=== PATIENT | male | born 1935 | race Hispanic/Latino ===

== ENCOUNTER 2017-08-14 06:24 | Day surgery (SDC) | payer MEDICARE ==
[2017-08-13 14:21] VITALS: BMI 32.5
[2017-08-14 07:06] LABS: BASO # 0.1 K/uL (0.0-0.2); BASO % 1.1 % (0.0-2.0); EOS # 0.2 K/uL (0.0-0.7); HEMOGLOBIN 14.2 g/dL (12.0-18.0); LYMPH # 0.7 K/uL (1.0-4.3); LYMPH % 9.1 % (20.0-40.0); MEAN CELL VOLUME 93.5 fL (80.0-94.0); MEAN CORPUSCULAR HEMOGLOBIN 32.3 pg (27.0-31.0); MEAN CORPUSCULAR HGB CONC 34.5 g/dL (33.0-37.0); MEAN PLATELET VOLUME 7.2 fL (7.2-11.7); MONO # 0.7 K/uL (0.0-0.8); MONO % 8.4 % (0.0-10.0); NEUT # 6.1 K/uL (1.8-7.0); NEUT % 78.4 % (50.0-75.0); PLATELET COUNT 252 K/uL (130-400); RBC 4.41 Mil/uL (4.40-5.90); RED CELL DISTRIBUTION WIDTH 13.5 % (11.5-14.5); WHITE BLOOD COUNT 7.8 K/uL (4.8-10.8)
[2017-08-14 07:27] LABS: BLOOD UREA NITROGEN 32 mg/dL (9-20); GFR AFRICAN-AMERICAN > 60; GFR NON-AFRICAN AMERICAN > 60
[2017-08-14 07:31] LABS: INR 1.1; PROTHROMBIN TIME 12.7 SECONDS (9.7-12.2)
[2017-08-14] MEDS ORDERED: Iodixanol 320 MG/ML 200 ML BOTTLE IV ONE ×2 (07:50→09:06)
[2017-08-14] MEDS ORDERED: Midazolam 2 MG/2 ML VIAL ONE (07:50)
[2017-08-14 08:18] LABS: EOSINOPHIL 2 % (0-4); LYMPHOCYTE 5 % (20-40); MONOCYTE 8 % (0-10); NEUTROPHIL 85 % (50-75); TOTAL CELLS COUNTED 100
[2017-08-14 08:19] LABS: PLATELET ESTIMATE NORMAL (NORMAL)
[2017-08-14 08:20] LABS: ANISOCYTOSIS SLIGHT; POLYCHROMIC SLIGHT
[2017-08-14 08:21] LABS: TOXIC GRANULATION PRESENT
[2017-08-14 09:36] LABS: VENOUS BLOOD GAS BASE EXCESS -2.8 mmol/L (0.0-2.0); VENOUS BLOOD GAS PCO2 44 mmHg (40-60); VENOUS BLOOD GAS PO2 32 mm/Hg (30-55); VENOUS BLOOD PH 7.33 (7.32-7.43)
[2017-08-14 09:40] LABS: ARTERIAL BLOOD GAS HCO3 21.7 mmol/L (21-28); ARTERIAL BLOOD GAS HEMOGLOBIN 12.6 g/dL (11.7-17.4); ARTERIAL BLOOD GAS O2 SAT 94.5 % (95-98); ARTERIAL BLOOD GAS PCO2 40 mm/Hg (35-45); ARTERIAL BLOOD GAS PH 7.34 (7.35-7.45); ARTERIAL BLOOD GAS PO2 67 mm/Hg (80-100); ARTERIAL BLOOD GAS TCO2 22.8 mmol/L (22-28)
[2017-08-14] MEDS ORDERED: Sodium Chloride 0.9% 500 ML IV SCH (10:15)
[2017-08-14] MEDS ORDERED: guaiFENesin 100 mg/5 ml Syrup UD PO STA (13:36)
[2017-08-14 15:38] LABS: SQUAMOUS EPITHIAL 2 /hpf (0-5); URINE AMORPHOUS SEDIMENT FEW /ul (<OCC); URINE BACTERIA FEW (<OCC); URINE BILIRUBIN NEGATIVE (NEGATIVE); URINE BLOOD 1+ (NEGATIVE); URINE CALCIUM OXALATE CRYSTALS FEW /hpf (<OCC); URINE CLARITY Turbid (Clear); URINE COLOR Amber (YELLOW); URINE GLUCOSE (UA) NORMAL (Normal); URINE LEUKOCYTE ESTERASE 3+ Leu/uL (Negative); URINE PROTEIN 3+ mg/dL (NEGATIVE); URINE UROBILINOGEN NORMAL mg/dL (0.2-1.0)
--- NOTE | 2017-08-19 08:48 | CARDCATH ---
PROCEDURE DATE: 08/14/2017 PROCEDURES: 1. Left and right heart catheterization. 2. Coronary angiogram. 3. Thoracic aortogram. 4. Radiological supervision and radiological interpretation of the cardiac catheterization. CLINICAL INDICATIONS: 1. Dyspnea. 2. Severe symptomatic aortic stenosis. 3. Coronary artery disease. 4. Hypertension. 5. Hyperlipidemia. PERFORMING PHYSICIAN: Edis Armando MD PROCEDURE IN DETAIL: After informed consent, the patient was prepped and draped in the usual sterile fashion. Lidocaine 2% was given in the right groin for local anesthesia. Using micropuncture technique, 6-Armenian sheath was introduced into right common femoral artery and a 7-Armenian sheath was introduced into right common femoral vein. Using the [place]-Caroline catheter, right heart catheterization was performed. A JL5 6-Armenian diagnostic catheter engaged into left main coronary artery. Contrast injected and left coronary angiogram was performed. Then, JR4 6-Armenian diagnostic catheter engaged into right coronary artery. Contrast injected and right coronary angiogram was performed. Then using AL1 diagnostic catheter with a stiff shaft straight Glidewire, left ventricle was entered. Using the AL1 diagnostic catheter and straight stiff shaft Glidewire, aortic valve was crossed into the left ventricle. Later the wire was exchanged and a pigtail catheter was introduced. LV end-diastolic pressure was measured. Contrast injected and the LV angiogram was performed. Pressure gradient across the aortic valve was measured. The patient tolerated the procedure well. FINDINGS OF THE LEFT HEART CATHETERIZATION: 1. Left main coronary artery is patent. 2. Prior stent in the LAD is patent, however, ostial LAD has 85% calcific stenosis. Mid and distal LAD is patent. 3. Ramus coronary artery is patent. 4. Left circumflex has a mid 50% nonobstructive stenosis. 5. Right coronary artery is codominant system. Possible right coronary artery has 70% to 80% calcific concentric stenosis. 6. LV ejection fraction is approximately 50%. Mild global hypokinesis. EDP was 35. Mean gradient across the aortic valve is 35 mmHg. FINDINGS OF THE RIGHT HEART CATHETERIZATION: 1. Pressure, PA is 45/15, mean of 27, RV is 46/9, mean of 15, RA 7. Calculation: PA 71.9%, SA 94.5%, cardiac output 5.8 L per minute, cardiac index 3.03 minutes per sq m. 2. LV end-diastolic pressure is 35. 3. LV systolic pressure is 205. 4. Aortic systolic pressure is 170, gradient of 35. Calculated aortic valve area by Hakki equation is 0.9 sq cm. IMPRESSION: 1. Calcific left anterior descending and right coronary artery disease, as described above. 2. Severe aortic stenosis. 3. [id number] pulmonary hypertension. Edis Armando MD
== END 2017-08-14 14:05 | disposition home or self-care (01) ==
LOC: C.CATHLAB 06:24
PROVIDERS: ATTEND Internal Medicine Cardiovascular Disease
DX: I25.10 Atherosclerotic heart disease of native coronary artery without angina pectoris (principal); I35.0 Nonrheumatic aortic (valve) stenosis; I10 Essential (primary) hypertension; E78.5 Hyperlipidemia, unspecified; Z95.5 Presence of coronary angioplasty implant and graft; I27.20 Pulmonary hypertension, unspecified
CPT/HCPCS: 36415; 36600; 80048; 81001; 82803; 85025; 85610; 85730; 87086; 87181; 93453; 93567; C1714; C1760; C1766; C1769; C1887; C1893; J1644; J2250; J3010; J7040; Q9966

== ENCOUNTER 2017-11-23 12:09 | Inpatient (IN) | payer MEDICARE ==
[2017-11-23 12:09] VITALS: BMI 32.5
[2017-11-23 13:04] LABS: BASO # 0.1 K/uL (0.0-0.2); BASO % 0.8 % (0.0-2.0); EOS # 0.2 K/uL (0.0-0.7); EOS % 2.3 % (0.0-4.0); LYMPH # 0.8 K/uL (1.0-4.3); LYMPH % 10.5 % (20.0-40.0); MEAN CELL VOLUME 92.1 fL (80.0-94.0); MEAN CORPUSCULAR HEMOGLOBIN 30.4 pg (27.0-31.0); MEAN PLATELET VOLUME 7.5 fL (7.2-11.7); MONO # 0.6 K/uL (0.0-0.8); MONO % 8.9 % (0.0-10.0); NEUT # 5.6 K/uL (1.8-7.0); NEUT % 77.5 % (50.0-75.0); NRBC % 0.1 % (0.0-2.0); RBC 3.48 Mil/uL (4.40-5.90); RED CELL DISTRIBUTION WIDTH 18.2 % (11.5-14.5); WHITE BLOOD COUNT 7.2 K/uL (4.8-10.8)
[2017-11-23 13:16] LABS: HEMOGLOBIN 10.6 g/dL (12.0-18.0)
[2017-11-23 13:18] LABS: ALB/GLOB RATIO 1.2 (1.0-2.1); ALBUMIN 3.5 g/dL (3.5-5.0); CALCIUM 8.3 mg/dl (8.6-10.4)
[2017-11-23 14:31] LABS: SQUAMOUS EPITHIAL < 1 /hpf (0-5); URINE BACTERIA OCC (<OCC); URINE BILIRUBIN NEGATIVE (NEGATIVE); URINE BLOOD 2+ (NEGATIVE); URINE CLARITY Hazy (Clear); URINE COLOR Amber (YELLOW); URINE GLUCOSE (UA) NORMAL (Normal); URINE LEUKOCYTE ESTERASE 3+ Leu/uL (Negative); URINE PROTEIN 2+ mg/dL (NEGATIVE); URINE TRIPLE PHOSPHATE CRYSTAL MOD /hpf (<OCC); URINE UROBILINOGEN NORMAL mg/dL (0.2-1.0)
--- NOTE | 2017-11-23 14:40 | RAD ---
PROCEDURE: CHEST RADIOGRAPH, 1 VIEW HISTORY: LE edema COMPARISON: 05/11/2014 FINDINGS: LUNGS: Pulmonary vascular congestion. PLEURA: No pneumothorax or pleural fluid seen. CARDIOVASCULAR: Cardiomegaly. OSSEOUS STRUCTURES: No significant abnormalities. VISUALIZED UPPER ABDOMEN: Normal. OTHER FINDINGS: None. IMPRESSION: Cardiomegaly/CHF. Similar degree of pulmonary vascular congestion identified on the prior study.
--- NOTE | 2017-11-23 14:49 | C.PDOC ---
History Of Present Illness 82 y/o male presents to ED for complaints of rash and swelling on bilateral legs that began 2 days ago. Patient also reports symptoms are associated with subjective fever. Patient states he called Dr. Ramirez's office and was advised to come to ER. Chief Complaint (Nursing): Lower Extremity Problem/Injury History Per: Patient History/Exam Limitations: no limitations Onset/Duration Of Symptoms: Days (2) Current Symptoms Are (Timing): Still Present Recent travel outside of the [place]: No Past Medical History Reviewed: Historical Data, Nursing Documentation, Vital Signs Vital Signs: Last Vital Signs Temp 98.2 F 11/23/17 17:20 Pulse 82 11/23/17 17:20 Resp 20 11/23/17 17:20 BP 143/74 11/23/17 17:20 Pulse Ox 96 11/23/17 17:20 - Medical History PMH: Arthritis, CAD, CHF, Dementia, Diabetes, Gall Bladder Disease, HTN, Hypercholesterolemia Surgical History: Cholecystectomy, Coronary Stent - [facility] Procedures DEBRIDEMENT OF NAIL, NAIL BED OR NAIL FOLD (04/19/13) INDIVID PSYCHOTHERAP NEC (04/19/13) LEFT HEART CARDIAC CATH (05/11/14) LT HEART ANGIOCARDIOGRAM (05/11/14) OTHER GROUP THERAPY (04/19/13) REMOVE EYELID LESION NOS (04/08/99) SKIN REPAIR & PLASTY NEC (04/08/99) Family History: States: Unknown Family Hx - Social History Hx Tobacco Use: No Hx Alcohol Use: No Hx Substance Use: No - Immunization History Hx Tetanus Toxoid Vaccination: No Hx Influenza Vaccination: No Hx Pneumococcal Vaccination: No Review Of Systems Constitutional: Positive for: Fever (subjective ). Negative for: Chills Cardiovascular: Negative for: Chest Pain Respiratory: Negative for: Shortness of Breath Gastrointestinal: Negative for: Nausea, Vomiting, Abdominal Pain, Diarrhea Skin: Positive for: Rash (On bilateral legs and swelling) Neurological: Negative for: Weakness, Numbness Physical Exam - Physical Exam Appears: Non-toxic, No Acute Distress Skin: Rash (Erythematous spots on bilateral legs, some linear and some clustered. ) Head: Atraumatic, Normacephalic Eye(s): bilateral: Normal Inspection, PERRL, EOMI Nose: Normal, No Discharge Oral Mucosa: Moist Tongue: Normal Appearing, No Swelling Lips: Normal Appearing, No Swelling Throat: Normal, No Erythema, No Exudate, No Drooling, No Mass Neck: Supple Chest: Symmetrical, No Tenderness Cardiovascular: Rhythm Regular, Murmur (Harsh 3 out of 6 systolic murmur ) Respiratory: Normal Breath Sounds, No Decreased Breath Sounds, No Rales, No Rhonchi, No Wheezing Gastrointestinal/Abdominal: Soft, No Tenderness Extremity: No Calf Tenderness, Swelling (Bilateral; Top of right foot more erythematous and swollen) Neurological/Psych: Oriented x3 (Awake and alert), Normal Speech (Speaking full sentences), Other (No focal deficits ) Gait: Steady ED Course And Treatment - Laboratory Results Result Diagrams: 11/23/17 12:58 11/23/17 12:58 O2 Sat by Pulse Oximetry: 95 (RA) Pulse Ox Interpretation: Normal - Other Rad CXR X-Ray: Viewed By Me, Read By Radiologist Interpretation: PROCEDURE: CHEST RADIOGRAPH, 1 VIEW. HISTORY: LE edema. COMPARISON: 05/11/2014. FINDINGS: LUNGS: Pulmonary vascular congestion. PLEURA: No pneumothorax or pleural fluid seen. CARDIOVASCULAR: Cardiomegaly. OSSEOUS STRUCTURES: No significant abnormalities. VISUALIZED UPPER ABDOMEN: Normal. OTHER FINDINGS: None. IMPRESSION: Cardiomegaly/CHF. Similar degree of pulmonary vascular congestion identified on the prior study. Progress Note: Ordered blood work, EKG, CXR, blood culture, and urinalysis. Labs show signs of UTI. Spoke to and he accepted to take him for admission. Patient will be given one dose of Rocephin IV. Disposition - Disposition Disposition: HOSPITALIZED Disposition Time: 15:00 Condition: FAIR - Clinical Impression Clinical Impression: UTI (urinary tract infection), Rash and nonspecific skin eruption - PA / [employer] SUPERVISOR / Resident Statement MD/DO has reviewed & agrees with the documentation as recorded. - Scribe Statement The provider has reviewed the documentation as recorded by the Luis Felipeibe Cam Ng All medical record entries made by the Devi were at my direction and personally dictated by me. I have reviewed the chart and agree that the record accurately reflects my personal performance of the history, physical exam, medical decision making, and the department course for this patient. I have also personally directed, reviewed, and agree with the discharge instructions and disposition. Decision To Admit - Pt Status Changed To: Hospital Disposition Of: Observation - . Bed Request Type: Regular Admitting Physician: Keely Ramirez Patient Diagnosis: UTI (urinary tract infection), Rash and nonspecific skin eruption
[2017-11-23] MEDS ORDERED: cefTRIAXone IV 1 gm in Dextros 50 ML IVPB ONE (15:07)
[2017-11-23 16:15] VITALS: RESP 20
[2017-11-23] MEDS: metroNIDAZOLE IV 250mg/50 ml 250 MG/50 ML BAG IVPB SCH (22:22)
[2017-11-23] MEDS: (Novolin R) Insulin Human Regular 100 units/ml vial SC SCH (22:22)
[2017-11-24] MEDS: metroNIDAZOLE IV 250mg/50 ml 250 MG/50 ML BAG IVPB SCH ×3 (05:31→21:51)
[2017-11-24] MEDS: (Novolin R) Insulin Human Regular 100 units/ml vial SC SCH ×4 (07:39→21:52)
--- NOTE | 2017-11-24 22:06 | CP.PCM.HP ---
History of Present Illness - History of Present Illness History of Present Illness: Chief complaint: Bilateral leg rash HPI: 82-year-old male with a history of hypertension CAD hypercholesterolemia CAD, status post a stent in 2014, also had a cholecystectomy in the past. Patient also has a history of aortic stenosis. He claims that he had a heart attack 2. He came to the emergency room with increasing symptoms of bilateral leg swelling. He is also complaining of redness, rash, itching. He is having the symptom for almost a week. In the emergency room patient was also feeling extremely weak. He was also noted to have urinary tract infection, and also feeling somewhat weak, tired. He did have a low-grade fever. Cough noted. With mucus production. He denies any chest pain. Palpitation on and off noted. Past medical history: Hypertension CAD hyperlipidemia aortic stenosis history of SC in the past, CAD and stent. Surgical history: Cholecystectomy and cardiac stenting Family history: Father at the age of 79 Mother also of natural cause. Patient has no siblings, no kids. He is living in a senior citizen house Social history: He denied any alcohol or smoking, drinks coffee daily. Currently able to walk with the wheelchair. Current medications noted from the chart. Patient current medications includes metoprolol tartrate, simvastatin, Plavix, lisinopril, Flomax, isosorbide mononitrate Review of system: No headache noted, patient is able to stand up. Complaining of no chest pain or palpitation, bilateral leg swelling itching and rash noted On examination: Vital signs are stable. Chest good air entry bilaterally. Regular heart sound. Systolic murmur bilaterally noted, radiating to the carotids Nontender abdomen. 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 No functional neurological deficit. Pedal edema bilaterally noted. Patient also having redness, itching, and a rash noted bilaterally in the lower extremities. Labs reviewed CBC normal. Chemistry noted, elevated proBNP noted. Urine analysis showing evidence of UTI. Chest x-ray showing vascular prominence, left lower lung effusion noted EKG normal sinus rhythm. First-degree AV block noted. Right bundle branch block also noted. Assessment and recommendation: 82-year-old male with a history of hypertension, hyperlipidemia, CAD, status post a stent, now admitted with the high proBNP, and vascular congestion in the chest x-ray most likely heart failure, decompensated. Associate with the bilateral pedal edema Patient also has associated urinary tract infection, the organism is currently pending. We will start the patient on Lasix, diuretics, oxygen, cardiology evaluation, echocardiogram. Urinary tract infection, will start the patient on antibiotic. Closely monitor for culture. DVT GI prophylaxis. We will repeat x-ray in the morning. We will follow the patient Present on Admission - Present on Admission Any Indicators Present on Admission: No History of DVT/PE: No History of Uncontrolled Diabetes: No Urinary Catheter: No Decubitus Ulcer Present: No Past Patient History - Past Medical History & Family History Past Medical History?: Yes - Past Social History Smoking Status: Never Smoked - CARDIAC Hx Congestive Heart Failure: Yes Hx Hypercholesterolemia: Yes Hx Hypertension: Yes - PULMONARY Hx Respiratory Disorders: No - NEUROLOGICAL Hx Dementia: Yes - HEENT Hx HEENT Problems: Yes (wears glasses) - RENAL Hx Chronic Kidney Disease: No Hx Kidney Stones: No - HEMATOLOGICAL/ONCOLOGICAL Hx Blood Disorders: No - INTEGUMENTARY Hx Dermatological Problems: No - MUSCULOSKELETAL/RHEUMATOLOGICAL Hx Arthritis: Yes - GASTROINTESTINAL Hx Gall Bladder Disease: Yes - GENITOURINARY/GYNECOLOGICAL Hx Genitourinary Disorders: Yes Hx Prostate Problems: Yes - PSYCHIATRIC Hx Substance Use: No - SURGICAL HISTORY Hx Cholecystectomy: Yes Hx Coronary Stent: Yes - ANESTHESIA Hx Anesthesia: Yes Hx Anesthesia Reactions: No Hx Malignant Hyperthermia: No Meds Allergies/Adverse Reactions: Allergies Allergy/AdvReac Type Severity Reaction Status Date / Time No Known Allergies Allergy Verified 05/11/14 18:16 Results - Vital Signs Recent Vital Signs: Last Vital Signs Temp 98.0 F 11/24/17 15:57 Pulse 58 L 11/24/17 15:57 Resp 20 11/24/17 15:57 BP 128/78 11/24/17 17:31 Pulse Ox 96 11/24/17 21:21 - Labs Result Diagrams: 11/23/17 12:58 11/23/17 12:58 Labs: Laboratory Results - last 24 hr 11/24/17 11/24/17 11/24/17 07:38 11:07 16:25 POC Glucose (mg/dL) 120 H 214 H 112 H 11/24/17 21:16 POC Glucose (mg/dL) 144 H
--- NOTE | 2017-11-24 22:08 | CP.PCM.PN ---
Subjective - Date & Time of Evaluation Date of Evaluation: 11/24/17 Time of Evaluation: 22:07 - Subjective Subjective: Patient is now going to the bathroom more frequently. Leg swelling still noted. No chest pain. Denies any nausea. No vomiting noted. Bilateral pedal edema noted. On examination: Vital signs stable. Chest good air entry. Regular heart sound. Systolic murmur noted. Edema noted. Pedal edema, redness present. Culture pending Assessment and recommendation: 82-year-old male with a history of hypertension, hyperlipidemia, CAD, status post a stent. Echocardiogram currently pending. Cardiology evaluation pending. Labs ordered tomorrow. Glucose monitoring. On antibiotic. Intravenous Lasix. We will follow the patient. Objective - Vital Signs/Intake and Output Vital Signs (last 24 hours): Temp Pulse Resp BP Pulse Ox 98.0 F 58 L 20 128/78 96 11/24/17 15:57 11/24/17 15:57 11/24/17 15:57 11/24/17 17:31 11/24/17 21:21 - Medications Medications: Current Medications Aspirin (Ecotrin) 81 mg PO DAILY [facility] Last Admin: 11/24/17 09:52 Dose: 81 mg Furosemide (Lasix) 20 mg IVP DAILY [facility] Last Admin: 11/24/17 09:52 Dose: 20 mg Heparin Sodium (Porcine) (Heparin) 5,000 units SC Q12 [facility] Last Admin: 11/24/17 21:51 Dose: 5,000 units Metronidazole (Flagyl) 250 mg in 50 mls @ 100 mls/hr IVPB Q8 [facility] PRN Reason: Protocol Stop: 11/28/17 22:01 Last Admin: 11/24/17 21:51 Dose: 100 mls/hr Ceftriaxone Sodium 1 gm/ (Sodium Chloride) 100 mls @ 100 mls/hr IVPB Q12H [facility] PRN Reason: Protocol Last Admin: 11/24/17 21:50 Dose: 100 mls/hr Insulin Human Regular (Novolin R) 0 unit SC ACHS [facility] PRN Reason: Protocol Last Admin: 11/24/17 21:52 Dose: Not Given Metoprolol Tartrate (Lopressor) 25 mg PO BID [facility] Last Admin: 11/24/17 17:31 Dose: 25 mg Rosuvastatin Calcium (Crestor) 10 mg PO HS [facility] Last Admin: 11/24/17 21:50 Dose: 10 mg - Labs Labs: 11/23/17 12:58 11/23/17 12:58
[2017-11-25] MEDS: metroNIDAZOLE IV 250mg/50 ml 250 MG/50 ML BAG IVPB SCH ×3 (06:00→21:19)
[2017-11-25 07:33] LABS: BASO # 0.1 K/uL (0.0-0.2); BASO % 0.8 % (0.0-2.0); EOS # 0.3 K/uL (0.0-0.7); LYMPH # 1.1 K/uL (1.0-4.3); LYMPH % 12.4 % (20.0-40.0); MEAN CELL VOLUME 92.5 fL (80.0-94.0); MEAN CORPUSCULAR HEMOGLOBIN 29.9 pg (27.0-31.0); MEAN CORPUSCULAR HGB CONC 32.3 g/dL (33.0-37.0); MEAN PLATELET VOLUME 7.9 fL (7.2-11.7); MONO # 0.8 K/uL (0.0-0.8); MONO % 9.3 % (0.0-10.0); NEUT # 6.7 K/uL (1.8-7.0); NEUT % 74.5 % (50.0-75.0); RBC 4.22 Mil/uL (4.40-5.90); RED CELL DISTRIBUTION WIDTH 17.8 % (11.5-14.5)
[2017-11-25 07:44] LABS: HEMOGLOBIN 12.6 g/dL (12.0-18.0)
[2017-11-25 07:55] LABS: CK-MB 2.35 ng/mL (0.0-3.38); TROPONIN I 0.045 ng/mL (0.00-0.120)
[2017-11-25 08:02] LABS: ALB/GLOB RATIO 1.1 (1.0-2.1); ALBUMIN 3.9 g/dL (3.5-5.0); CALCIUM 8.9 mg/dl (8.6-10.4)
[2017-11-25] MEDS: (Novolin R) Insulin Human Regular 100 units/ml vial SC SCH ×4 (08:11→21:20)
[2017-11-25] MEDS ORDERED: Pneumococcal 23-Valent Vaccine IM ONE (10:00)
--- NOTE | 2017-11-25 13:53 | CP.PCM.CON ---
History of Present Illness - History of Present Illness History of Present Illness: Podiatry consult note for Dr. De Leon 82 yo male patient with PMHx of hypertension, CAD, hypercholesterolemia, CAD, s/ p stent in 2014, aortic stenosis, heart attack, and cholecystectomy was seen at bedside this morning after request for podiatry consultation with Dr. De Leon. Patient presents with rash, localized erythema to bilateral lower extremities. Patient states the skin itches and admits to scratching bilateral legs. Patient denies of any trauma to bilateral lower extremities. Patient denies of taking any medication for the lower extremity condition. Patient denies of any N/V/F/C or SOB Review of Systems - Constitutional Constitutional: As Per HPI Past Patient History - Past Medical History & Family History Past Medical History?: Yes - Past Social History Smoking Status: Never Smoked - CARDIAC Hx Congestive Heart Failure: Yes Hx Hypercholesterolemia: Yes Hx Hypertension: Yes - PULMONARY Hx Respiratory Disorders: No - NEUROLOGICAL Hx Dementia: Yes - HEENT Hx HEENT Problems: Yes (wears glasses) - RENAL Hx Chronic Kidney Disease: No Hx Kidney Stones: No - HEMATOLOGICAL/ONCOLOGICAL Hx Blood Disorders: No - INTEGUMENTARY Hx Dermatological Problems: No - MUSCULOSKELETAL/RHEUMATOLOGICAL Hx Arthritis: Yes - GASTROINTESTINAL Hx Gall Bladder Disease: Yes - GENITOURINARY/GYNECOLOGICAL Hx Genitourinary Disorders: Yes Hx Prostate Problems: Yes - PSYCHIATRIC Hx Substance Use: No - SURGICAL HISTORY Hx Cholecystectomy: Yes Hx Coronary Stent: Yes - ANESTHESIA Hx Anesthesia: Yes Hx Anesthesia Reactions: No Hx Malignant Hyperthermia: No Meds Allergies/Adverse Reactions: Allergies Allergy/AdvReac Type Severity Reaction Status Date / Time No Known Allergies Allergy Verified 05/11/14 18:16 - Medications Medications: Current Medications Aspirin (Ecotrin) 81 mg PO DAILY [facility] Last Admin: 11/25/17 09:43 Dose: 81 mg Furosemide (Lasix) 20 mg IVP DAILY [facility] Last Admin: 11/25/17 09:47 Dose: 20 mg Heparin Sodium (Porcine) (Heparin) 5,000 units SC Q12 [facility] Last Admin: 11/25/17 09:43 Dose: 5,000 units Metronidazole (Flagyl) 250 mg in 50 mls @ 100 mls/hr IVPB Q8 [facility] PRN Reason: Protocol Stop: 11/28/17 22:01 Last Admin: 11/25/17 06:00 Dose: 100 mls/hr Ceftriaxone Sodium 1 gm/ (Sodium Chloride) 100 mls @ 100 mls/hr IVPB Q12H [facility] PRN Reason: Protocol Last Admin: 11/25/17 09:43 Dose: 100 mls/hr Insulin Human Regular (Novolin R) 0 unit SC ACHS [facility] PRN Reason: Protocol Last Admin: 11/25/17 12:24 Dose: Not Given Metoprolol Tartrate (Lopressor) 25 mg PO BID [facility] Last Admin: 11/25/17 09:48 Dose: 25 mg Rosuvastatin Calcium (Crestor) 10 mg PO HS [facility] Last Admin: 11/24/17 21:50 Dose: 10 mg Physical Exam - Constitutional Appears: Well, Non-toxic, No Acute Distress - Head Exam Head Exam: ATRAUMATIC - Extremities Exam Additional comments: Bilateral lower extremity exam DERM; No open wound is noted. Erythema noted to lateral aspect of right lower extremity, multiple focal rash noted to bilateral lower extremities, superficial abrasion noted to bilateral lower extremity skin consistent with scratch solares. No purulent drainage noted, mild mal-odor noted. VASC: Non-palpable DP and PT noted bilateally, pitting edema noted +2 bilaterally, DEAN OF [employer]ADU[employer]UDIES less than 3 seconds to digits noted NEURO: Gross sensation intact ORTHO: No pain induced on palpation to lower extremity joints, decreased passive , active ROM to joints distal to ankle b/l - Neurological Exam Neurological exam: Alert, Oriented x3 - Psychiatric Exam Psychiatric exam: Normal Affect, Normal Mood - Skin Skin Exam: Abrasion, Erythema, Rash Results - Vital Signs Recent Vital Signs: Last Vital Signs Temp 98.5 F 11/25/17 08:02 Pulse 79 11/25/17 08:02 Resp 20 11/25/17 08:02 BP 129/69 11/25/17 09:48 Pulse Ox 98 11/25/17 08:02 - Labs Result Diagrams: 11/25/17 07:17 11/25/17 07:17 Labs: Laboratory Results - last 24 hr 11/24/17 11/24/17 11/24/17 11:07 16:25 21:16 WBC RBC Hgb Hct MCV MCH MCHC RDW Plt Count MPV Neut % (Auto) Lymph % (Auto) [place] % (Auto) Eos % (Auto) Baso % (Auto) Neut # (Auto) Lymph # (Auto) [place] # (Auto) Eos # (Auto) Baso # (Auto) Sodium Potassium Chloride Carbon Dioxide Anion Gap BUN Creatinine Est GFR ( Amer) Est GFR (Non-Af Amer) POC Glucose (mg/dL) 214 H 112 H 144 H Random Glucose Calcium Magnesium Total Bilirubin AST ALT Alkaline Phosphatase Total Creatine Kinase CK-MB (Mass) Troponin I NT-Pro-B Natriuret Pep Total Protein Albumin Globulin Albumin/Globulin Ratio 11/25/17 11/25/17 11/25/17 02:23 06:56 07:17 WBC 9.0 RBC 4.22 L Hgb 12.6 D Hct 39.0 MCV 92.5 MCH 29.9 MCHC 32.3 L RDW 17.8 H Plt Count 237 MPV 7.9 Neut % (Auto) 74.5 Lymph % (Auto) 12.4 L [place] % (Auto) 9.3 Eos % (Auto) 3.0 Baso % (Auto) 0.8 Neut # (Auto) 6.7 Lymph # (Auto) 1.1 [place] # (Auto) 0.8 Eos # (Auto) 0.3 Baso # (Auto) 0.1 Sodium Potassium Chloride Carbon Dioxide Anion Gap BUN Creatinine Est GFR ( Amer) Est GFR (Non-Af Amer) POC Glucose (mg/dL) 167 H 129 H Random Glucose Calcium Magnesium Total Bilirubin AST ALT Alkaline Phosphatase Total Creatine Kinase CK-MB (Mass) Troponin I NT-Pro-B Natriuret Pep Total Protein Albumin Globulin Albumin/Globulin Ratio 11/25/17 11/25/17 07:17 10:49 WBC RBC Hgb Hct MCV MCH MCHC RDW Plt Count MPV Neut % (Auto) Lymph % (Auto) [place] % (Auto) Eos % (Auto) Baso % (Auto) Neut # (Auto) Lymph # (Auto) [place] # (Auto) Eos # (Auto) Baso # (Auto) Sodium 146 Potassium 5.2 Chloride 108 H Carbon Dioxide 22 Anion Gap 21 H BUN 50 H Creatinine 1.6 H Est GFR ( Amer) 50 Est GFR (Non-Af Amer) 41 POC Glucose (mg/dL) 175 H Random Glucose 113 H Calcium 8.9 Magnesium 2.2 Total Bilirubin 0.6 AST 26 ALT 35 Alkaline Phosphatase 82 Total Creatine Kinase 85 CK-MB (Mass) 2.35 Troponin I 0.0450 NT-Pro-B Natriuret Pep 67101 H Total Protein 7.4 Albumin 3.9 Globulin 3.5 Albumin/Globulin Ratio 1.1 Assessment & Plan - Assessment and Plan (Free Text) Assessment: 82 yo male patient presents with rash and superficial abrasions to bilateral lower extremities; fungal infection vs. bacterial Plan: Patent was seen at bedside this PM with attending Dr. De Leon All questions and concerns addressed labs and vitals reviewed Topical steriod cream ordered; to be applied daily bilaterally Bilateral lower extremities applied with TREVA bandage continue IV abx Podiatry will continue to follow in-house
--- NOTE | 2017-11-25 15:46 | CP.PCM.CON ---
History of Present Illness - History of Present Illness History of Present Illness: Patient seen along with resident DR Callahan who will dictate the full consult. Patient has erythematous patches of both lower extremities. Patient has pitting edema bilaterally with no palpable pedal pulses/ Ordered lotrisone cream and huong wraps . Will follow patient while he is hospitalized. Thank you for allowing us to participate in the care of your patient. Past Patient History - Past Medical History & Family History Past Medical History?: Yes - Past Social History Smoking Status: Never Smoked - CARDIAC Hx Congestive Heart Failure: Yes Hx Hypercholesterolemia: Yes Hx Hypertension: Yes - PULMONARY Hx Respiratory Disorders: No - NEUROLOGICAL Hx Dementia: Yes - HEENT Hx HEENT Problems: Yes (wears glasses) - RENAL Hx Chronic Kidney Disease: No Hx Kidney Stones: No - HEMATOLOGICAL/ONCOLOGICAL Hx Blood Disorders: No - INTEGUMENTARY Hx Dermatological Problems: No - MUSCULOSKELETAL/RHEUMATOLOGICAL Hx Arthritis: Yes - GASTROINTESTINAL Hx Gall Bladder Disease: Yes - GENITOURINARY/GYNECOLOGICAL Hx Genitourinary Disorders: Yes Hx Prostate Problems: Yes - PSYCHIATRIC Hx Substance Use: No - SURGICAL HISTORY Hx Cholecystectomy: Yes Hx Coronary Stent: Yes - ANESTHESIA Hx Anesthesia: Yes Hx Anesthesia Reactions: No Hx Malignant Hyperthermia: No Meds Allergies/Adverse Reactions: Allergies Allergy/AdvReac Type Severity Reaction Status Date / Time No Known Allergies Allergy Verified 05/11/14 18:16 - Medications Medications: Current Medications Aspirin (Ecotrin) 81 mg PO DAILY [facility] Last Admin: 11/25/17 09:43 Dose: 81 mg Betamethasone/Clotrimazole (Lotrisone) 0 gm TOP DAILY [facility] Furosemide (Lasix) 20 mg IVP DAILY [facility] Last Admin: 11/25/17 09:47 Dose: 20 mg Heparin Sodium (Porcine) (Heparin) 5,000 units SC Q12 [facility] Last Admin: 11/25/17 09:43 Dose: 5,000 units Metronidazole (Flagyl) 250 mg in 50 mls @ 100 mls/hr IVPB Q8 [facility] PRN Reason: Protocol Stop: 11/28/17 22:01 Last Admin: 11/25/17 13:58 Dose: 100 mls/hr Ceftriaxone Sodium 1 gm/ (Sodium Chloride) 100 mls @ 100 mls/hr IVPB Q12H [facility] PRN Reason: Protocol Last Admin: 11/25/17 09:43 Dose: 100 mls/hr Insulin Human Regular (Novolin R) 0 unit SC ACHS [facility] PRN Reason: Protocol Last Admin: 11/25/17 12:24 Dose: Not Given Metoprolol Tartrate (Lopressor) 25 mg PO BID [facility] Last Admin: 11/25/17 09:48 Dose: 25 mg Rosuvastatin Calcium (Crestor) 10 mg PO HS [facility] Last Admin: 11/24/17 21:50 Dose: 10 mg Results - Vital Signs Recent Vital Signs: Last Vital Signs Temp 98.5 F 11/25/17 08:02 Pulse 79 11/25/17 08:02 Resp 20 11/25/17 08:02 BP 129/69 11/25/17 09:48 Pulse Ox 98 11/25/17 08:02 - Labs Result Diagrams: 11/25/17 07:17 11/25/17 07:17 Labs: Laboratory Results - last 24 hr 11/24/17 11/24/17 11/24/17 11:07 16:25 21:16 WBC RBC Hgb Hct MCV MCH MCHC RDW Plt Count MPV Neut % (Auto) Lymph % (Auto) Collin % (Auto) Eos % (Auto) Baso % (Auto) Neut # (Auto) Lymph # (Auto) Collin # (Auto) Eos # (Auto) Baso # (Auto) Sodium Potassium Chloride Carbon Dioxide Anion Gap BUN Creatinine Est GFR ( Amer) Est GFR (Non-Af Amer) POC Glucose (mg/dL) 214 H 112 H 144 H Random Glucose Calcium Magnesium Total Bilirubin AST ALT Alkaline Phosphatase Total Creatine Kinase CK-MB (Mass) Troponin I NT-Pro-B Natriuret Pep Total Protein Albumin Globulin Albumin/Globulin Ratio 11/25/17 11/25/17 11/25/17 02:23 06:56 07:17 WBC 9.0 RBC 4.22 L Hgb 12.6 D Hct 39.0 MCV 92.5 MCH 29.9 MCHC 32.3 L RDW 17.8 H Plt Count 237 MPV 7.9 Neut % (Auto) 74.5 Lymph % (Auto) 12.4 L Collin % (Auto) 9.3 Eos % (Auto) 3.0 Baso % (Auto) 0.8 Neut # (Auto) 6.7 Lymph # (Auto) 1.1 Collin # (Auto) 0.8 Eos # (Auto) 0.3 Baso # (Auto) 0.1 Sodium Potassium Chloride Carbon Dioxide Anion Gap BUN Creatinine Est GFR ( Amer) Est GFR (Non-Af Amer) POC Glucose (mg/dL) 167 H 129 H Random Glucose Calcium Magnesium Total Bilirubin AST ALT Alkaline Phosphatase Total Creatine Kinase CK-MB (Mass) Troponin I NT-Pro-B Natriuret Pep Total Protein Albumin Globulin Albumin/Globulin Ratio 11/25/17 11/25/17 07:17 10:49 WBC RBC Hgb Hct MCV MCH MCHC RDW Plt Count MPV Neut % (Auto) Lymph % (Auto) Collin % (Auto) Eos % (Auto) Baso % (Auto) Neut # (Auto) Lymph # (Auto) Collin # (Auto) Eos # (Auto) Baso # (Auto) Sodium 146 Potassium 5.2 Chloride 108 H Carbon Dioxide 22 Anion Gap 21 H BUN 50 H Creatinine 1.6 H Est GFR ( Amer) 50 Est GFR (Non-Af Amer) 41 POC Glucose (mg/dL) 175 H Random Glucose 113 H Calcium 8.9 Magnesium 2.2 Total Bilirubin 0.6 AST 26 ALT 35 Alkaline Phosphatase 82 Total Creatine Kinase 85 CK-MB (Mass) 2.35 Troponin I 0.0450 NT-Pro-B Natriuret Pep 88536 H Total Protein 7.4 Albumin 3.9 Globulin 3.5 Albumin/Globulin Ratio 1.1
--- NOTE | 2017-11-25 22:38 | CP.PCM.CON ---
History of Present Illness - History of Present Illness History of Present Illness: Patient seen and evaluated Hx of and CAD No cardiac symptoms at present admitted for infection 82 y/o male presents to ED for complaints of rash and swelling on bilateral legs that began 2 days ago. Patient also reports symptoms are associated with subjective fever. Patient states he called Dr. Ramirez's office and was advised to come to ER. - Medical History PMH: Arthritis, CAD, CHF, Dementia, Diabetes, Gall Bladder Disease, HTN, Hypercholesterolemia Surgical History: Cholecystectomy, Coronary Stent - [facility] Procedures DEBRIDEMENT OF NAIL, NAIL BED OR NAIL FOLD (04/19/13) INDIVID PSYCHOTHERAP NEC (04/19/13) LEFT HEART CARDIAC CATH (05/11/14) LT HEART ANGIOCARDIOGRAM (05/11/14) OTHER GROUP THERAPY (04/19/13) REMOVE EYELID LESION NOS (04/08/99) SKIN REPAIR & PLASTY NEC (04/08/99) Family History: States: Unknown Family Hx - Social History Hx Tobacco Use: No Hx Alcohol Use: No Hx Substance Use: No - Immunization History Hx Tetanus Toxoid Vaccination: No Hx Influenza Vaccination: No Hx Pneumococcal Vaccination: No Review Of Systems Constitutional: Positive for: Fever (subjective ). Negative for: Chills Cardiovascular: Negative for: Chest Pain Respiratory: Negative for: Shortness of Breath Gastrointestinal: Negative for: Nausea, Vomiting, Abdominal Pain, Diarrhea Skin: Positive for: Rash (On bilateral legs and swelling) Neurological: Negative for: Weakness, Numbness Physical Exam - Physical Exam Appears: Non-toxic, No Acute Distress Skin: Rash (Erythematous spots on bilateral legs, some linear and some clustered. ) Head: Atraumatic, Normacephalic Eye(s): bilateral: Normal Inspection, PERRL, EOMI Nose: Normal, No Discharge Oral Mucosa: Moist Tongue: Normal Appearing, No Swelling Lips: Normal Appearing, No Swelling Throat: Normal, No Erythema, No Exudate, No Drooling, No Mass Neck: Supple Chest: Symmetrical, No Tenderness Cardiovascular: Rhythm Regular, Murmur (Harsh 3 out of 6 systolic murmur ) Respiratory: Normal Breath Sounds, No Decreased Breath Sounds, No Rales, No Rhonchi, No Wheezing Gastrointestinal/Abdominal: Soft, No Tenderness Extremity: No Calf Tenderness, Swelling (Bilateral; Top of right foot more erythematous and swollen) Neurological/Psych: Oriented x3 (Awake and alert), Normal Speech (Speaking full sentences), Other (No focal deficits ) Gait: Steady Past Patient History - Past Medical History & Family History Past Medical History?: Yes - Past Social History Smoking Status: Never Smoked - CARDIAC Hx Congestive Heart Failure: Yes Hx Hypercholesterolemia: Yes Hx Hypertension: Yes - PULMONARY Hx Respiratory Disorders: No - NEUROLOGICAL Hx Dementia: Yes - HEENT Hx HEENT Problems: Yes (wears glasses) - RENAL Hx Chronic Kidney Disease: No Hx Kidney Stones: No - HEMATOLOGICAL/ONCOLOGICAL Hx Blood Disorders: No - INTEGUMENTARY Hx Dermatological Problems: No - MUSCULOSKELETAL/RHEUMATOLOGICAL Hx Arthritis: Yes - GASTROINTESTINAL Hx Gall Bladder Disease: Yes - GENITOURINARY/GYNECOLOGICAL Hx Genitourinary Disorders: Yes Hx Prostate Problems: Yes - PSYCHIATRIC Hx Substance Use: No - SURGICAL HISTORY Hx Cholecystectomy: Yes Hx Coronary Stent: Yes - ANESTHESIA Hx Anesthesia: Yes Hx Anesthesia Reactions: No Hx Malignant Hyperthermia: No Meds Allergies/Adverse Reactions: Allergies Allergy/AdvReac Type Severity Reaction Status Date / Time No Known Allergies Allergy Verified 05/11/14 18:16 - Medications Medications: Current Medications Aspirin (Ecotrin) 81 mg PO DAILY [facility] Last Admin: 11/25/17 09:43 Dose: 81 mg Betamethasone/Clotrimazole (Lotrisone) 0 gm TOP DAILY [facility] Furosemide (Lasix) 20 mg IVP DAILY [facility] Last Admin: 11/25/17 09:47 Dose: 20 mg Heparin Sodium (Porcine) (Heparin) 5,000 units SC Q12 [facility] Last Admin: 11/25/17 21:19 Dose: 5,000 units Metronidazole (Flagyl) 250 mg in 50 mls @ 100 mls/hr IVPB Q8 [facility] PRN Reason: Protocol Stop: 11/28/17 22:01 Last Admin: 11/25/17 21:19 Dose: 100 mls/hr Ceftriaxone Sodium 1 gm/ (Sodium Chloride) 100 mls @ 100 mls/hr IVPB Q12H [facility] PRN Reason: Protocol Last Admin: 11/25/17 21:21 Dose: 100 mls/hr Insulin Human Regular (Novolin R) 0 unit SC ACHS [facility] PRN Reason: Protocol Last Admin: 11/25/17 21:20 Dose: Not Given Metoprolol Tartrate (Lopressor) 25 mg PO BID [facility] Last Admin: 11/25/17 17:41 Dose: 25 mg Rosuvastatin Calcium (Crestor) 10 mg PO HS [facility] Last Admin: 11/25/17 21:18 Dose: 10 mg Results - Vital Signs Recent Vital Signs: Last Vital Signs Temp 97.9 F 11/25/17 16:00 Pulse 57 L 11/25/17 16:00 Resp 20 11/25/17 16:00 BP 118/75 11/25/17 17:41 Pulse Ox 97 11/25/17 16:00 - Labs Result Diagrams: 11/27/17 08:02 11/27/17 08:02 Labs: Laboratory Results - last 24 hr 11/25/17 11/25/17 11/25/17 02:23 06:56 07:17 WBC 9.0 RBC 4.22 L Hgb 12.6 D Hct 39.0 MCV 92.5 MCH 29.9 MCHC 32.3 L RDW 17.8 H Plt Count 237 MPV 7.9 Neut % (Auto) 74.5 Lymph % (Auto) 12.4 L Hunt % (Auto) 9.3 Eos % (Auto) 3.0 Baso % (Auto) 0.8 Neut # (Auto) 6.7 Lymph # (Auto) 1.1 Hunt # (Auto) 0.8 Eos # (Auto) 0.3 Baso # (Auto) 0.1 Sodium Potassium Chloride Carbon Dioxide Anion Gap BUN Creatinine Est GFR ( Amer) Est GFR (Non-Af Amer) POC Glucose (mg/dL) 167 H 129 H Random Glucose Calcium Magnesium Total Bilirubin AST ALT Alkaline Phosphatase Total Creatine Kinase CK-MB (Mass) Troponin I NT-Pro-B Natriuret Pep Total Protein Albumin Globulin Albumin/Globulin Ratio 11/25/17 11/25/17 11/25/17 07:17 10:49 16:07 WBC RBC Hgb Hct MCV MCH MCHC RDW Plt Count MPV Neut % (Auto) Lymph % (Auto) Hunt % (Auto) Eos % (Auto) Baso % (Auto) Neut # (Auto) Lymph # (Auto) Hunt # (Auto) Eos # (Auto) Baso # (Auto) Sodium 146 Potassium 5.2 Chloride 108 H Carbon Dioxide 22 Anion Gap 21 H BUN 50 H Creatinine 1.6 H Est GFR ( Amer) 50 Est GFR (Non-Af Amer) 41 POC Glucose (mg/dL) 175 H 129 H Random Glucose 113 H Calcium 8.9 Magnesium 2.2 Total Bilirubin 0.6 AST 26 ALT 35 Alkaline Phosphatase 82 Total Creatine Kinase 85 CK-MB (Mass) 2.35 Troponin I 0.0450 NT-Pro-B Natriuret Pep 03183 H Total Protein 7.4 Albumin 3.9 Globulin 3.5 Albumin/Globulin Ratio 1.1 11/25/17 21:14 WBC RBC Hgb Hct MCV MCH MCHC RDW Plt Count MPV Neut % (Auto) Lymph % (Auto) Hunt % (Auto) Eos % (Auto) Baso % (Auto) Neut # (Auto) Lymph # (Auto) Hunt # (Auto) Eos # (Auto) Baso # (Auto) Sodium Potassium Chloride Carbon Dioxide Anion Gap BUN Creatinine Est GFR ( Amer) Est GFR (Non-Af Amer) POC Glucose (mg/dL) 159 H Random Glucose Calcium Magnesium Total Bilirubin AST ALT Alkaline Phosphatase Total Creatine Kinase CK-MB (Mass) Troponin I NT-Pro-B Natriuret Pep Total Protein Albumin Globulin Albumin/Globulin Ratio Assessment & Plan - Assessment and Plan (Free Text) Assessment: 82-year-old male with a history of , hypertension, hyperlipidemia, CAD, status post a stent, now admitted with the high proBNP, and vascular congestion in the chest x-ray most likely heart failure, decompensated. Associate with the bilateral pedal edema Patient also has associated urinary tract infection, the organism is currently pending. We will start the patient on Lasix, diuretics, oxygen, cardiology evaluation, echocardiogram. Urinary tract infection, will start the patient on antibiotic. Closely monitor for culture. DVT GI prophylaxis. We will repeat x-ray in the morning. We will follow the patient
--- NOTE | 2017-11-25 22:41 | CP.PCM.PN ---
Subjective - Date & Time of Evaluation Date of Evaluation: 11/25/17 Time of Evaluation: 22:40 - Subjective Subjective: Patient is walking around. Comfortable. But leg swelling still noted. Redness present. 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 Chest bilateral good air entry wheezing noted irregular heart sound nontender abdomen no Bilateral pedal edema noted Excoriation in the legs noted. Urinary culture showing evidence of gram-negative bacteria Assessment and recommendation: 82-year-old male with the history of hypertension hypercholesterolemia CAD AVR. Admitted to the hospital with a possible decompensated systolic heart failure. Cellulitis. Possible urinary tract infection. We'll continue the current treatment. Objective - Vital Signs/Intake and Output Vital Signs (last 24 hours): Temp Pulse Resp BP Pulse Ox 97.9 F 57 L 20 118/75 97 11/25/17 16:00 11/25/17 16:00 11/25/17 16:00 11/25/17 17:41 11/25/17 16:00 Intake and Output: 11/25/17 11/26/17 18:59 06:59 Intake Total 600 Balance 600 - Medications Medications: Current Medications Aspirin (Ecotrin) 81 mg PO DAILY [facility] Last Admin: 11/25/17 09:43 Dose: 81 mg Betamethasone/Clotrimazole (Lotrisone) 0 gm TOP DAILY [facility] Furosemide (Lasix) 20 mg IVP DAILY [facility] Last Admin: 11/25/17 09:47 Dose: 20 mg Heparin Sodium (Porcine) (Heparin) 5,000 units SC Q12 [facility] Last Admin: 11/25/17 21:19 Dose: 5,000 units Metronidazole (Flagyl) 250 mg in 50 mls @ 100 mls/hr IVPB Q8 [facility] PRN Reason: Protocol Stop: 11/28/17 22:01 Last Admin: 11/25/17 21:19 Dose: 100 mls/hr Ceftriaxone Sodium 1 gm/ (Sodium Chloride) 100 mls @ 100 mls/hr IVPB Q12H [facility] PRN Reason: Protocol Last Admin: 11/25/17 21:21 Dose: 100 mls/hr Insulin Human Regular (Novolin R) 0 unit SC ACHS [facility] PRN Reason: Protocol Last Admin: 11/25/17 21:20 Dose: Not Given Metoprolol Tartrate (Lopressor) 25 mg PO BID [facility] Last Admin: 11/25/17 17:41 Dose: 25 mg Rosuvastatin Calcium (Crestor) 10 mg PO HS [facility] Last Admin: 11/25/17 21:18 Dose: 10 mg - Labs Labs: 11/25/17 07:17 11/25/17 07:17
[2017-11-26] MEDS: metroNIDAZOLE IV 250mg/50 ml 250 MG/50 ML BAG IVPB SCH ×3 (05:48→21:08)
--- NOTE | 2017-11-26 05:52 | CARD ---
APPROVED REPORT EKG Measurement Heart [id number] <Conclusion> Sinus rhythm with 1st degree AV block Left axis deviation Right bundle branch block T wave abnormality, consider lateral ischemia Abnormal ECG
[2017-11-26] MEDS: (Novolin R) Insulin Human Regular 100 units/ml vial SC SCH ×2 (07:40→11:52)
[2017-11-26] MEDS ORDERED: Pneumococcal 23-Valent Vaccine IM ONE (10:00)
[2017-11-26] MEDS: Clotrimazole/Betamethasone Cream(15 gm) TOP SCH (10:15)
--- NOTE | 2017-11-26 12:00 | CP.PCM.PN ---
Subjective - Date & Time of Evaluation Date of Evaluation: 11/26/17 Time of Evaluation: 11:57 - Subjective Subjective: Podiatry progress note for Dr. De Leon 82 y/o male seen at bedside for bilateral lower extremity rash with cellulitis. Patient AAOX3 and is in no acute distress. Patient dressing was clean, dry and intact. Patient sitting comfortably, and denies scratching his legs. Patient denies any pedal complaints at this time. Patient denies F/V/N/SOB/CP/pain to posterior calf Objective - Vital Signs/Intake and Output Vital Signs (last 24 hours): Temp Pulse Resp BP Pulse Ox 97.8 F 70 20 135/89 96 11/26/17 07:46 11/26/17 07:46 11/26/17 07:46 11/26/17 10:09 11/26/17 07:46 Intake and Output: 11/26/17 11/26/17 06:59 18:59 Intake Total 300 Balance 300 - Medications Medications: Current Medications Aspirin (Ecotrin) 81 mg PO DAILY [facility] Last Admin: 11/26/17 10:11 Dose: 81 mg Betamethasone/Clotrimazole (Lotrisone) 0 gm TOP DAILY [facility] Last Admin: 11/26/17 10:15 Dose: Not Given Furosemide (Lasix) 20 mg IVP DAILY [facility] Last Admin: 11/26/17 10:09 Dose: 20 mg Heparin Sodium (Porcine) (Heparin) 5,000 units SC Q12 [facility] Last Admin: 11/26/17 10:08 Dose: 5,000 units Metronidazole (Flagyl) 250 mg in 50 mls @ 100 mls/hr IVPB Q8 [facility] PRN Reason: Protocol Stop: 11/28/17 22:01 Last Admin: 11/26/17 05:48 Dose: 100 mls/hr Meropenem 500 mg/ Sodium (Chloride) 100 mls @ 100 mls/hr IVPB Q8 [facility] PRN Reason: Protocol Insulin Human Regular (Novolin R) 0 unit SC ACHS [facility] PRN Reason: Protocol Last Admin: 11/26/17 11:52 Dose: 3 units Metoprolol Tartrate (Lopressor) 25 mg PO BID [facility] Last Admin: 11/26/17 10:09 Dose: 25 mg Rosuvastatin Calcium (Crestor) 10 mg PO HS [facility] Last Admin: 11/25/17 21:18 Dose: 10 mg - Labs Labs: 11/25/17 07:17 11/25/17 07:17 - Constitutional Appears: Well, Non-toxic, No Acute Distress - Head Exam Head Exam: ATRAUMATIC, NORMOCEPHALIC - Extremities Exam Additional comments: Bilateral Lower Extremity Examination VASC: pedal pulses non-palpable bilaterally, TG warm to warm, +2 pitting edema noted bilaterally, CFT less than 3 second X 10 NEURO: grossly intact DERM: multiple focal rashes noted bilaterally to anterior aspect of right leg and anterior and medial aspects of the left leg, +2 pitting edema noted to lower legs bilaterally, superficial abrasions noted bilaterally consistent with scratch solares, no drainage, no malodor MSK: no pain on palpation to lower extremity joints, decreased passive ROM to joints distal to ankle b/l - Neurological Exam Neurological Exam: Alert, Awake, Oriented x3 - Psychiatric Exam Psychiatric exam: Normal Affect, Normal Mood Assessment and Plan - Assessment and Plan (Free Text) Assessment: 82 y/o male seen at bedside for bilateral lower extremity rashes and cellulitis Plan: Patient seen and evaluated at bedside Patient plan discussed with attending, Dr. De Leon Charts, Labs and Vitals reviewed Bilateral lower extremity- Lotrisone applied and legs wrapped with TREVA Bandage Continue Iv Abx Podiatry will continue to follow patient in-house
[2017-11-26] MEDS: Meropenem 500 MG in Sodium Chloride 0.9% 100 ML IVPB SCH (14:24)
--- NOTE | 2017-11-26 15:41 | CP.PCM.CON ---
History of Present Illness - History of Present Illness History of Present Illness: dictated Past Patient History - Past Medical History & Family History Past Medical History?: Yes - Past Social History Smoking Status: Unknown If Ever Smoked - CARDIAC Hx Congestive Heart Failure: Yes Hx Hypercholesterolemia: Yes Hx Hypertension: Yes - PULMONARY Hx Respiratory Disorders: No - NEUROLOGICAL Hx Dementia: Yes - HEENT Hx HEENT Problems: Yes (wears glasses) - RENAL Hx Chronic Kidney Disease: No Hx Kidney Stones: No - HEMATOLOGICAL/ONCOLOGICAL Hx Blood Disorders: No - INTEGUMENTARY Hx Dermatological Problems: No - MUSCULOSKELETAL/RHEUMATOLOGICAL Hx Arthritis: Yes Hx Falls: No - GASTROINTESTINAL Hx Gall Bladder Disease: Yes - GENITOURINARY/GYNECOLOGICAL Hx Genitourinary Disorders: Yes Hx Prostate Problems: Yes - PSYCHIATRIC Hx Substance Use: No - SURGICAL HISTORY Hx Cholecystectomy: Yes Hx Coronary Stent: Yes - ANESTHESIA Hx Anesthesia: Yes Hx Anesthesia Reactions: No Hx Malignant Hyperthermia: No Meds Allergies/Adverse Reactions: Allergies Allergy/AdvReac Type Severity Reaction Status Date / Time No Known Allergies Allergy Verified 05/11/14 18:16 - Medications Medications: Current Medications Aspirin (Ecotrin) 81 mg PO DAILY [facility] Last Admin: 11/26/17 10:11 Dose: 81 mg Betamethasone/Clotrimazole (Lotrisone) 0 gm TOP DAILY [facility] Last Admin: 11/26/17 10:15 Dose: Not Given Furosemide (Lasix) 20 mg IVP DAILY [facility] Last Admin: 11/26/17 10:09 Dose: 20 mg Heparin Sodium (Porcine) (Heparin) 5,000 units SC Q12 [facility] Last Admin: 11/26/17 10:08 Dose: 5,000 units Metronidazole (Flagyl) 250 mg in 50 mls @ 100 mls/hr IVPB Q8 [facility] PRN Reason: Protocol Stop: 11/28/17 22:01 Last Admin: 11/26/17 13:45 Dose: 100 mls/hr Meropenem 500 mg/ Sodium (Chloride) 100 mls @ 100 mls/hr IVPB Q8 [facility] PRN Reason: Protocol Last Admin: 11/26/17 14:24 Dose: 100 mls/hr Insulin Human Regular (Novolin R) 0 unit SC ACHS [facility] PRN Reason: Protocol Last Admin: 11/26/17 11:52 Dose: 3 units Metoprolol Tartrate (Lopressor) 25 mg PO BID [facility] Last Admin: 11/26/17 10:09 Dose: 25 mg Rosuvastatin Calcium (Crestor) 10 mg PO HS [facility] Last Admin: 11/25/17 21:18 Dose: 10 mg Results - Vital Signs Recent Vital Signs: Last Vital Signs Temp 97.8 F 11/26/17 07:46 Pulse 70 11/26/17 07:46 Resp 20 11/26/17 07:46 BP 135/89 11/26/17 10:09 Pulse Ox 96 11/26/17 07:46 - Labs Result Diagrams: 11/25/17 07:17 11/25/17 07:17 Labs: Laboratory Results - last 24 hr 11/25/17 11/25/17 11/26/17 16:07 21:14 07:27 POC Glucose (mg/dL) 129 H 159 H 116 H 11/26/17 11:11 POC Glucose (mg/dL) 227 H
--- NOTE | 2017-11-26 18:38 | US ---
PROCEDURE: Ultrasound of the Kidneys HISTORY: resistant uti with morganella r/o stones COMPARISON: None available. TECHNIQUE: Sonogram of the kidneys. FINDINGS: RIGHT KIDNEY: Measures: 10.6 x 4.7 x 5.2 cm. Upper pole cyst measuring 2.9 x 2.4 x 3.1 cm. Lower pole cyst measuring 2.9 x 2.2 x 2.8 cm. Normal in size, contour and echogenicity. No stone, solid mass lesion or hydronephrosis visualized. LEFT KIDNEY: Measures: 10.7 x 5.6 x 6.1 cm. Normal in size, contour and echogenicity. No stone, solid mass lesion or hydronephrosis visualized. OTHER FINDINGS: Prevoid urinary bladder volume measures 323 cc. Postvoid urinary bladder volume measures 178 cc. Ureteral jets were not visualized. IMPRESSION: Unremarkable renal sonogram. Right renal cysts. No nephrolithiasis. Post void residual volume of 178 cc.
--- NOTE | 2017-11-26 19:27 | CP.PCM.PN ---
Subjective - Date & Time of Evaluation Date of Evaluation: 11/26/17 Time of Evaluation: 19:27 - Subjective Subjective: Patient still having increasing leg swelling, feeling slightly weak. Urine output is less. He denies any chest pain. No shortness of breath On examination: Vital signs stable. Chest bilateral good air entry, regular heart sound. Nontender abdomen. Extremities bilateral pedal edema up to mid thigh notedAssessment and recommendation: 82-year-old male with multiple medical history hypertension aortic stenosis admitted to the hospital with decompensated systolic heart failure. Cellulitis. Urinary tract infection. On antibiotic. Appreciate infectious disease evaluation, podiatry evaluation, cardiology follow -up. Objective - Vital Signs/Intake and Output Vital Signs (last 24 hours): Temp Pulse Resp BP Pulse Ox 98.6 F 58 L 20 128/78 98 11/26/17 17:19 11/26/17 17:19 11/26/17 17:19 11/26/17 17:55 11/26/17 17:19 - Medications Medications: Current Medications Aspirin (Ecotrin) 81 mg PO DAILY [facility] Last Admin: 11/26/17 10:11 Dose: 81 mg Betamethasone/Clotrimazole (Lotrisone) 0 gm TOP DAILY [facility] Last Admin: 11/26/17 10:15 Dose: Not Given Furosemide (Lasix) 20 mg IVP DAILY [facility] Last Admin: 11/26/17 10:09 Dose: 20 mg Heparin Sodium (Porcine) (Heparin) 5,000 units SC Q12 [facility] Last Admin: 11/26/17 10:08 Dose: 5,000 units Metronidazole (Flagyl) 250 mg in 50 mls @ 100 mls/hr IVPB Q8 [facility] PRN Reason: Protocol Stop: 11/28/17 22:01 Last Admin: 11/26/17 13:45 Dose: 100 mls/hr Meropenem 500 mg/ Sodium (Chloride) 100 mls @ 100 mls/hr IVPB Q8 [facility] PRN Reason: Protocol Last Admin: 11/26/17 14:24 Dose: 100 mls/hr Insulin Human Regular (Novolin R) 0 unit SC ACHS [facility] PRN Reason: Protocol Last Admin: 11/26/17 11:52 Dose: 3 units Metoprolol Tartrate (Lopressor) 25 mg PO BID [facility] Last Admin: 11/26/17 17:55 Dose: 25 mg Rosuvastatin Calcium (Crestor) 10 mg PO HS [facility] Last Admin: 11/25/17 21:18 Dose: 10 mg - Labs Labs: 11/25/17 07:17 11/25/17 07:17
--- NOTE | 2017-11-26 23:25 | CP.PCM.PN ---
Subjective - Date & Time of Evaluation Date of Evaluation: 11/26/17 Time of Evaluation: 16:05 - Subjective Subjective: Patient seen and evaluated No cardiac events noted Review Of Systems Constitutional: Positive for: Fever (subjective ). Negative for: Chills Cardiovascular: Negative for: Chest Pain Respiratory: Negative for: Shortness of Breath Gastrointestinal: Negative for: Nausea, Vomiting, Abdominal Pain, Diarrhea Skin: Positive for: Rash (On bilateral legs and swelling) Neurological: Negative for: Weakness, Numbness Physical Exam - Physical Exam Appears: Non-toxic, No Acute Distress Skin: Rash (Erythematous spots on bilateral legs, some linear and some clustered. ) Head: Atraumatic, Normacephalic Eye(s): bilateral: Normal Inspection, PERRL, EOMI Nose: Normal, No Discharge Oral Mucosa: Moist Tongue: Normal Appearing, No Swelling Lips: Normal Appearing, No Swelling Throat: Normal, No Erythema, No Exudate, No Drooling, No Mass Neck: Supple Chest: Symmetrical, No Tenderness Cardiovascular: Rhythm Regular, Murmur (Harsh 3 out of 6 systolic murmur ) Respiratory: Normal Breath Sounds, No Decreased Breath Sounds, No Rales, No Rhonchi, No Wheezing Gastrointestinal/Abdominal: Soft, No Tenderness Extremity: No Calf Tenderness, Swelling (Bilateral; Top of right foot more erythematous and swollen) Neurological/Psych: Oriented x3 (Awake and alert), Normal Speech (Speaking full sentences), Other (No focal deficits ) Gait: Steady Objective - Vital Signs/Intake and Output Vital Signs (last 24 hours): Temp Pulse Resp BP Pulse Ox 98.6 F 58 L 20 128/78 98 11/26/17 17:19 11/26/17 17:19 11/26/17 17:19 11/26/17 17:55 11/26/17 17:19 - Medications Medications: Current Medications Aspirin (Ecotrin) 81 mg PO DAILY [facility] Last Admin: 11/26/17 10:11 Dose: 81 mg Betamethasone/Clotrimazole (Lotrisone) 0 gm TOP DAILY [facility] Last Admin: 11/26/17 10:15 Dose: Not Given Diphenhydramine HCl (Benadryl) 25 mg PO HS PRN PRN Reason: Restlessness Last Admin: 11/26/17 21:42 Dose: 25 mg Furosemide (Lasix) 20 mg IVP DAILY [facility] Last Admin: 11/26/17 10:09 Dose: 20 mg Heparin Sodium (Porcine) (Heparin) 5,000 units SC Q12 [facility] Last Admin: 11/26/17 21:08 Dose: 5,000 units Metronidazole (Flagyl) 250 mg in 50 mls @ 100 mls/hr IVPB Q8 [facility] PRN Reason: Protocol Stop: 11/28/17 22:01 Last Admin: 11/26/17 21:08 Dose: 100 mls/hr Meropenem 500 mg/ Sodium (Chloride) 100 mls @ 100 mls/hr IVPB Q8 [facility] PRN Reason: Protocol Last Admin: 11/26/17 14:24 Dose: 100 mls/hr Insulin Human Regular (Novolin R) 0 unit SC ACHS [facility] PRN Reason: Protocol Last Admin: 11/26/17 11:52 Dose: 3 units Metoprolol Tartrate (Lopressor) 25 mg PO BID [facility] Last Admin: 11/26/17 17:55 Dose: 25 mg Rosuvastatin Calcium (Crestor) 10 mg PO HS [facility] Last Admin: 11/26/17 21:08 Dose: 10 mg - Labs Labs: 11/25/17 07:17 11/25/17 07:17 Assessment and Plan - Assessment and Plan (Free Text) Assessment: 82-year-old male with a history of , hypertension, hyperlipidemia, CAD, status post a stent, now admitted with the high proBNP, and vascular congestion in the chest x-ray most likely heart failure, decompensated. Associate with the bilateral pedal edema Patient also has associated urinary tract infection, the organism is currently pending. We will start the patient on Lasix, diuretics, oxygen, cardiology evaluation, echocardiogram. Urinary tract infection, will start the patient on antibiotic. Closely monitor for culture. DVT GI prophylaxis. We will repeat x-ray in the morning. We will follow the patient
[2017-11-27] MEDS: metroNIDAZOLE IV 250mg/50 ml 250 MG/50 ML BAG IVPB SCH (05:07)
[2017-11-27] MEDS: Meropenem 500 MG in Sodium Chloride 0.9% 100 ML IVPB SCH ×3 (05:08→21:28)
--- NOTE | 2017-11-27 07:24 | CON ---
DATE: 11/27/2017 INFECTIOUS DISEASE CONSULT REQUESTING PHYSICIAN: Keely Ramirez MD Consult was requested for abnormal urine, other than this urine infection. HISTORY OF PRESENT ILLNESS: This patient is an 82-year-old male. He has a history of coronary artery disease, high cholesterol, hypercholesterolemia, hypertension, coronary artery disease. He had a stent placed in 2014. He also has a history of aortic stenosis. 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 He has also itching, redness, and edema and he has been feeling weak and tired. He also had fever when he came in, also was having cough with mucus production and palpitations off and on. He was admitted on 11/24/2017. I am asked to evaluate because the urine culture came back positive. He is also being seen by Dr. De Leon for his legs. PAST MEDICAL HISTORY: Significant as above for aortic stenosis, hypertension, hyperlipidemia, coronary artery disease, history of SD in the past. SURGICAL HISTORY: Significant for cholecystectomy and cardiac stent. FAMILY HISTORY: Noncontributory. He lives in the [facility]. He has no siblings. SOCIAL HISTORY: He denies any drinking, any alcohol, smoking, or any coffee. MEDICATIONS: His medications at home initially were metoprolol, simvastatin, Plavix, lisinopril, Flomax, isosorbide mononitrate. ALLERGIES: HE IS NOT ALLERGIC TO ANY MEDICINE. PAST MEDICAL HISTORY: Significant for congestive heart failure, high cholesterol, hypertension. REVIEW OF SYSTEMS: He was not willingly giving me any history and he is seen to be annoyed. I do not know what was bothering him, but he seems reluctant to give any history, so most of the history is taken from the chart. I asked him if he has any fever, he denied it. He denies any headaches. Denies any ear, nose, or throat infection at this time. Denies any chest pain, no shortness of breath. Denies any abdominal pain. He did complain of leg edema and having a rash there. He denied scratching at them. His nails were short, and he denied any history of diabetes. He denied any respiratory problems. He does suffer neurologically with dementia. HEENT, he wears glasses. No kidney issues. No kidney stones. No blood problems reported. Skin, he has been scratching, looks like, on lower extremities and had rash with scratch solares. He also suffers from arthritis, complains of knee pain. GI, he had a gallbladder surgery and he has prostate issues, he says, and urinary issues. He denied any substance abuse. He has had surgeries in the past and has had received anesthesia. MEDICATIONS: He was getting Rocephin before and today we changed it to meropenem 500 every 8 hours. He is on aspirin, Lotrisone cream, Lasix, heparin, meropenem, Lopressor. He is also on Flagyl, and he is on Crestor at the present time. PHYSICAL EXAMINATION: GENERAL: He is alert, awake, able to give answers but seem to be kind of upset with something. VITAL SIGNS: He has been afebrile mostly with T-max is 98.6 today, heart rate of 58, blood pressure 121/78, respirations are 20. HEENT: Head is atraumatic, normocephalic. Pupils are reacting to light. Tongue is moist. NECK: Supple. JVP is flat at this time. LUNGS: There were decreased breath sounds bilaterally. HEART: S1, S2 are regular. ABDOMEN: Flabby, nontender. No guarding, no rigidity present. EXTREMITIES: 2+ edema with scratch solares and focal rashes and abrasions. He had an Berry bandage tied on now as the route jumper has seen earlier than me. He does have scratch solares and they were going to follow, and he has some localized cellulitis because of that. LABORATORY DATA: Labs are noted, and he was moving both the extremities. Hematologically, his white count is 9, hemoglobin 12.6, hematocrit 39, platelet count is 237; this is from yesterday. Urine showed 3+ leukocytes, wbc 140, and I saw the creatinine, not able to pull it up, it was high. 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 It is sensitive to ertapenem and meropenem. ASSESSMENT AND PLAN: I have left him on meropenem 500 every 8. Also, bladder ultrasound was already done when I am seeing this, and it shows unremarkable renal sonogram, right renal cyst. No nephrolithiasis. Postvoid residue is 178, so there is not much of, looks like he is retaining some but he is okay. He has a lower pole cyst on the right side. Left side has no stones, no hydronephrosis. The kidneys are fine and there is no nephrolithiasis, so he just has urinary tract infection at this time. He may have prostate issues at this time and he is with bilateral leg edema, most likely related to his congestive heart failure issues, and I think Dr. Armando has been called in on consult, so we will see what he has to say. This patient may have congestive heart failure. He has aortic stenosis and coronary artery disease, and he has a urinary tract infection with Morganella, has cellulitis with scratch solares and with bilateral leg edema. Eros Geiger MD
[2017-11-27] MEDS: (Novolin R) Insulin Human Regular 100 units/ml vial SC SCH ×5 (08:00→21:31)
[2017-11-27 08:09] LABS: BASO # 0.1 K/uL (0.0-0.2); BASO % 0.7 % (0.0-2.0); EOS # 0.2 K/uL (0.0-0.7); HEMOGLOBIN 10.9 g/dL (12.0-18.0); LYMPH # 1.1 K/uL (1.0-4.3); LYMPH % 11.7 % (20.0-40.0); MEAN CELL VOLUME 91.8 fL (80.0-94.0); MEAN CORPUSCULAR HEMOGLOBIN 30.4 pg (27.0-31.0); MEAN CORPUSCULAR HGB CONC 33.1 g/dL (33.0-37.0); MEAN PLATELET VOLUME 7.5 fL (7.2-11.7); MONO % 10.1 % (0.0-10.0); NEUT # 7.2 K/uL (1.8-7.0); NEUT % 75.5 % (50.0-75.0); RBC 3.58 Mil/uL (4.40-5.90); RED CELL DISTRIBUTION WIDTH 17.8 % (11.5-14.5); WHITE BLOOD COUNT 9.6 K/uL (4.8-10.8)
[2017-11-27 08:29] LABS: ALB/GLOB RATIO 1.1 (1.0-2.1); ALBUMIN 3.5 g/dL (3.5-5.0); ALT/SGPT 31 U/L (21-72); AST/SGOT 24 U/L (17-59); BLOOD UREA NITROGEN 43 mg/dL (9-20); CALCIUM 8.6 mg/dl (8.6-10.4); GFR AFRICAN-AMERICAN > 60; GFR NON-AFRICAN AMERICAN > 60
[2017-11-27 08:36] LABS: BLOOD UREA NITROGEN 43 mg/dL (9-20); CALCIUM 8.4 mg/dl (8.6-10.4); GFR AFRICAN-AMERICAN > 60; GFR NON-AFRICAN AMERICAN > 60
[2017-11-27] MEDS: Clotrimazole/Betamethasone Cream(15 gm) TOP SCH (09:36)
--- NOTE | 2017-11-27 10:22 | CP.PCM.PN ---
Subjective - Date & Time of Evaluation Date of Evaluation: 11/27/17 Time of Evaluation: 10:18 - Subjective Subjective: 82 Y/O male patient with bilateral leg rash and cellulites seen and evaluated at the bed side. Patient sets in bed comfortably with no acute distress. Patient denies any new pedal complain today. Dressing looks D/C/I. Patient denies any acute events. Patients denies pain or itchiness despite that he is having scratch solares all over his legs. Patient denies any F/N/V/C or SOB today. Objective - Vital Signs/Intake and Output Vital Signs (last 24 hours): Temp Pulse Resp BP Pulse Ox 98.7 F 82 20 125/67 97 11/27/17 07:47 11/27/17 07:47 11/27/17 07:47 11/27/17 09:35 11/27/17 07:47 Intake and Output: 11/27/17 11/27/17 06:59 18:59 Intake Total 210 Balance 210 - Medications Medications: Current Medications Aspirin (Ecotrin) 81 mg PO DAILY [facility] Last Admin: 11/27/17 09:36 Dose: 81 mg Betamethasone/Clotrimazole (Lotrisone) 0 gm TOP DAILY [facility] Last Admin: 11/27/17 09:36 Dose: Not Given Diphenhydramine HCl (Benadryl) 25 mg PO HS PRN PRN Reason: Restlessness Last Admin: 11/26/17 21:42 Dose: 25 mg Furosemide (Lasix) 40 mg IVP DAILY [facility] Last Admin: 11/27/17 09:34 Dose: 40 mg Heparin Sodium (Porcine) (Heparin) 5,000 units SC Q12 [facility] Last Admin: 11/27/17 09:32 Dose: 5,000 units Meropenem 500 mg/ Sodium (Chloride) 100 mls @ 100 mls/hr IVPB Q8 [facility] PRN Reason: Protocol Last Admin: 11/27/17 05:08 Dose: 100 mls/hr Insulin Human Regular (Novolin R) 0 unit SC ACHS [facility] PRN Reason: Protocol Last Admin: 11/27/17 08:00 Dose: Not Given Metoprolol Tartrate (Lopressor) 25 mg PO BID [facility] Last Admin: 11/27/17 09:35 Dose: 25 mg Rosuvastatin Calcium (Crestor) 10 mg PO HS [facility] Last Admin: 11/26/17 21:08 Dose: 10 mg - Labs Labs: 11/27/17 08:02 11/27/17 08:02 - Constitutional Appears: Well, Non-toxic, No Acute Distress - Head Exam Head Exam: ATRAUMATIC, NORMOCEPHALIC - Extremities Exam Additional comments: Bilateral Lower Extremity Examination VASC: pedal pulses non-palpable bilaterally, TG warm to warm, +2 pitting edema noted bilaterally, CFT less than 3 second X 10 NEURO: grossly intact DERM: multiple focal rashes noted bilaterally to anterior aspect of right leg and anterior and medial aspects of the left leg, superficial abrasions noted bilaterally consistent with scratch solares, no drainage, no malodor MSK: no pain on palpation to lower extremity joints, decreased passive ROM to joints distal to ankle b/l - Neurological Exam Neurological Exam: Alert, Awake, Oriented x3 - Psychiatric Exam Psychiatric exam: Normal Affect, Normal Mood Assessment and Plan - Assessment and Plan (Free Text) Assessment: 82 Y/O male patient with bilateral leg rash and cellulitis. Plan: Patient seen and evaluated at the bedside. Discussed in detail with Dr. Jones Labs and vitals: Afebrile , WBCs Bilateral lower extremity: Lotrisone applied and legs wrapped with TREVA Bandage Continue the IV antibiotics Patient will be followed up in house by podiatry.
--- NOTE | 2017-11-27 19:38 | CP.PCM.PN ---
Subjective - Date & Time of Evaluation Date of Evaluation: 11/27/17 Time of Evaluation: 03:15 - Subjective Subjective: dictated Objective - Vital Signs/Intake and Output Vital Signs (last 24 hours): Temp Pulse Resp BP Pulse Ox 98.0 F 75 20 145/68 95 11/27/17 16:00 11/27/17 16:00 11/27/17 16:00 11/27/17 17:41 11/27/17 16:00 Intake and Output: 11/27/17 11/28/17 18:59 06:59 Intake Total 350 Balance 350 - Medications Medications: Current Medications Aspirin (Ecotrin) 81 mg PO DAILY [facility] Last Admin: 11/27/17 09:36 Dose: 81 mg Betamethasone/Clotrimazole (Lotrisone) 0 gm TOP DAILY [facility] Last Admin: 11/27/17 09:36 Dose: Not Given Diphenhydramine HCl (Benadryl) 25 mg PO HS PRN PRN Reason: Restlessness Last Admin: 11/26/17 21:42 Dose: 25 mg Furosemide (Lasix) 40 mg IVP DAILY [facility] Last Admin: 11/27/17 09:34 Dose: 40 mg Heparin Sodium (Porcine) (Heparin) 5,000 units SC Q12 [facility] Last Admin: 11/27/17 09:32 Dose: 5,000 units Meropenem 500 mg/ Sodium (Chloride) 100 mls @ 100 mls/hr IVPB Q8 [facility] PRN Reason: Protocol Last Admin: 11/27/17 14:57 Dose: 100 mls/hr Insulin Human Regular (Novolin R) 0 unit SC ACHS [facility] PRN Reason: Protocol Last Admin: 11/27/17 17:48 Dose: 2 units Metoprolol Tartrate (Lopressor) 25 mg PO BID [facility] Last Admin: 11/27/17 17:41 Dose: 25 mg Rosuvastatin Calcium (Crestor) 10 mg PO HS [facility] Last Admin: 11/26/17 21:08 Dose: 10 mg Tamsulosin HCl (Flomax) 0.4 mg PO DAILY [facility] - Labs Labs: 11/27/17 08:02 11/27/17 08:02
--- NOTE | 2017-11-27 21:59 | CP.PCM.PN ---
Subjective - Date & Time of Evaluation Date of Evaluation: 11/27/17 Time of Evaluation: 21:57 - Subjective Subjective: Patient is still having increasing leg swelling. Redness is still noted. Urine output is slightly on the low side. Discomfort present upon urination. He denies any nausea. Eating well. Denies any diarrhea. On examination: Vital signs are stable. Blood pressure slightly on the low side. He received Lasix 40 mg this morning. Urine output is minimal. Chest good air entry bilaterally regular heart sound. Abdominal tenderness negative. Bilateral pedal edema, up to mid thigh noted Labs today reviewed Nonspecific. Elevation of the BUN noted Creatinine is similar Urine culture is positive for Morganella Morgagni Seen by infectious disease. Assessment and recommendation: 82-year-old male with a history of hypertension CAD hypercholesterol severe aortic stenosis. Admitted with decompensated systolic heart failure. Also urinary tract infection. And pedal edema. Anasarca. Cellulitis. We will continue the current treatment. Physical therapy. We will increase the diuretics. Monitor the blood pressure. We will follow the patient Objective - Vital Signs/Intake and Output Vital Signs (last 24 hours): Temp Pulse Resp BP Pulse Ox 98.6 F 59 L 20 97/54 L 97 11/27/17 21:35 11/27/17 21:35 11/27/17 21:35 11/27/17 21:35 11/27/17 21:35 Intake and Output: 11/27/1718 18:59 06:59 Intake Total 350 500 Output Total 200 Balance 350 300 - Medications Medications: Current Medications Aspirin (Ecotrin) 81 mg PO DAILY [facility] Last Admin: 11/27/17 09:36 Dose: 81 mg Betamethasone/Clotrimazole (Lotrisone) 0 gm TOP DAILY [facility] Last Admin: 11/27/17 09:36 Dose: Not Given Diphenhydramine HCl (Benadryl) 25 mg PO HS PRN PRN Reason: Restlessness Last Admin: 11/27/17 21:24 Dose: 25 mg Furosemide (Lasix) 40 mg IVP DAILY [facility] Last Admin: 11/27/17 09:34 Dose: 40 mg Heparin Sodium (Porcine) (Heparin) 5,000 units SC Q12 [facility] Last Admin: 11/27/17 21:18 Dose: 5,000 units Meropenem 500 mg/ Sodium (Chloride) 100 mls @ 100 mls/hr IVPB Q8 [facility] PRN Reason: Protocol Last Admin: 11/27/17 21:28 Dose: 100 mls/hr Insulin Human Regular (Novolin R) 0 unit SC ACHS [facility] PRN Reason: Protocol Last Admin: 11/27/17 21:31 Dose: Not Given Metoprolol Tartrate (Lopressor) 25 mg PO BID [facility] Last Admin: 11/27/17 17:41 Dose: 25 mg Rosuvastatin Calcium (Crestor) 10 mg PO HS [facility] Last Admin: 11/27/17 21:17 Dose: 10 mg Tamsulosin HCl (Flomax) 0.4 mg PO DAILY [facility] Last Admin: 11/27/17 20:01 Dose: 0.4 mg - Labs Labs: 11/27/17 08:02 11/27/17 08:02
--- NOTE | 2017-11-27 23:11 | CP.PCM.PN ---
Subjective - Date & Time of Evaluation Date of Evaluation: 11/27/17 Time of Evaluation: 12:05 - Subjective Subjective: Patient seen and evaluated Denies chest pain and dyspnea Review Of Systems Constitutional: Positive for: Fever (subjective ). Negative for: Chills Cardiovascular: Negative for: Chest Pain Respiratory: Negative for: Shortness of Breath Gastrointestinal: Negative for: Nausea, Vomiting, Abdominal Pain, Diarrhea Skin: Positive for: Rash (On bilateral legs and swelling) Neurological: Negative for: Weakness, Numbness Physical Exam - Physical Exam Appears: Non-toxic, No Acute Distress Skin: Rash (Erythematous spots on bilateral legs, some linear and some clustered. ) Head: Atraumatic, Normacephalic Eye(s): bilateral: Normal Inspection, PERRL, EOMI Nose: Normal, No Discharge Oral Mucosa: Moist Tongue: Normal Appearing, No Swelling Lips: Normal Appearing, No Swelling Throat: Normal, No Erythema, No Exudate, No Drooling, No Mass Neck: Supple Chest: Symmetrical, No Tenderness Cardiovascular: Rhythm Regular, Murmur (Harsh 3 out of 6 systolic murmur ) Respiratory: Normal Breath Sounds, No Decreased Breath Sounds, No Rales, No Rhonchi, No Wheezing Gastrointestinal/Abdominal: Soft, No Tenderness Extremity: No Calf Tenderness, Swelling (Bilateral; Top of right foot more erythematous and swollen) Neurological/Psych: Oriented x3 (Awake and alert), Normal Speech (Speaking full sentences), Other (No focal deficits ) Gait: Steady Objective - Vital Signs/Intake and Output Vital Signs (last 24 hours): Temp Pulse Resp BP Pulse Ox 98.6 F 59 L 20 108/64 97 11/27/17 21:35 11/27/17 21:35 11/27/17 21:35 11/27/17 22:30 11/27/17 21:35 Intake and Output: 11/27/17 11/28/17 18:59 06:59 Intake Total 350 500 Output Total 200 Balance 350 300 - Medications Medications: Current Medications Aspirin (Ecotrin) 81 mg PO DAILY [facility] Last Admin: 11/27/17 09:36 Dose: 81 mg Betamethasone/Clotrimazole (Lotrisone) 0 gm TOP DAILY [facility] Last Admin: 11/27/17 09:36 Dose: Not Given Diphenhydramine HCl (Benadryl) 25 mg PO HS PRN PRN Reason: Restlessness Last Admin: 11/27/17 21:24 Dose: 25 mg Furosemide (Lasix) 40 mg IVP DAILY [facility] Last Admin: 11/27/17 09:34 Dose: 40 mg Heparin Sodium (Porcine) (Heparin) 5,000 units SC Q12 [facility] Last Admin: 11/27/17 21:18 Dose: 5,000 units Meropenem 500 mg/ Sodium (Chloride) 100 mls @ 100 mls/hr IVPB Q8 [facility] PRN Reason: Protocol Last Admin: 11/27/17 21:28 Dose: 100 mls/hr Insulin Human Regular (Novolin R) 0 unit SC ACHS [facility] PRN Reason: Protocol Last Admin: 11/27/17 21:31 Dose: Not Given Metolazone (Zaroxolyn) 2.5 mg PO DAILY [facility] Stop: 12/01/17 10:01 Metoprolol Tartrate (Lopressor) 25 mg PO BID [facility] Last Admin: 11/27/17 17:41 Dose: 25 mg Rosuvastatin Calcium (Crestor) 10 mg PO HS [facility] Last Admin: 11/27/17 21:17 Dose: 10 mg Tamsulosin HCl (Flomax) 0.4 mg PO DAILY [facility] Last Admin: 11/27/17 20:01 Dose: 0.4 mg - Labs Labs: 11/27/17 08:02 11/27/17 08:02 Assessment and Plan - Assessment and Plan (Free Text) Assessment: 82-year-old male with a history of , hypertension, hyperlipidemia, CAD, status post a stent, now admitted with the high proBNP, and vascular congestion in the chest x-ray most likely heart failure, decompensated. Associate with the bilateral pedal edema Patient also has associated urinary tract infection, the organism is currently pending. We will start the patient on Lasix, diuretics, oxygen, cardiology evaluation, echocardiogram. Urinary tract infection, will start the patient on antibiotic. Closely monitor for culture. DVT GI prophylaxis. We will repeat x-ray in the morning. We will follow the patient
--- NOTE | 2017-11-27 23:28 | PN ---
DATE: 11/27/2017 INFECTIOUS DISEASE FOLLOW UP SUBJECTIVE: The patient appears withdrawn. He was looking to the other side and did want to communicate. He is awake however and I was not able to get much out of him. PHYSICAL EXAMINATION: VITAL SIGNS: T-max is 98, pulse 75, blood pressure 126/73, respirations are 20. HEENT: Head is atraumatic and normocephalic. NECK: Supple. LUNGS: Clear. No crackles or rales present at this time. HEART: S1 and S2 are present. ABDOMEN: Soft, flabby, nontender. EXTREMITIES: Remain with bilateral edema and scratch solares and Podiatry is following with the other scratch solares. LABORATORY DATA: Urine had Morganella morganii we have switched the thing to meropenem. The only thing he did was he was feeling better. IMPRESSION: He has urinary tract infection, he has congestive heart failure with bilateral leg edema and is being evaluated and to continue meropenem to complete 5 days of treatment. We will follow. Eros Geiger MD
[2017-11-28] MEDS: Meropenem 500 MG in Sodium Chloride 0.9% 100 ML IVPB SCH ×3 (06:01→21:17)
[2017-11-28 06:45] LABS: ALB/GLOB RATIO 1.1 (1.0-2.1); ALBUMIN 3.2 g/dL (3.5-5.0); ALT/SGPT 35 U/L (21-72); AST/SGOT 21 U/L (17-59); BLOOD UREA NITROGEN 41 mg/dL (9-20); CALCIUM 8.3 mg/dl (8.6-10.4); GFR AFRICAN-AMERICAN > 60; GFR NON-AFRICAN AMERICAN > 60
[2017-11-28] MEDS: (Novolin R) Insulin Human Regular 100 units/ml vial SC SCH ×4 (07:30→21:18)
[2017-11-28] MEDS ORDERED: Pneumococcal 23-Valent Vaccine IM ONE (10:00)
[2017-11-28] MEDS: metOLazone 2.5 MG TAB PO SCH (11:00)
[2017-11-28] MEDS: Clotrimazole/Betamethasone Cream(15 gm) TOP SCH (13:51)
--- NOTE | 2017-11-28 14:59 | CP.PCM.PN ---
Subjective - Date & Time of Evaluation Date of Evaluation: 11/28/17 Time of Evaluation: 14:56 - Subjective Subjective: Podiatry progress note for Dr. Jones, 82 Y/O male patient with bilateral leg rash and cellulitis seen and evaluated at the bed side. Patient was seen in bed comfortably with no acute distress. Patient denies any new pedal complaint today. Dress is dry, clean, and intact. Patient denies any overnight acute events. Patient states he is unable to void and has told his medical team about it. Patient denies any F/N/V/C or SOB today. Objective - Vital Signs/Intake and Output Vital Signs (last 24 hours): Temp Pulse Resp BP Pulse Ox 98.3 F 76 20 147/71 96 11/28/17 08:00 11/28/17 08:00 11/28/17 08:00 11/28/17 11:00 11/28/17 08:00 Intake and Output: 11/28/17 11/28/17 06:59 18:59 Intake Total 720 Output Total 200 Balance 520 - Medications Medications: Current Medications Aspirin (Ecotrin) 81 mg PO DAILY [facility] Last Admin: 11/28/17 12:21 Dose: Not Given Betamethasone/Clotrimazole (Lotrisone) 0 gm TOP DAILY [facility] Last Admin: 11/28/17 13:51 Dose: Not Given Diphenhydramine HCl (Benadryl) 25 mg PO HS PRN PRN Reason: Restlessness Last Admin: 11/27/17 21:24 Dose: 25 mg Furosemide (Lasix) 40 mg IVP DAILY [facility] Last Admin: 11/28/17 11:00 Dose: 40 mg Heparin Sodium (Porcine) (Heparin) 5,000 units SC Q12 [facility] Last Admin: 11/28/17 12:20 Dose: Not Given Meropenem 500 mg/ Sodium (Chloride) 100 mls @ 100 mls/hr IVPB Q8 [facility] PRN Reason: Protocol Last Admin: 11/28/17 14:26 Dose: 100 mls/hr Insulin Human Regular (Novolin R) 0 unit SC ACHS [facility] PRN Reason: Protocol Last Admin: 11/28/17 12:30 Dose: Not Given Metolazone (Zaroxolyn) 2.5 mg PO DAILY [facility] Stop: 12/01/17 10:01 Last Admin: 11/28/17 11:00 Dose: 2.5 mg Metoprolol Tartrate (Lopressor) 25 mg PO BID [facility] Last Admin: 11/28/17 11:00 Dose: 25 mg Rosuvastatin Calcium (Crestor) 10 mg PO HS [facility] Last Admin: 11/27/17 21:17 Dose: 10 mg Tamsulosin HCl (Flomax) 0.4 mg PO DAILY [facility] Last Admin: 11/28/17 11:00 Dose: 0.4 mg - Labs Labs: 11/27/17 08:02 11/28/17 06:25 - Constitutional Appears: Well, Non-toxic, No Acute Distress - Head Exam Head Exam: ATRAUMATIC, NORMOCEPHALIC - Extremities Exam Additional comments: Bilateral Lower Extremity Examination VASC: pedal pulses non-palpable bilaterally secondary to edema, TG warm to warm , +3 pitting edema noted bilaterally, CFT less than 3 second X 10 NEURO: grossly intact DERM: multiple, erythematous focal rashes noted bilaterally to anterior aspect of right leg and anterior and medial aspects of the left leg, superficial abrasions noted bilaterally consistent with scratch solares, no drainage, no malodor, MSK: no pain on palpation to lower extremity joints, decreased passive ROM to joints distal to ankle b/l - Neurological Exam Neurological Exam: Alert, Awake, Oriented x3 Assessment and Plan - Assessment and Plan (Free Text) Assessment: 82 Y/O male patient with bilateral leg rash and cellulitis. Plan: Patient seen and evaluated at the bedside. Discussed in detail with Dr. Jones Labs and vitals: Afebrile Bilateral lower extremity: Legs dressed with gauze and kerlix Continue the IV antibiotics Podiatry will follow while in house
--- NOTE | 2017-11-28 17:17 | RAD ---
HISTORY: chf COMPARISON: 11/23/2017 FINDINGS: LUNGS: Again seen is moderate pulmonary venous congestion. There is linear scarring in the right mid lung. PLEURA: Small right and moderate left pleural effusions, no pneumothorax apparent. CARDIOVASCULAR: There is persistent severe cardiomegaly and prominent central vasculature. OSSEOUS STRUCTURES: No significant abnormalities. VISUALIZED UPPER ABDOMEN: Normal. OTHER FINDINGS: None. IMPRESSION: No significant interval change in congestive heart failure with small right and moderate left pleural effusions.
[2017-11-28 17:29] LABS: URINE BILIRUBIN NEGATIVE (NEGATIVE); URINE BLOOD NEGATIVE (NEGATIVE); URINE CLARITY Clear (Clear); URINE COLOR Colorless (YELLOW); URINE GLUCOSE (UA) NORMAL (Normal); URINE LEUKOCYTE ESTERASE NEG Leu/uL (Negative); URINE PROTEIN NEGATIVE (NEGATIVE); URINE UROBILINOGEN NORMAL mg/dL (0.2-1.0)
--- NOTE | 2017-11-28 19:32 | CP.PCM.PN ---
Subjective - Date & Time of Evaluation Date of Evaluation: 11/28/17 Time of Evaluation: 19:31 - Subjective Subjective: Patient today making much urine. He is feeling much better today. The leg swelling is slightly improving. The redness in the legs is still noted. He denies any chest pain. He is eating well. Mostly he is ambulating with walker On examination: Vital signs are stable. Blood pressure stable. Chest good air entry bilaterally regular heart sound. Nontender abdomen. Pedal edema bilaterally noted. The redness is improving. Patient is today labs reviewed Nonspecific. Slight elevation of BUN noted Currently he is on meropenem, seen by infectious disease also hematology oncology consultant Assessment/recommendation: 82-year-old male with a history of hypertension, hypercholesterolemia, severe aortic stenosis admitted with the fluid overload status, possible decompensated systolic heart failure. Urinary tract infection. Anasarca. Pedal edema Improving at this time. Metolazone added yesterday, will monitor the electrolytes tomorrow. Will follow the patient Patient will be covered by hospitalist from tomorrow, and possible discharge plan on Thursday Objective - Vital Signs/Intake and Output Vital Signs (last 24 hours): Temp Pulse Resp BP Pulse Ox 97.9 F 62 20 125/76 96 11/28/17 16:57 11/28/17 16:57 11/28/17 16:57 11/28/17 17:08 11/28/17 16:57 - Medications Medications: Current Medications Aspirin (Ecotrin) 81 mg PO DAILY [facility] Last Admin: 11/28/17 12:21 Dose: Not Given Betamethasone/Clotrimazole (Lotrisone) 0 gm TOP DAILY [facility] Last Admin: 11/28/17 13:51 Dose: Not Given Diphenhydramine HCl (Benadryl) 25 mg PO HS PRN PRN Reason: Restlessness Last Admin: 11/27/17 21:24 Dose: 25 mg Furosemide (Lasix) 40 mg IVP DAILY [facility] Last Admin: 11/28/17 11:00 Dose: 40 mg Heparin Sodium (Porcine) (Heparin) 5,000 units SC Q12 [facility] Last Admin: 11/28/17 12:20 Dose: Not Given Meropenem 500 mg/ Sodium (Chloride) 100 mls @ 100 mls/hr IVPB Q8 [facility] PRN Reason: Protocol Last Admin: 11/28/17 14:26 Dose: 100 mls/hr Insulin Human Regular (Novolin R) 0 unit SC ACHS [facility] PRN Reason: Protocol Last Admin: 11/28/17 12:30 Dose: Not Given Metolazone (Zaroxolyn) 2.5 mg PO DAILY [facility] Stop: 12/01/17 10:01 Last Admin: 11/28/17 11:00 Dose: 2.5 mg Metoprolol Tartrate (Lopressor) 25 mg PO BID [facility] Last Admin: 11/28/17 17:08 Dose: 25 mg Rosuvastatin Calcium (Crestor) 10 mg PO HS [facility] Last Admin: 11/27/17 21:17 Dose: 10 mg Tamsulosin HCl (Flomax) 0.4 mg PO DAILY [facility] Last Admin: 11/28/17 11:00 Dose: 0.4 mg - Labs Labs: 11/27/17 08:02 11/28/17 06:25
--- NOTE | 2017-11-28 21:26 | PN ---
DATE: 11/28/2017 SUBJECTIVE: The patient was awake and alert. He was sitting in the chair. Today, he was little receptive as he focused his eyes and listens. He states he is feeling better. PHYSICAL EXAMINATION: VITAL SIGNS: T-max is 98.3, pulse 76, blood pressure 116/69, respirations are 20. HEENT: Head is atraumatic and normocephalic. NECK: Supple. LUNGS: Clear. Decreased breath sounds on both bases. HEART: S1, S2 are regular. ABDOMEN: Soft. Nontender. EXTREMITIES: Have scratch solares and still has bilateral lower leg swellings and he is having scratch solares and he has TREVA bandages. LABORATORY DATA: At this time, he had no new labs today. ASSESSMENT AND PLAN: He is on meropenem, which we were giving for the last 2 days, so today is the third day. We will repeat the urine culture tomorrow and will continue meropenem for now for the resistant urinary tract infection that he has. He has bilateral leg swelling and he has probably congestive heart failure. He is being evaluated by the engineer station mainline. Eros Geiger MD
--- NOTE | 2017-11-28 23:02 | CP.PCM.PN ---
Subjective - Date & Time of Evaluation Date of Evaluation: 11/28/17 Time of Evaluation: 19:15 - Subjective Subjective: Patient seen and evaluated Denies chest pain and dyspnea Review Of Systems Constitutional: Positive for: Fever (subjective ). Negative for: Chills Cardiovascular: Negative for: Chest Pain Respiratory: Negative for: Shortness of Breath Gastrointestinal: Negative for: Nausea, Vomiting, Abdominal Pain, Diarrhea Skin: Positive for: Rash (On bilateral legs and swelling) Neurological: Negative for: Weakness, Numbness Physical Exam - Physical Exam Appears: Non-toxic, No Acute Distress Skin: Rash (Erythematous spots on bilateral legs, some linear and some clustered. ) Head: Atraumatic, Normacephalic Eye(s): bilateral: Normal Inspection, PERRL, EOMI Nose: Normal, No Discharge Oral Mucosa: Moist Tongue: Normal Appearing, No Swelling Lips: Normal Appearing, No Swelling Throat: Normal, No Erythema, No Exudate, No Drooling, No Mass Neck: Supple Chest: Symmetrical, No Tenderness Cardiovascular: Rhythm Regular, Murmur (Harsh 3 out of 6 systolic murmur ) Respiratory: Normal Breath Sounds, No Decreased Breath Sounds, No Rales, No Rhonchi, No Wheezing Gastrointestinal/Abdominal: Soft, No Tenderness Extremity: No Calf Tenderness, Swelling (Bilateral; Top of right foot more erythematous and swollen) Neurological/Psych: Oriented x3 (Awake and alert), Normal Speech (Speaking full sentences), Other (No focal deficits ) Gait: Steady Objective - Vital Signs/Intake and Output Vital Signs (last 24 hours): Temp Pulse Resp BP Pulse Ox 97.9 F 62 20 125/76 96 11/28/17 16:57 11/28/17 16:57 11/28/17 16:57 11/28/17 17:08 11/28/17 16:57 - Medications Medications: Current Medications Aspirin (Ecotrin) 81 mg PO DAILY [facility] Last Admin: 11/28/17 12:21 Dose: Not Given Betamethasone/Clotrimazole (Lotrisone) 0 gm TOP DAILY [facility] Last Admin: 11/28/17 13:51 Dose: Not Given Diphenhydramine HCl (Benadryl) 25 mg PO HS PRN PRN Reason: Restlessness Last Admin: 11/28/17 22:19 Dose: 25 mg Furosemide (Lasix) 40 mg IVP DAILY [facility] Last Admin: 11/28/17 11:00 Dose: 40 mg Heparin Sodium (Porcine) (Heparin) 5,000 units SC Q12 [facility] Last Admin: 11/28/17 21:15 Dose: 5,000 units Meropenem 500 mg/ Sodium (Chloride) 100 mls @ 100 mls/hr IVPB Q8 [facility] PRN Reason: Protocol Last Admin: 11/28/17 21:17 Dose: 100 mls/hr Insulin Human Regular (Novolin R) 0 unit SC ACHS [facility] PRN Reason: Protocol Last Admin: 11/28/17 21:18 Dose: Not Given Metolazone (Zaroxolyn) 2.5 mg PO DAILY [facility] Stop: 12/01/17 10:01 Last Admin: 11/28/17 11:00 Dose: 2.5 mg Metoprolol Tartrate (Lopressor) 25 mg PO BID [facility] Last Admin: 11/28/17 17:08 Dose: 25 mg Rosuvastatin Calcium (Crestor) 10 mg PO HS [facility] Last Admin: 11/28/17 21:15 Dose: 10 mg Tamsulosin HCl (Flomax) 0.4 mg PO DAILY [facility] Last Admin: 11/28/17 11:00 Dose: 0.4 mg - Labs Labs: 11/27/17 08:02 11/28/17 06:25 Assessment and Plan - Assessment and Plan (Free Text) Assessment: 82-year-old male with a history of , hypertension, hyperlipidemia, CAD, status post a stent, now admitted with the high proBNP, and vascular congestion in the chest x-ray most likely heart failure, decompensated. Associate with the bilateral pedal edema Patient also has associated urinary tract infection, the organism is currently pending. We will start the patient on Lasix, diuretics, oxygen, cardiology evaluation, echocardiogram. Urinary tract infection, will start the patient on antibiotic. Closely monitor for culture. DVT GI prophylaxis.
[2017-11-29] MEDS: Meropenem 500 MG in Sodium Chloride 0.9% 100 ML IVPB SCH ×2 (05:31→21:13)
[2017-11-29] MEDS: (Novolin R) Insulin Human Regular 100 units/ml vial SC SCH ×4 (07:40→21:41)
--- NOTE | 2017-11-29 08:56 | CP.PCM.PN ---
Subjective - Date & Time of Evaluation Date of Evaluation: 11/29/17 Time of Evaluation: 08:52 - Subjective Subjective: Podiatry progress note for Dr. Jones, 82 y/o male patient with bilateral leg rash and cellulitis seen and evaluated at the bed side. Patient is AAOx3. Patient was seen in bed comfortably with no acute distress. Patient denies any new pedal complaints today. Dressing is dry, clean, and intact, however patient states they had to be changed because they became saturated and fell off during the night. Patient denies any overnight acute events. Patient states he is having difficulty voiding, and states only a few drops come out at a time. Patient denies any F/N/V/C or SOB today. Objective - Vital Signs/Intake and Output Vital Signs (last 24 hours): Temp Pulse Resp BP Pulse Ox 98.2 F 78 20 121/64 96 11/28/17 23:42 11/28/17 23:42 11/28/17 23:42 11/28/17 23:42 11/28/17 23:42 - Medications Medications: Current Medications Aspirin (Ecotrin) 81 mg PO DAILY [facility] Last Admin: 11/28/17 12:21 Dose: Not Given Betamethasone/Clotrimazole (Lotrisone) 0 gm TOP DAILY [facility] Last Admin: 11/28/17 13:51 Dose: Not Given Diphenhydramine HCl (Benadryl) 25 mg PO HS PRN PRN Reason: Restlessness Last Admin: 11/28/17 22:19 Dose: 25 mg Furosemide (Lasix) 40 mg IVP DAILY [facility] Last Admin: 11/28/17 11:00 Dose: 40 mg Heparin Sodium (Porcine) (Heparin) 5,000 units SC Q12 [facility] Last Admin: 11/28/17 21:15 Dose: 5,000 units Meropenem 500 mg/ Sodium (Chloride) 100 mls @ 100 mls/hr IVPB Q8 [facility] PRN Reason: Protocol Last Admin: 11/29/17 05:31 Dose: 100 mls/hr Insulin Human Regular (Novolin R) 0 unit SC ACHS [facility] PRN Reason: Protocol Last Admin: 11/29/17 07:40 Dose: Not Given Metolazone (Zaroxolyn) 2.5 mg PO DAILY [facility] Stop: 12/01/17 10:01 Last Admin: 11/28/17 11:00 Dose: 2.5 mg Metoprolol Tartrate (Lopressor) 25 mg PO BID [facility] Last Admin: 11/28/17 17:08 Dose: 25 mg Rosuvastatin Calcium (Crestor) 10 mg PO HS [facility] Last Admin: 11/28/17 21:15 Dose: 10 mg Tamsulosin HCl (Flomax) 0.4 mg PO DAILY [facility] Last Admin: 11/28/17 11:00 Dose: 0.4 mg - Labs Labs: 11/27/17 08:02 11/28/17 06:25 - Constitutional Appears: Well, Non-toxic, No Acute Distress - Head Exam Head Exam: ATRAUMATIC, NORMOCEPHALIC - Extremities Exam Additional comments: Bilateral Lower Extremity Examination VASC: pedal pulses non-palpable bilaterally secondary to edema, TG warm to warm , improving +2 pitting edema noted bilaterally, CFT less than 3 second X 10 NEURO: grossly intact DERM: multiple, erythematous focal rashes noted bilaterally to anterior aspect of right leg and anterior and medial aspects of the left leg, superficial abrasions noted bilaterally consistent with scratch solares, no drainage, no malodor, MSK: no pain on palpation to lower extremity joints, decreased passive ROM to joints distal to ankle b/l - Neurological Exam Neurological Exam: Alert, Awake, Oriented x3 - Psychiatric Exam Psychiatric exam: Normal Affect, Normal Mood Assessment and Plan - Assessment and Plan (Free Text) Assessment: 82 y/o male patient with bilateral leg rash and cellulitis seen and evaluated at the bedside. Plan: Patient seen and evaluated at the bedside Patient plan discussed with attending, Dr. Jones Charts, labs and vitals reviewed- WBC 9.6 (11/27/17) Patient lower extremities dressed with gauze, ABD and kerlix to avoid compression Continue IV Abx Podiatry will continue to follow patient while in-house
[2017-11-29 09:34] LABS: BASO # 0.1 K/uL (0.0-0.2); BASO % 1.3 % (0.0-2.0); EOS # 0.2 K/uL (0.0-0.7); EOS % 3.3 % (0.0-4.0); HEMOGLOBIN 10.4 g/dL (12.0-18.0); LYMPH # 0.9 K/uL (1.0-4.3); LYMPH % 12.5 % (20.0-40.0); MEAN CELL VOLUME 91.4 fL (80.0-94.0); MEAN CORPUSCULAR HEMOGLOBIN 29.9 pg (27.0-31.0); MEAN CORPUSCULAR HGB CONC 32.7 g/dL (33.0-37.0); MEAN PLATELET VOLUME 7.5 fL (7.2-11.7); MONO # 0.7 K/uL (0.0-0.8); MONO % 9.9 % (0.0-10.0); NEUT # 5.1 K/uL (1.8-7.0); RBC 3.47 Mil/uL (4.40-5.90); RED CELL DISTRIBUTION WIDTH 17.6 % (11.5-14.5)
[2017-11-29] MEDS: metOLazone 2.5 MG TAB PO SCH (10:04)
[2017-11-29 10:07] LABS: ALB/GLOB RATIO 1.1 (1.0-2.1); ALBUMIN 3.3 g/dL (3.5-5.0); ALT/SGPT 43 U/L (21-72); AST/SGOT 35 U/L (17-59); BLOOD UREA NITROGEN 40 mg/dL (9-20); CALCIUM 8.7 mg/dl (8.6-10.4); GFR AFRICAN-AMERICAN > 60; GFR NON-AFRICAN AMERICAN 58
[2017-11-29] MEDS: Clotrimazole/Betamethasone Cream(15 gm) TOP SCH (10:14)
--- NOTE | 2017-11-29 10:49 | CP.PCM.PN ---
Subjective - Date & Time of Evaluation Date of Evaluation: 11/29/17 Time of Evaluation: 10:45 - Subjective Subjective: Hospitalist Service (Covering Dr. Ramirez 11/29-12/06) Patient seen and examined. Patient is seen in his stroller. Patient is hard of hearing (left ear). Patient reports he is doing well. He reports he still has the swelling. Patient denies headache, denies chest pain, denies dizziness, denies abdominal pain, denies constipation,patient has bilateral leg swelling. His dressing was changed this morning by the podiatry resident. patient reports when he first came to the hospital he had trouble peeing because the lasix stopped working. He reports since getting the new medication he has been peeing alot. Objective - Vital Signs/Intake and Output Vital Signs (last 24 hours): Temp Pulse Resp BP Pulse Ox 98.2 F 78 20 117/70 96 11/28/17 23:42 11/28/17 23:42 11/28/17 23:42 11/29/17 10:05 11/28/17 23:42 - Medications Medications: Current Medications Aspirin (Ecotrin) 81 mg PO DAILY [facility] Last Admin: 11/29/17 10:04 Dose: 81 mg Betamethasone/Clotrimazole (Lotrisone) 0 gm TOP DAILY [facility] Last Admin: 11/29/17 10:14 Dose: Not Given Diphenhydramine HCl (Benadryl) 25 mg PO HS PRN PRN Reason: Restlessness Last Admin: 11/28/17 22:19 Dose: 25 mg Furosemide (Lasix) 40 mg IVP DAILY [facility] Last Admin: 11/29/17 10:05 Dose: 40 mg Heparin Sodium (Porcine) (Heparin) 5,000 units SC Q12 [facility] Last Admin: 11/29/17 10:14 Dose: 5,000 units Meropenem 500 mg/ Sodium (Chloride) 100 mls @ 100 mls/hr IVPB Q8 [facility] PRN Reason: Protocol Last Admin: 11/29/17 05:31 Dose: 100 mls/hr Insulin Human Regular (Novolin R) 0 unit SC ACHS [facility] PRN Reason: Protocol Last Admin: 11/29/17 07:40 Dose: Not Given Metolazone (Zaroxolyn) 2.5 mg PO DAILY [facility] Stop: 12/01/17 10:01 Last Admin: 11/29/17 10:04 Dose: 2.5 mg Metoprolol Tartrate (Lopressor) 25 mg PO BID [facility] Last Admin: 11/29/17 10:04 Dose: 25 mg Rosuvastatin Calcium (Crestor) 10 mg PO HS [facility] Last Admin: 11/28/17 21:15 Dose: 10 mg Tamsulosin HCl (Flomax) 0.4 mg PO DAILY [facility] Last Admin: 11/29/17 10:04 Dose: 0.4 mg - Labs Labs: 11/29/17 09:29 11/29/17 09:29 - Constitutional Appears: Non-toxic, No Acute Distress, Older Than Stated Age - Head Exam Head Exam: NORMAL INSPECTION Additional comments: hard of hearing (left ear) - Eye Exam Eye Exam: EOMI, PERRL - ENT Exam ENT Exam: Mucous Membranes Moist - Respiratory Exam Respiratory Exam: Rales (bibasilar crackles), NORMAL BREATHING PATTERN. absent : Rhonchi, Wheezes, Stridor - Cardiovascular Exam Cardiovascular Exam: JVD, +S1, +S2, Murmur - GI/Abdominal Exam GI & Abdominal Exam: Soft, Normal Bowel Sounds. absent: Distended, Firm, Guarding, Rigid, Rebound - Neurological Exam Neurological Exam: Alert, Awake, Oriented x3 - Psychiatric Exam Psychiatric exam: Normal Affect, Normal Mood - Skin Skin Exam: Dry, Warm Additional comments: bilateral lower extremities: edema present up to the knees; mild pitting erythema noted over the legs and toes Clean dressing wrapped c/d/i Assessment and Plan (1) Cellulitis Status: Acute (2) Edema Status: Acute (3) Hypertension Status: Chronic (4) Hyperlipidemia Status: Chronic (5) Coronary artery disease Status: Chronic (6) Fluid overload Status: Acute (7) Severe aortic stenosis Status: Chronic (8) Heart failure, systolic, with acute decompensation Status: Chronic (9) Prophylactic measure Status: Acute (10) Aortic stenosis Status: Chronic Attending/Attestation - Attestation I have personally seen and examined this patient.: Yes I have fully participated in the care of the patient.: Yes I have reviewed all pertinent clinical information, including history, physical exam and plan: Yes Notes (Text): Patient seen, examined and reviewed chart. Hospitalist Service covering Dr. Ramirez's service (up until 12/06/17). Patient seen this morning. Dressing completed by podiatry prior to my arrival. noted swelling in b/l legs associated erythema. Patient is pending repeat urine culture for clearance of urinary tract infection. Cardiology is on board given patient's extensive cardiac history; patient is pending evaluation for TAVR for Dr. Armando. Patient is urinating well. Monitor bladder scan to make sure patient is not in urinary retention. Patient is on IV abx to cover for both cellulitis and urinary tract infection. He is hard of hearing but a very sweet gentleman. possible discharge planning tomorrow pending repeat urine culture and improvement in cellulitis; will need to f/u with cardiology in regards setting up patient for TAVR given patient is receiving IV antibiotic therapy for two infections. Assessment/Plan 1) Cellullitis Urinary Tract Infection Assessment/plan * Infectious Disease (Dr. Geiger) on consult-->help appreciated * Podiatry (Dr. Earle Jones/Dr. De Leon) on case help appreciated * Meropenem 500mg IVPB Q 8H (active since 11/26/17) * Bethamethasone/clotrimaazole 0gm topical daily * Urine culture (11/23/17): Morganella Morganii * Repeat urine culture (11/29/17): received * Blood culture (11/23/17): no growth after 5 days X2 * Bladder Scan (11/26/17): post void residual volume 178cc * Tamsulosin 0.4mg PO daily * Unremarkable renal sonogram. Right renal cysts. No nephrolithiasis * Bladder scan q shift is ordered * Patient reports he is urinating well since the added Metazolone yesterday 2). Fluid Overload Severe Aortic Stenosis Decompensated Systolic Heart Failure Chronic Leg swelling Assessment/plan * Cardiology (Dr. Armando) on the case-->help appreciated * Aspirin 81mg Po daily * Lasix 40mg IV qdaily * Metolazone 2.5mg PO daily * Crestor 10mg POqHS * Noted on 07/17/17 echocardiogram: moderate concentric left ventricle hypertrophy. left ventrcile systolic function appears normal. EF: 55-60%. normal LV segmental wall motion. Right ventricular systolic function is normal. biatrial enlargement. severe to critical aortic stenosis. Aortic valve area: 0.52-0.56 cm2. mild aortic regurgitation. mild mitral regurgitation. no percardial effusion * Patient is being evaluated for possible TAVR by Dr. Armando. 3) Coronary Artery Disease + Stent Hyperlipidemia Prior History of [place] Assessment/Plan * Cardiology (Dr. Armando) on the case-->help appreciated * Aspirin 81mg Po daily * Lasix 40mg IV qdaily * Metolazone 2.5mg PO daily * Crestor 10mg POqHS * Noted on 07/17/17 echocardiogram: moderate concentric left ventricle hypertrophy. left ventrcile systolic function appears normal. EF: 55-60%. normal LV segmental wall motion. Right ventricular systolic function is normal. biatrial enlargement. severe to critical aortic stenosis. Aortic valve area: 0.52-0.56 cm2. mild aortic regurgitation. mild mitral regurgitation. no percardial effusion 4) Prophylactic Measure * Add Bacid 1 tab PO daily * Heparin 5000 units [id number]
[2017-11-29] MEDS: Lactobacillus Acidophilus 500 MU Cap PO SCH (22:46)
--- NOTE | 2017-11-29 23:02 | CP.PCM.PN ---
Subjective - Date & Time of Evaluation Date of Evaluation: 11/29/17 Time of Evaluation: 18:00 - Subjective Subjective: Patient seen and evaluated Denies chest pain and dyspnea Objective - Vital Signs/Intake and Output Vital Signs (last 24 hours): Temp Pulse Resp BP Pulse Ox 98.4 F 73 20 134/70 95 11/29/17 08:00 11/29/17 08:00 11/29/17 08:00 11/29/17 18:00 11/29/17 08:00 - Medications Medications: Current Medications Aspirin (Ecotrin) 81 mg PO DAILY [facility] Last Admin: 11/29/17 10:04 Dose: 81 mg Betamethasone/Clotrimazole (Lotrisone) 0 gm TOP DAILY [facility] Last Admin: 11/29/17 10:14 Dose: Not Given Diphenhydramine HCl (Benadryl) 25 mg PO HS PRN PRN Reason: Restlessness Last Admin: 11/29/17 21:13 Dose: 25 mg Furosemide (Lasix) 40 mg IVP DAILY [facility] Heparin Sodium (Porcine) (Heparin) 5,000 units SC Q12 [facility] Last Admin: 11/29/17 21:11 Dose: 5,000 units Meropenem 500 mg/ Sodium (Chloride) 100 mls @ 100 mls/hr IVPB Q8 [facility] PRN Reason: Protocol Last Admin: 11/29/17 21:13 Dose: 100 mls/hr Insulin Human Regular (Novolin R) 0 unit SC ACHS [facility] PRN Reason: Protocol Last Admin: 11/29/17 21:41 Dose: Not Given Lactobacillus Acidophilus (Bacid Acidophilus) 1 cap PO BID [facility] Last Admin: 11/29/17 22:46 Dose: 1 cap Metolazone (Zaroxolyn) 2.5 mg PO DAILY [facility] Stop: 12/01/17 10:01 Last Admin: 11/29/17 10:04 Dose: 2.5 mg Metoprolol Tartrate (Lopressor) 25 mg PO BID [facility] Last Admin: 11/29/17 18:00 Dose: 25 mg Rosuvastatin Calcium (Crestor) 10 mg PO HS [facility] Last Admin: 11/29/17 21:10 Dose: 10 mg Tamsulosin HCl (Flomax) 0.4 mg PO DAILY [facility] Last Admin: 11/29/17 10:04 Dose: 0.4 mg - Labs Labs: 11/29/17 09:29 11/29/17 09:29
[2017-11-30] MEDS: Meropenem 500 MG in Sodium Chloride 0.9% 100 ML IVPB SCH ×4 (05:12→21:24)
[2017-11-30] MEDS: (Novolin R) Insulin Human Regular 100 units/ml vial SC SCH ×4 (07:23→21:22)
[2017-11-30 07:40] LABS: URINE BILIRUBIN NEGATIVE (NEGATIVE); URINE BLOOD 1+ (NEGATIVE); URINE CLARITY Clear (Clear); URINE COLOR Straw (YELLOW); URINE GLUCOSE (UA) NORMAL (Normal); URINE LEUKOCYTE ESTERASE NEG Leu/uL (Negative); URINE PROTEIN NEGATIVE (NEGATIVE); URINE UROBILINOGEN NORMAL mg/dL (0.2-1.0)
[2017-11-30] MEDS: metOLazone 2.5 MG TAB PO SCH (09:02)
[2017-11-30] MEDS: Lactobacillus Acidophilus 500 MU Cap PO SCH ×2 (09:02→18:53)
[2017-11-30] MEDS: Clotrimazole/Betamethasone Cream(15 gm) TOP SCH (09:06)
[2017-11-30 11:36] LABS: BASO % 0.2 % (0.0-2.0); EOS # 0.2 K/uL (0.0-0.7); EOS % 2.6 % (0.0-4.0); HEMOGLOBIN 11.2 g/dL (12.0-18.0); LYMPH % 13.9 % (20.0-40.0); MEAN CELL VOLUME 90.7 fL (80.0-94.0); MEAN CORPUSCULAR HEMOGLOBIN 30.1 pg (27.0-31.0); MEAN CORPUSCULAR HGB CONC 33.1 g/dL (33.0-37.0); MEAN PLATELET VOLUME 7.5 fL (7.2-11.7); MONO # 0.7 K/uL (0.0-0.8); NEUT # 5.4 K/uL (1.8-7.0); NEUT % 73.3 % (50.0-75.0); NRBC % 0.1 % (0.0-2.0); RBC 3.72 Mil/uL (4.40-5.90); RED CELL DISTRIBUTION WIDTH 17.1 % (11.5-14.5); WHITE BLOOD COUNT 7.3 K/uL (4.8-10.8)
[2017-11-30 11:48] LABS: ALB/GLOB RATIO 1.2 (1.0-2.1); ALBUMIN 3.8 g/dL (3.5-5.0); ALT/SGPT 47 U/L (21-72); AST/SGOT 55 U/L (17-59); BLOOD UREA NITROGEN 43 mg/dL (9-20); GFR AFRICAN-AMERICAN > 60; GFR NON-AFRICAN AMERICAN 58
--- NOTE | 2017-11-30 12:00 | CP.PCM.PN ---
Subjective - Date & Time of Evaluation Date of Evaluation: 11/30/17 Time of Evaluation: 10:29 - Subjective Subjective: Podiatry progress note for Dr. Jones, 82 y/o male seen at bedside for bilateral lower extremity rash with cellulitis. Patient is resting well in chair and in no acute distress. Patient dressing was clean, dry and intact. Patient sitting comfortably, and denies scratching his legs. Patient denies any pedal complaints at this time. Patient denies N/V/F/C or SOB Objective - Vital Signs/Intake and Output Vital Signs (last 24 hours): Temp Pulse Resp BP Pulse Ox 98.2 F 76 20 140/70 95 11/30/17 07:00 11/30/17 07:00 11/30/17 07:00 11/30/17 09:02 11/30/17 07:00 Intake and Output: 11/30/17 11/30/17 06:59 18:59 Intake Total 300 Balance 300 - Medications Medications: Current Medications Aspirin (Ecotrin) 81 mg PO DAILY [facility] Last Admin: 11/30/17 09:05 Dose: 81 mg Betamethasone/Clotrimazole (Lotrisone) 0 gm TOP DAILY [facility] Last Admin: 11/30/17 09:06 Dose: Not Given Diphenhydramine HCl (Benadryl) 25 mg PO HS PRN PRN Reason: Restlessness Last Admin: 11/29/17 21:13 Dose: 25 mg Furosemide (Lasix) 40 mg IVP DAILY [facility] Last Admin: 11/30/17 09:02 Dose: 40 mg Heparin Sodium (Porcine) (Heparin) 5,000 units SC Q12 [facility] Last Admin: 11/30/17 09:02 Dose: 5,000 units Meropenem 500 mg/ Sodium (Chloride) 100 mls @ 100 mls/hr IVPB Q8 [facility] PRN Reason: Protocol Last Admin: 11/30/17 07:13 Dose: Not Given Insulin Human Regular (Novolin R) 0 unit SC ACHS [facility] PRN Reason: Protocol Last Admin: 11/30/17 11:30 Dose: 6 units Lactobacillus Acidophilus (Bacid Acidophilus) 1 cap PO BID [facility] [place] Last Admin: 11/30/17 09:02 Dose: 1 cap Metolazone (Zaroxolyn) 2.5 mg PO DAILY [facility] Stop: 12/01/17 10:01 Last Admin: 11/30/17 09:02 Dose: 2.5 mg Metoprolol Tartrate (Lopressor) 25 mg PO BID [facility] Last Admin: 11/30/17 09:01 Dose: 25 mg Rosuvastatin Calcium (Crestor) 10 mg PO HS [facility] Last Admin: 11/29/17 21:10 Dose: 10 mg Tamsulosin HCl (Flomax) 0.4 mg PO DAILY [facility] Last Admin: 11/30/17 09:01 Dose: 0.4 mg - Labs Labs: 11/30/17 11:29 11/30/17 11:29 - Constitutional Appears: Well, Non-toxic, No Acute Distress - Extremities Exam Additional comments: Bilateral Lower Extremity Examination ; cellulitis improved in terms of erythema to right leg VASC: pedal pulses non-palpable bilaterally, TG warm to warm, +2 pitting edema noted bilaterally, CFT less than 3 second X 10 NEURO: grossly intact DERM: multiple focal rashes noted bilaterally to anterior aspect of right leg and anterior and medial aspects of the left leg, mild edema noted to lower legs bilaterally, superficial abrasions noted bilaterally consistent with scratch solares, no drainage, no malodor MSK: no pain on palpation to lower extremity joints, decreased passive ROM to joints distal to ankle b/l - Neurological Exam Neurological Exam: Alert, Awake, Oriented x3 - Psychiatric Exam Psychiatric exam: Normal Affect, Normal Mood Assessment and Plan - Assessment and Plan (Free Text) Assessment: 82 y/o male seen at bedside for bilateral lower extremity rashes and cellulitis Plan: Patient seen and evaluated at bedside Patient plan discussed with attending, Dr. De Leon Charts, Labs and Vitals reviewed Bilateral lower extremity- Lotrisone applied and legs wrapped with TREVA Bandage Continue Iv Abx Podiatry will continue to follow patient in-house
--- NOTE | 2017-11-30 13:10 | CP.PCM.PN ---
Subjective - Date & Time of Evaluation Date of Evaluation: 11/30/17 Time of Evaluation: 13:06 - Subjective Subjective: Medicine progress note for Dr. Hannah Craig (Hospitalist covering for Dr. Ramirez) Patient was seen and examined at bedside in no acute distress. Patient states he is worried about going home as he feels he will not be able to take care of his LE wounds. He also complains of burning with urination and says is has not improved. Patient denies chest pain, abdominal pain, dyspnea, nausea, vomiting, fevers, headaches, constipation/diarrhea. Objective - Vital Signs/Intake and Output Vital Signs (last 24 hours): Temp Pulse Resp BP Pulse Ox 98.2 F 76 20 140/70 95 11/30/17 07:00 11/30/17 07:00 11/30/17 07:00 11/30/17 09:02 11/30/17 07:00 Intake and Output: 11/30/17 11/30/17 06:59 18:59 Intake Total 300 Balance 300 - Medications Medications: Current Medications Aspirin (Ecotrin) 81 mg PO DAILY [facility] Last Admin: 11/30/17 09:05 Dose: 81 mg Betamethasone/Clotrimazole (Lotrisone) 0 gm TOP DAILY [facility] Last Admin: 11/30/17 09:06 Dose: Not Given Diphenhydramine HCl (Benadryl) 25 mg PO HS PRN PRN Reason: Restlessness Last Admin: 11/29/17 21:13 Dose: 25 mg Furosemide (Lasix) 40 mg IVP DAILY [facility] Last Admin: 11/30/17 09:02 Dose: 40 mg Heparin Sodium (Porcine) (Heparin) 5,000 units SC Q12 [facility] Last Admin: 11/30/17 09:02 Dose: 5,000 units Meropenem 500 mg/ Sodium (Chloride) 100 mls @ 100 mls/hr IVPB Q8 [facility] PRN Reason: Protocol Last Admin: 11/30/17 07:13 Dose: Not Given Insulin Human Regular (Novolin R) 0 unit SC ACHS [facility] PRN Reason: Protocol Last Admin: 11/30/17 11:30 Dose: 6 units Lactobacillus Acidophilus (Bacid Acidophilus) 1 cap PO BID [facility] Last Admin: 11/30/17 09:02 Dose: 1 cap Metolazone (Zaroxolyn) 2.5 mg PO DAILY [facility] Stop: 12/01/17 10:01 Last Admin: 11/30/17 09:02 Dose: 2.5 mg Metoprolol Tartrate (Lopressor) 25 mg PO BID [facility] Last Admin: 11/30/17 09:01 Dose: 25 mg Rosuvastatin Calcium (Crestor) 10 mg PO HS [facility] Last Admin: 11/29/17 21:10 Dose: 10 mg Saccharomyces Boulardii (Florastor) 250 mg PO BID [facility] Tamsulosin HCl (Flomax) 0.4 mg PO DAILY [facility] Last Admin: 11/30/17 09:01 Dose: 0.4 mg - Labs Labs: 11/30/17 11:29 11/30/17 11:29 - Constitutional Appears: No Acute Distress - Head Exam Head Exam: ATRAUMATIC, NORMAL INSPECTION - Eye Exam Eye Exam: EOMI, Normal appearance - ENT Exam ENT Exam: Mucous Membranes Moist Additional comments: hard of hearing - Respiratory Exam Respiratory Exam: Decreased Breath Sounds, Rales, NORMAL BREATHING PATTERN. absent: Rhonchi, Wheezes, Respiratory Distress - Cardiovascular Exam Cardiovascular Exam: REGULAR RHYTHM, +S1, +S2, Murmur - GI/Abdominal Exam GI & Abdominal Exam: Soft, Normal Bowel Sounds. absent: Firm, Guarding, Tenderness Additional comments: obese - Extremities Exam Extremities Exam: Pedal Edema (b/l). absent: Normal Inspection (wrapped with gauze- clean, dry, intact), Tenderness - Neurological Exam Neurological Exam: Alert, Awake, Oriented x3 - Psychiatric Exam Psychiatric exam: Normal Affect, Normal Mood - Skin Skin Exam: Dry, Warm Assessment and Plan - Assessment and Plan (Free Text) Plan: 1) Cellullitis Urinary Tract Infection Assessment/plan * Infectious Disease (Dr. Geiger) on consult-->help appreciated * Podiatry (Dr. Earle Jones/Dr. De Leon) on case help appreciated * Meropenem 500mg IVPB Q 8H (active since 11/26/17 for a total of 5 days; last dose to be given on 11/30/17) * Bethamethasone/clotrimaazole 0gm topical daily * Urine culture (11/23/17): Morganella Morganii * Repeat urine culture (11/29/17): negative * Blood culture (11/23/17): no growth after 5 days X2 * Bladder Scan (11/26/17): post void residual volume 178cc * Tamsulosin 0.4mg PO daily * Unremarkable renal sonogram. Right renal cysts. No nephrolithiasis * Bladder scan q shift is ordered * Patient reports he is urinating well since the added Metazolone yesterday 2). Fluid Overload Severe Aortic Stenosis Decompensated Systolic Heart Failure Chronic Leg swelling Assessment/plan * Cardiology (Dr. Armando) on the case-->help appreciated * Aspirin 81mg Po daily * Lasix 40mg IV qdaily * Metolazone 2.5mg PO daily * Crestor 10mg POqHS * Noted on 07/17/17 echocardiogram: moderate concentric left ventricle hypertrophy. left ventrcile systolic function appears normal. EF: 55-60%. normal LV segmental wall motion. Right ventricular systolic function is normal. biatrial enlargement. severe to critical aortic stenosis. Aortic valve area: 0.52-0.56 cm2. mild aortic regurgitation. mild mitral regurgitation. no percardial effusion * Patient is being evaluated for possible TAVR by Dr. Armando. 3) Coronary Artery Disease + Stent Hyperlipidemia Prior History of [place] Assessment/Plan * Cardiology (Dr. Armando) on the case-->help appreciated * Aspirin 81mg Po daily * Lasix 40mg IV qdaily * Metolazone 2.5mg PO daily * Crestor 10mg POqHS * Noted on 07/17/17 echocardiogram: moderate concentric left ventricle hypertrophy. left ventrcile systolic function appears normal. EF: 55-60%. normal LV segmental wall motion. Right ventricular systolic function is normal. biatrial enlargement. severe to critical aortic stenosis. Aortic valve area: 0.52-0.56 cm2. mild aortic regurgitation. mild mitral regurgitation. no percardial effusion 4) Prophylactic Measure * Add Bacid 1 tab PO daily * Heparin 5000 units [id number] * Case management/social: discharge planning for [facility].
--- NOTE | 2017-11-30 13:57 | CP.PCM.DIS ---
Provider - Provider Date of Admission: 11/25/17 22:39 Attending physician: Keely Ramirez MD Consults: Cardiology: Dr. Armando ID: Dr. Geiger Podiatry: Dr. Jones Time Spent in preparation of Discharge (in minutes): 45 Hospital Course - Lab Results Lab Results: Micro Results 11/29/17 08:57 Urine,Clean Catch Urine Culture - Final No Growth (<1,000 CFU/ML) 11/23/17 12:45 Blood Blood Culture - Final NO GROWTH AFTER 5 DAYS 11/23/17 12:45 Blood Gram Stain - Final TEST NOT PERFORMED 11/23/17 12:15 Blood Blood Culture - Final NO GROWTH AFTER 5 DAYS 11/23/17 12:15 Blood Gram Stain - Final TEST NOT PERFORMED 11/23/17 15:08 Urine Urine Culture - Final Morganella Morganii Most Recent Lab Values WBC 7.3 K/uL (4.8-10.8) 11/30/17 11:29 RBC 3.72 Mil/uL (4.40-5.90) L 11/30/17 11:29 Hgb 11.2 g/dL (12.0-18.0) L 11/30/17 11:29 Hct 33.7 % (35.0-51.0) L 11/30/17 11:29 MCV 90.7 fL (80.0-94.0) 11/30/17 11:29 MCH 30.1 pg (27.0-31.0) 11/30/17 11:29 MCHC 33.1 g/dL (33.0-37.0) 11/30/17 11:29 RDW 17.1 % (11.5-14.5) H 11/30/17 11:29 Plt Count 278 K/uL (130-400) 11/30/17 11:29 MPV 7.5 fL (7.2-11.7) 11/30/17 11:29 Neut % (Auto) 73.3 % (50.0-75.0) 11/30/17 11:29 Lymph % (Auto) 13.9 % (20.0-40.0) L 11/30/17 11:29 [place] % (Auto) 10.0 % (0.0-10.0) 11/30/17 11:29 Eos % (Auto) 2.6 % (0.0-4.0) 11/30/17 11:29 Baso % (Auto) 0.2 % (0.0-2.0) 11/30/17 11: Neut # (Auto) 5.4 K/uL (1.8-7.0) 11/30/17 11: Lymph # (Auto) 1.0 K/uL (1.0-4.3) 11/30/17 11: [place] # (Auto) 0.7 K/uL (0.0-0.8) 11/30/17 11: Eos # (Auto) 0.2 K/uL (0.0-0.7) 11/30/17 11: Baso # (Auto) 0.0 K/uL (0.0-0.2) 11/30/17 11:29 Sodium 138 mmol/L (132-148) 11/30/17 11:29 Potassium 4.6 mmol/L (3.6-5.2) 11/30/17 11:29 Chloride 98 mmol/L (98-107) 11/30/17 11:29 Carbon Dioxide 29 mmol/L (22-30) 11/30/17 11:29 Anion Gap 16 (10-20) 11/30/17 11:29 BUN 43 mg/dL (9-20) H 11/30/17 11:29 Creatinine 1.2 mg/dL (0.8-1.5) 11/30/17 11:29 Est GFR ( Amer) > 60 11/30/17 11:29 Est GFR (Non-Af Amer) 58 11/30/17 11:29 POC Glucose (mg/dL) 309 mg/dL (65-110) H 11/30/17 10:53 Random Glucose 254 mg/dL (75-110) H 11/30/17 11:29 Hemoglobin A1c 6.7 % (4.2-6.5) H 11/30/17 08:13 Calcium 9.0 mg/dl (8.6-10.4) 11/30/17 11:29 Magnesium 1.9 mg/dL (1.6-2.3) 11/29/17 09:29 Total Bilirubin 0.5 mg/dL (0.2-1.3) 11/30/17 11:29 AST 55 U/L (17-59) 11/30/17 11:29 ALT 47 U/L (21-72) 11/30/17 11:29 Alkaline Phosphatase 92 U/L (38-126) 11/30/17 11:29 Total Creatine Kinase 85 U/L (55-170) 11/25/17 07:17 CK-MB (Mass) 2.35 ng/mL (0.0-3.38) 11/25/17 07:17 Troponin I 0.0450 ng/mL (0.00-0.120) 11/25/17 07:17 NT-Pro-B Natriuret Pep 58907 pg/mL (0-900) H 11/25/17 07:17 Total Protein 7.0 g/dL (6.3-8.3) 11/30/17 11:29 Albumin 3.8 g/dL (3.5-5.0) 11/30/17 11: Globulin 3.2 gm/dL (2.2-3.9) 11/30/17 11:29 Albumin/Globulin Ratio 1.2 (1.0-2.1) 11/30/17 11:29 Urine Color Straw (YELLOW) 11/30/17 07:34 Urine Clarity Clear (Clear) 11/30/17 07:34 Urine pH 6.0 (5.0-8.0) 11/30/17 07:34 Ur Specific [place] 1.009 (1.003-1.030) 11/30/17 07:34 Urine Protein Negative mg/dL (NEGATIVE) 11/30/17 07:34 Urine Glucose (UA) Normal mg/dL (Normal) 11/30/17 07:34 Urine Ketones Negative mg/dL (NEGATIVE) 11/30/17 07:34 Urine Blood 1+ (NEGATIVE) H 11/30/17 07:34 Urine Nitrate Negative (NEGATIVE) 11/30/17 07:34 Urine Bilirubin Negative (NEGATIVE) 11/30/17 07:34 Urine Urobilinogen Normal mg/dL (0.2-1.0) 11/30/17 07:34 Ur Leukocyte Esterase Neg [place]/uL (Negative) 11/30/17 07:34 Urine WBC (Auto) < 1 /hpf (0-5) 11/30/17 07:34 Urine RBC (Auto) < 1 /hpf (0-3) 11/30/17 07:34 Ur Squamous Epith Cells < 1 /hpf (0-5) 11/23/17 14:14 Triple Phos Crystals Mod /hpf (<OCC) H 11/23/17 14:14 Urine Bacteria Occ (<OCC) H 11/23/17 14:14 - Hospital Course Hospital Course: HPI: 82-year-old male with a history of hypertension CAD hypercholesterolemia CAD, status post a stent in 2014, also had a cholecystectomy in the past. Patient also has a history of aortic stenosis. He claims that he had a heart attack 2. He came to the emergency room with increasing symptoms of bilateral leg swelling. He is also complaining of redness, rash, itching. He is having the symptom for almost a week. In the emergency room patient was also feeling extremely weak. He was also noted to have urinary tract infection, and also feeling somewhat weak, tired. He did have a low-grade fever. Cough noted. With mucus production. He denies any chest pain. Palpitation on and off noted. Hospital course: Patient was admitted on 11/23/17 for cellulitis and CHF exacerbation. This is a brief summary of the hospital course. Please see EMR for more details. Discharge Exam - Additional Findings Additional findings: - Constitutional Appears: No Acute Distress - Head Exam Head Exam: ATRAUMATIC, NORMAL INSPECTION - Eye Exam Eye Exam: EOMI, Normal appearance - ENT Exam ENT Exam: Mucous Membranes Moist Additional comments: hard of hearing - Respiratory Exam Respiratory Exam: Decreased Breath Sounds, Rales, NORMAL BREATHING PATTERN. absent: Rhonchi, Wheezes, Respiratory Distress - Cardiovascular Exam Cardiovascular Exam: REGULAR RHYTHM, +S1, +S2, Murmur - GI/Abdominal Exam GI & Abdominal Exam: Soft, Normal Bowel Sounds. absent: Firm, Guarding, Tenderness Additional comments: obese - Extremities Exam Extremities Exam: Pedal Edema (b/l). absent: Normal Inspection (wrapped with gauze- clean, dry, intact), Tenderness - Neurological Exam Neurological Exam: Alert, Awake, Oriented x3 - Psychiatric Exam Psychiatric exam: Normal Affect, Normal Mood - Skin Skin Exam: Dry, Warm Discharge Plan - Follow Up Plan Condition: STABLE Disposition: REHAB FACILITY/REHAB UNIT Additional Instructions: Patient is stable for discharge to [facility] at [facility]. Patient must continue all medications. Patient's last dose of Merrem should be at 9:30pm on 11/30/17. Patient's last dose on Metalzone should be given at 10am on 12/01/17. Patient must follow up with PMD within 1-2 weeks after discharge [facility]. Please followup with Dr. Armando in two weeks for future TAVR procedure for your heart. Please arrange for home visiting nursing aid after discharge from [facility]. Once the patient is able to safelt transfer from wheelchair to bed and from wheelchair to toilet, please allow patient to leave when he wants. If symptoms worsen or reoccur, patient should return to nearest ER.
--- NOTE | 2017-11-30 14:05 | CP.PCM.PN ---
Subjective - Date & Time of Evaluation Date of Evaluation: 11/30/17 Time of Evaluation: 01:45 - Subjective Subjective: dictated Objective - Vital Signs/Intake and Output Vital Signs (last 24 hours): Temp Pulse Resp BP Pulse Ox 98.2 F 76 20 140/70 95 11/30/17 07:00 11/30/17 07:00 11/30/17 07:00 11/30/17 09:02 11/30/17 07:00 Intake and Output: 11/30/17 11/30/17 06:59 18:59 Intake Total 300 Balance 300 - Medications Medications: Current Medications Aspirin (Ecotrin) 81 mg PO DAILY [facility] Last Admin: 11/30/17 09:05 Dose: 81 mg Betamethasone/Clotrimazole (Lotrisone) 0 gm TOP DAILY [facility] Last Admin: 11/30/17 09:06 Dose: Not Given Diphenhydramine HCl (Benadryl) 25 mg PO HS PRN PRN Reason: Restlessness Last Admin: 11/29/17 21:13 Dose: 25 mg Furosemide (Lasix) 40 mg IVP DAILY [facility] Last Admin: 11/30/17 09:02 Dose: 40 mg Heparin Sodium (Porcine) (Heparin) 5,000 units SC Q12 [facility] Last Admin: 11/30/17 09:02 Dose: 5,000 units Meropenem 500 mg/ Sodium (Chloride) 100 mls @ 100 mls/hr IVPB Q8 [facility] PRN Reason: Protocol Last Admin: 11/30/17 13:33 Dose: 100 mls/hr Insulin Human Regular (Novolin R) 0 unit SC ACHS [facility] PRN Reason: Protocol Last Admin: 11/30/17 11:30 Dose: 6 units Lactobacillus Acidophilus (Bacid Acidophilus) 1 cap PO BID [facility] Last Admin: 11/30/17 09:02 Dose: 1 cap Metolazone (Zaroxolyn) 2.5 mg PO DAILY [facility] Stop: 12/01/17 10:01 Last Admin: 11/30/17 09:02 Dose: 2.5 mg Metoprolol Tartrate (Lopressor) 25 mg PO BID [facility] Last Admin: 11/30/17 09:01 Dose: 25 mg Rosuvastatin Calcium (Crestor) 10 mg PO HS [facility] Last Admin: 11/29/17 21:10 Dose: 10 mg Saccharomyces Boulardii (Florastor) 250 mg PO BID [facility] Tamsulosin HCl (Flomax) 0.4 mg PO DAILY [facility] Last Admin: 11/30/17 09:01 Dose: 0.4 mg - Labs Labs: 11/30/17 11:29 11/30/17 11:29
[2017-11-30] MEDS ORDERED: Saccharomyces Boulardi 250 mg Cap PO SCH (18:00)
--- NOTE | 2017-11-30 22:49 | PN ---
DATE: 11/30/2017 INFECTIOUS DISEASE FOLLOWUP SUBJECTIVE: The patient remains awake and alert. He denies any complaints. OBJECTIVE: HEENT: Head is atraumatic, normocephalic. Eyes are reacting. LUNGS: Have decreased breath sounds. HEART: S1, S2 is regular. ABDOMEN: Soft, nontender. No guarding, no rigidity present. EXTREMITIES: Remain with edema and he has scratch solares. LABORATORY DATA: His labs are unremarkable. White count is 7.3, hemoglobin 11.2, hematocrit 33.7, platelet count is 278. Today is the last day of his meropenem. His last urine culture came out BUN is 43, creatinine is 1.2. Urine culture came out negative. ASSESSMENT AND PLAN: He needs to be monitored by the spot facer. At this time, his nails are short and I told him to put his legs off when he is not walking which will be important to decrease the edema and he needs to be treated. He is being treated by Dr. Armando for his congestive heart failure. We will follow. Eros Geiger MD
[2017-12-01] MEDS: Meropenem 500 MG in Sodium Chloride 0.9% 100 ML IVPB SCH (05:15)
--- NOTE | 2017-12-01 07:00 | CP.PCM.DIS ---
<Theresa Goins - Last Filed: 12/01/17 09:52> Provider - Provider Date of Admission: 11/25/17 22:39 Attending physician: Keely Ramirez MD Consults: ID: Dr. Geiger Podiatry: Dr. Jones Cardiology: Dr. Armando Time Spent in preparation of Discharge (in minutes): 45 Hospital Course - Lab Results Lab Results: Micro Results 11/29/17 08:57 Urine,Clean Catch Urine Culture - Final No Growth (<1,000 CFU/ML) 11/23/17 12:45 Blood Blood Culture - Final NO GROWTH AFTER 5 DAYS 11/23/17 12:45 Blood Gram Stain - Final TEST NOT PERFORMED 11/23/17 12:15 Blood Blood Culture - Final NO GROWTH AFTER 5 DAYS 11/23/17 12:15 Blood Gram Stain - Final TEST NOT PERFORMED 11/23/17 15:08 Urine Urine Culture - Final Morganella Morganii Most Recent Lab Values WBC 7.3 K/uL (4.8-10.8) 11/30/17 11:29 RBC 3.72 Mil/uL (4.40-5.90) L 11/30/17 11:29 Hgb 11.2 g/dL (12.0-18.0) L 11/30/17 11:29 Hct 33.7 % (35.0-51.0) L 11/30/17 11:29 MCV 90.7 fL (80.0-94.0) 11/30/17 11:29 MCH 30.1 pg (27.0-31.0) 11/30/17 11:29 MCHC 33.1 g/dL (33.0-37.0) 11/30/17 11:29 RDW 17.1 % (11.5-14.5) H 11/30/17 11:29 Plt Count 278 K/uL (130-400) 11/30/17 11:29 MPV 7.5 fL (7.2-11.7) 11/30/17 11:29 Neut % (Auto) 73.3 % (50.0-75.0) 11/30/17 11:29 Lymph % (Auto) 13.9 % (20.0-40.0) L 11/30/17 11:29 Davis % (Auto) 10.0 % (0.0-10.0) 11/30/17 11: Eos % (Auto) 2.6 % (0.0-4.0) 11/30/17 11: Baso % (Auto) 0.2 % (0.0-2.0) 11/30/17 11:29 Neut # (Auto) 5.4 K/uL (1.8-7.0) 11/30/17 11: Lymph # (Auto) 1.0 K/uL (1.0-4.3) 11/30/17 11: Davis # (Auto) 0.7 K/uL (0.0-0.8) 11/30/17 11: Eos # (Auto) 0.2 K/uL (0.0-0.7) 11/30/17 11: Baso # (Auto) 0.0 K/uL (0.0-0.2) 11/30/17 11:29 Sodium 138 mmol/L (132-148) 11/30/17 11:29 Potassium 4.6 mmol/L (3.6-5.2) 11/30/17 11: Chloride 98 mmol/L (98-107) 11/30/17 11: Carbon Dioxide 29 mmol/L (22-30) 11/30/17 11:29 Anion Gap 16 (10-20) 11/30/17 11:29 BUN 43 mg/dL (9-20) H 11/30/17 11:29 Creatinine 1.2 mg/dL (0.8-1.5) 11/30/17 11:29 Est GFR ( Amer) > 60 11/30/17 11:29 Est GFR (Non-Af Amer) 58 11/30/17 11:29 POC Glucose (mg/dL) 332 mg/dL (65-110) H 11/30/17 20:52 Random Glucose 254 mg/dL (75-110) H 11/30/17 11:29 Hemoglobin A1c 6.7 % (4.2-6.5) H 11/30/17 08:13 Calcium 9.0 mg/dl (8.6-10.4) 11/30/17 11:29 Magnesium 1.9 mg/dL (1.6-2.3) 11/29/17 09:29 Total Bilirubin 0.5 mg/dL (0.2-1.3) 11/30/17 11:29 AST 55 U/L (17-59) 11/30/17 11:29 ALT 47 U/L (21-72) 11/30/17 11:29 Alkaline Phosphatase 92 U/L (38-126) 11/30/17 11:29 Total Creatine Kinase 85 U/L (55-170) 11/25/17 07:17 CK-MB (Mass) 2.35 ng/mL (0.0-3.38) 11/25/17 07:17 Troponin I 0.0450 ng/mL (0.00-0.120) 11/25/17 07:17 NT-Pro-B Natriuret Pep 12983 pg/mL (0-900) H 11/25/17 07:17 Total Protein 7.0 g/dL (6.3-8.3) 11/30/17 11:29 Albumin 3.8 g/dL (3.5-5.0) 11/30/17 11:29 Globulin 3.2 gm/dL (2.2-3.9) 11/30/17 11:29 Albumin/Globulin Ratio 1.2 (1.0-2.1) 11/30/17 11:29 Urine Color Straw (YELLOW) 11/30/17 07:34 Urine Clarity Clear (Clear) 11/30/17 07:34 Urine pH 6.0 (5.0-8.0) 11/30/17 07:34 Ur Specific [place] 1.009 (1.003-1.030) 11/30/17 07:34 Urine Protein Negative mg/dL (NEGATIVE) 11/30/17 07:34 Urine Glucose (UA) Normal mg/dL (Normal) 11/30/17 07:34 Urine Ketones Negative mg/dL (NEGATIVE) 11/30/17 07:34 Urine Blood 1+ (NEGATIVE) H 11/30/17 07:34 Urine Nitrate Negative (NEGATIVE) 11/30/17 07:34 Urine Bilirubin Negative (NEGATIVE) 11/30/17 07:34 Urine Urobilinogen Normal mg/dL (0.2-1.0) 11/30/17 07:34 Ur Leukocyte Esterase Neg Brittnee/uL (Negative) 11/30/17 07:34 Urine WBC (Auto) < 1 /hpf (0-5) 11/30/17 07:34 Urine RBC (Auto) < 1 /hpf (0-3) 11/30/17 07:34 Ur Squamous Epith Cells < 1 /hpf (0-5) 11/23/17 14:14 Triple Phos Crystals Mod /hpf (<OCC) H 11/23/17 14:14 Urine Bacteria Occ (<OCC) H 11/23/17 14:14 - Hospital Course Hospital Course: HPI: 82-year-old male with a history of hypertension CAD hypercholesterolemia CAD, status post a stent in 2014, also had a cholecystectomy in the past. Patient also has a history of aortic stenosis. He claims that he had a heart attack 2. He came to the emergency room with increasing symptoms of bilateral leg swelling. He is also complaining of redness, rash, itching. He is having the symptom for almost a week. In the emergency room patient was also feeling extremely weak. He was also noted to have urinary tract infection, and also feeling somewhat weak, tired. He did have a low-grade fever. Cough noted. With mucus production. He denies any chest pain. Palpitation on and off noted. Hospital course: Patient was admitted on 11/23/17 for cellulitis and CHF. In the ED, UA, EKG, and CXR were ordered. UA was positive for UTI, EKG showed NR, 1st degree AV block, and a RBBB. Chest xray showed vascular prominence and a left lower lung effusion. Patient was started on lasix, oxygen, and cardiology consult was ordered (Dr. Armando). Echocardiogram was also ordered and showed moderate concentric left ventricle hypertrophy; left ventrcile systolic function appears normal; EF: 55-60%. normal LV segmental wall motion; Right ventricular systolic function is normal. biatrial enlargement; severe to critical aortic stenosis; Aortic valve area: 0.52-0.56 cm2; mild aortic regurgitation. mild mitral regurgitation; no percardial effusion. Patient is to follow up outpatient with Dr Armando to discuss and possibly plan for TAVR. Repeat chest xray showed no change. ID (Dr. Geiger) was consulted regarding the UTI and cellulitis. Patient was started on Merrem and required a total of 5 days. Last dose was given on 11/30/17. Podiatry (Dr. Jones) was consulted for the leg edema and cellulitis. Blood culture and urine cultures were ordered. Blood culture negative to this date. Urine culture showed morganella morganii. Repeat blood cultures on 11/28 were negative for infection. Patient is stable for discharge to home with home nursing services.Of note, patient was encouraged to go to [facility] and accepted at [facility]; however, patient refused to go. Patient must follow up with PMD, podiatry, and industrial security analyst after discharge. This is a brief summary of the hospital course. Please see EMR for more details. Discharge Exam - Additional Findings Additional findings: - Constitutional Appears: No Acute Distress - Head Exam Head Exam: ATRAUMATIC, NORMAL INSPECTION - Eye Exam Eye Exam: EOMI, Normal appearance - ENT Exam ENT Exam: Mucous Membranes Moist Additional comments: hard of hearing - Respiratory Exam Respiratory Exam: Decreased Breath Sounds, Rales, NORMAL BREATHING PATTERN. absent: Rhonchi, Wheezes, Respiratory Distress - Cardiovascular Exam Cardiovascular Exam: REGULAR RHYTHM, +S1, +S2, Murmur - GI/Abdominal Exam GI & Abdominal Exam: Soft, Normal Bowel Sounds. absent: Firm, Guarding, Tenderness Additional comments: obese - Extremities Exam Extremities Exam: Pedal Edema (b/l). absent: Normal Inspection (wrapped with gauze- clean, dry, intact), Tenderness - Neurological Exam Neurological Exam: Alert, Awake, Oriented x3 - Psychiatric Exam Psychiatric exam: Normal Affect, Normal Mood - Skin Skin Exam: Dry, Warm Discharge Plan - Discharge Medications Prescriptions: Aspirin [Ecotrin] 81 mg PO DAILY #30 tabec Furosemide [Lasix] 20 mg PO BID #60 tablet Lactobacillus Acidophilus [Bacid Acidophilus] 1 cap PO BID #60 cap Lactobacillus Acidophilus [Bacid Acidophilus] 1 cap PO BID #60 cap Metoprolol Tartrate [Lopressor] 25 mg PO BID #60 tab Simvastatin 40 mg PO HS #30 tablet Tamsulosin [Flomax] 0.4 mg PO DAILY #30 cap - Follow Up Plan Condition: STABLE Disposition: HOME/ ROUTINE Instructions: Skin Rash (DC), Cellulitis (Skin Infection), Adult (DC), Aspirin , Furosemide, Lactobacillus, Metoprolol, Simvastatin, Tamsulosin, Urinary Tract Infection in Men (DC) Additional Instructions: Patient is stable for discharge with home services. Patient must continue all medications. 1. Aspirin 81mg PO daily 2. Lasix 20mg PO BID 3. Lactobacillus 1 capsule PO BID 4. Lopressor 25mg PO BID 5. Simvastatin 40mg PO HS 6. Flomax 0.4mg PO daily Change lower extremity dressings daily. Keep lower extremities elevated. Patient must follow up with PMD within 1 week of discharge. Please followup with Dr. Armando in two weeks for future TAVR procedure for your heart. Patient must follow up with manager of tires sales within 1 week of discharge. If symptoms worsen or reoccur, patient should return to nearest ER. Referrals: Keely Ramirez MD [Staff Provider] - <Jb Craig - Last Filed: 12/01/17 20:52> Provider - Provider Date of Admission: 11/25/17 22:39 Attending physician: Keely Ramirez MD Hospital Course - Lab Results Lab Results: Micro Results 11/29/17 08:57 Urine,Clean Catch Urine Culture - Final No Growth (<1,000 CFU/ML) 11/23/17 12:45 Blood Blood Culture - Final NO GROWTH AFTER 5 DAYS 11/23/17 12:45 Blood Gram Stain - Final TEST NOT PERFORMED 11/23/17 12:15 Blood Blood Culture - Final NO GROWTH AFTER 5 DAYS 11/23/17 12:15 Blood Gram Stain - Final TEST NOT PERFORMED 11/23/17 15:08 Urine Urine Culture - Final Morganella Morganii Most Recent Lab Values WBC 7.3 K/uL (4.8-10.8) 11/30/17 11:29 RBC 3.72 Mil/uL (4.40-5.90) L 11/30/17 11:29 Hgb 11.2 g/dL (12.0-18.0) L 11/30/17 11:29 Hct 33.7 % (35.0-51.0) L 11/30/17 11:29 MCV 90.7 fL (80.0-94.0) 11/30/17 11:29 MCH 30.1 pg (27.0-31.0) 11/30/17 11:29 MCHC 33.1 g/dL (33.0-37.0) 11/30/17 11:29 RDW 17.1 % (11.5-14.5) H 11/30/17 11:29 Plt Count 278 K/uL (130-400) 11/30/17 11:29 MPV 7.5 fL (7.2-11.7) 11/30/17 11: Neut % (Auto) 73.3 % (50.0-75.0) 11/30/17 11: Lymph % (Auto) 13.9 % (20.0-40.0) L 11/30/17 11: Davis % (Auto) 10.0 % (0.0-10.0) 11/30/17 11: Eos % (Auto) 2.6 % (0.0-4.0) 11/30/17 11: Baso % (Auto) 0.2 % (0.0-2.0) 11/30/17 11: Neut # (Auto) 5.4 K/uL (1.8-7.0) 11/30/17 11: Lymph # (Auto) 1.0 K/uL (1.0-4.3) 11/30/17 11: Davis # (Auto) 0.7 K/uL (0.0-0.8) 11/30/17 11: Eos # (Auto) 0.2 K/uL (0.0-0.7) 11/30/17 11: Baso # (Auto) 0.0 K/uL (0.0-0.2) 11/30/17 11:29 Sodium 138 mmol/L (132-148) 11/30/17 11:29 Potassium 4.6 mmol/L (3.6-5.2) 11/30/17 11: Chloride 98 mmol/L (98-107) 11/30/17 11: Carbon Dioxide 29 mmol/L (22-30) 11/30/17 11:29 Anion Gap 16 (10-20) 11/30/17 11:29 BUN 43 mg/dL (9-20) H 11/30/17 11:29 Creatinine 1.2 mg/dL (0.8-1.5) 11/30/17 11:29 Est GFR ( Amer) > 60 11/30/17 11:29 Est GFR (Non-Af Amer) 58 11/30/17 11:29 POC Glucose (mg/dL) 132 mg/dL (65-110) H 12/01/17 07:03 Random Glucose 254 mg/dL (75-110) H 11/30/17 11:29 Hemoglobin A1c 6.7 % (4.2-6.5) H 11/30/17 08:13 Calcium 9.0 mg/dl (8.6-10.4) 11/30/17 11:29 Magnesium 1.9 mg/dL (1.6-2.3) 11/29/17 09:29 Total Bilirubin 0.5 mg/dL (0.2-1.3) 11/30/17 11:29 AST 55 U/L (17-59) 11/30/17 11:29 ALT 47 U/L (21-72) 11/30/17 11:29 Alkaline Phosphatase 92 U/L (38-126) 11/30/17 11:29 Total Creatine Kinase 85 U/L (55-170) 11/25/17 07:17 CK-MB (Mass) 2.35 ng/mL (0.0-3.38) 11/25/17 07:17 Troponin I 0.0450 ng/mL (0.00-0.120) 11/25/17 07:17 NT-Pro-B Natriuret Pep 23164 pg/mL (0-900) H 11/25/17 07:17 Total Protein 7.0 g/dL (6.3-8.3) 11/30/17 11:29 Albumin 3.8 g/dL (3.5-5.0) 11/30/17 11:29 Globulin 3.2 gm/dL (2.2-3.9) 11/30/17 11:29 Albumin/Globulin Ratio 1.2 (1.0-2.1) 11/30/17 11:29 Urine Color Straw (YELLOW) 11/30/17 07:34 Urine Clarity Clear (Clear) 11/30/17 07:34 Urine pH 6.0 (5.0-8.0) 11/30/17 07:34 Ur Specific [place] 1.009 (1.003-1.030) 11/30/17 07:34 Urine Protein Negative mg/dL (NEGATIVE) 11/30/17 07:34 Urine Glucose (UA) Normal mg/dL (Normal) 11/30/17 07:34 Urine Ketones Negative mg/dL (NEGATIVE) 11/30/17 07:34 Urine Blood 1+ (NEGATIVE) H 11/30/17 07:34 Urine Nitrate Negative (NEGATIVE) 11/30/17 07:34 Urine Bilirubin Negative (NEGATIVE) 11/30/17 07:34 Urine Urobilinogen Normal mg/dL (0.2-1.0) 11/30/17 07:34 Ur Leukocyte Esterase Neg Brittnee/uL (Negative) 11/30/17 07:34 Urine WBC (Auto) < 1 /hpf (0-5) 11/30/17 07:34 Urine RBC (Auto) < 1 /hpf (0-3) 11/30/17 07:34 Ur Squamous Epith Cells < 1 /hpf (0-5) 11/23/17 14:14 Triple Phos Crystals Mod /hpf (<OCC) H 11/23/17 14:14 Urine Bacteria Occ (<OCC) H 11/23/17 14:14 Attending/Attestation - Attestation I have personally seen and examined this patient.: Yes I have fully participated in the care of the patient.: Yes I have reviewed all pertinent clinical information, including history, physical exam and plan: Yes Notes (Text): 12/01/17 20:51 Patient was seen and examined with Resident Dr. Parish Exam, assessment and plan and discharge instructions were gone over with Dr. Parish. Jb Craig D.O.
[2017-12-01] MEDS: (Novolin R) Insulin Human Regular 100 units/ml vial SC SCH (07:55)
[2017-12-01] MEDS: metOLazone 2.5 MG TAB PO SCH (09:30)
[2017-12-01 16:52] VITALS: BP 118/72; PULSE 74; TEMP 97.5; O2SAT 96
== END 2017-12-01 09:50 | disposition home or self-care (01) | DRG 602 ==
LOC: C.ER 12:09 → C.9E 14:47 → C.3T 16:05 → OBSVTOIN 11-25 22:39
PROVIDERS: ADMIT Internal Medicine; ATTEND Internal Medicine
DX: L03.116 Cellulitis of left lower limb (principal); I50.23 Acute on chronic systolic (congestive) heart failure; N39.0 Urinary tract infection, site not specified; I25.10 Atherosclerotic heart disease of native coronary artery without angina pectoris; L03.115 Cellulitis of right lower limb; I11.0 Hypertensive heart disease with heart failure; N28.1 Cyst of kidney, acquired; Z95.5 Presence of coronary angioplasty implant and graft; H91.92 Unspecified hearing loss, left ear; F03.90 Unspecified dementia, unspecified severity, without behavioral disturbance, psychotic disturbance, mood disturbance, and anxiety; E78.5 Hyperlipidemia, unspecified; E11.9 Type 2 diabetes mellitus without complications; I44.0 Atrioventricular block, first degree; I45.10 Unspecified right bundle-branch block; I25.2 Old myocardial infarction

== ENCOUNTER 2018-01-19 11:23 | Emergency (ER) | payer MEDICARE ==
[2018-01-19 11:23] VITALS: BMI 32.5
[2018-01-19 11:33] VITALS: TEMP 98.5; O2SAT 97
--- NOTE | 2018-01-19 12:11 | C.PDOC ---
History Of Present Illness 83 year old male presents to the ED for an evaluation of laceration to left big toe sustained while walking up to the bus. Patient also has chronic ulcers in both legs. He denies any other injuries/trauma, weakness or numbness. Time Seen by Provider: 01/19/18 11:43 Chief Complaint (Nursing): Lower Extremity Problem/Injury History Per: Patient History/Exam Limitations: no limitations Onset/Duration Of Symptoms: Hrs Current Symptoms Are (Timing): Still Present Past Medical History Reviewed: Historical Data, Nursing Documentation, Vital Signs Vital Signs: Last Vital Signs Temp 98.5 F 01/19/18 11:29 Pulse 81 01/19/18 15:29 Resp 20 01/19/18 15:29 BP 134/79 01/19/18 15:29 Pulse Ox 97 01/19/18 15:29 - Medical History PMH: Arthritis, CAD, CHF, Dementia, Diabetes, Gall Bladder Disease, HTN, Hypercholesterolemia Denies: Kidney Stones, Chronic Kidney Disease Surgical History: Cholecystectomy, Coronary Stent - [facility] Procedures DEBRIDEMENT OF NAIL, NAIL BED OR NAIL FOLD (04/19/13) INDIVID PSYCHOTHERAP NEC (04/19/13) LEFT HEART CARDIAC CATH (05/11/14) LT HEART ANGIOCARDIOGRAM (05/11/14) OTHER GROUP THERAPY (04/19/13) REMOVE EYELID LESION NOS (04/08/99) SKIN REPAIR & PLASTY NEC (04/08/99) Family History: States: No Known Family Hx - Social History Hx Tobacco Use: No Hx Alcohol Use: No Hx Substance Use: No - Immunization History Hx Tetanus Toxoid Vaccination: No Hx Influenza Vaccination: No Hx Pneumococcal Vaccination: No Review Of Systems Except As Marked, All Systems Reviewed And Found Negative. Skin: Positive for: Other (laceration to left big toe ) Neurological: Negative for: Weakness, Numbness Physical Exam - Physical Exam Appears: Non-toxic, No Acute Distress Skin: Warm, Dry Head: Normacephalic Eye(s): bilateral: Normal Inspection Nose: Normal Oral Mucosa: Moist Neck: Supple Chest: Symmetrical Cardiovascular: Rhythm Regular Respiratory: Normal Breath Sounds, No Rales, No Rhonchi, No Wheezing Gastrointestinal/Abdominal: Soft, No Tenderness Extremity: Normal ROM, Capillary Refill (< 2 sec), No Swelling, Other (Chronic wounds to B/L lower extremities. Fungus between toes. No evidence of acute cellulitis. Scant Bleeding around toe nail of left great toe. ) Pulses: Left Dorsalis Pedis: Normal, Right Dorsalis Pedis: Normal Neurological/Psych: Oriented x3, Normal Motor, Normal Sensation Gait: With Assistance (walker) ED Course And Treatment O2 Sat by Pulse Oximetry: 97 (RA) Pulse Ox Interpretation: Normal Disposition - Disposition Referrals: Keely Ramirez MD [Staff Provider] - Disposition: HOME/ ROUTINE Disposition Time: 14:21 Condition: GOOD Additional Instructions: Follow up with the medica doctor/clinic within 1-2 days. Return if worsened. Instructions: Wound Care (DC) Forms: [facility] (G[place]) - Clinical Impression Clinical Impression: Chronic wound of extremity - PA / CEMENT FINISHER HELPER / Resident Statement MD/DO has reviewed & agrees with the documentation as recorded. - Scribe Statement The provider has reviewed the documentation as recorded by the Scribe Lynda Green All medical record entries made by the Scribe were at my direction and personally dictated by me. I have reviewed the chart and agree that the record accurately reflects my personal performance of the history, physical exam, medical decision making, and the department course for this patient. I have also personally directed, reviewed, and agree with the discharge instructions and disposition.
[2018-01-19 15:30] VITALS: BP 134/79; PULSE 81; RESP 20
== END 2018-01-19 16:19 | disposition home or self-care (01) ==
LOC: C.ER 11:23
DX: S91.102A Unspecified open wound of left great toe without damage to nail, initial encounter (principal); X58.XXXA Exposure to other specified factors, initial encounter; Y93.01 Activity, walking, marching and hiking

== ENCOUNTER 2018-02-01 11:46 | Inpatient (IN) | payer MEDICARE ==
[2018-02-01 11:46] VITALS: BMI 32.5
[2018-02-01] MEDS ORDERED: Sodium Chloride 0.9% 500 ML IV ONE (12:22)
[2018-02-01 12:35] LABS: BASO # 0.1 K/uL (0.0-0.2); BASO % 1.1 % (0.0-2.0); EOS # 0.1 K/uL (0.0-0.7); EOS % 1.4 % (0.0-4.0); HEMOGLOBIN 11.9 g/dL (12.0-18.0); LYMPH # 1.1 K/uL (1.0-4.3); LYMPH % 12.6 % (20.0-40.0); MEAN CORPUSCULAR HEMOGLOBIN 26.8 pg (27.0-31.0); MEAN CORPUSCULAR HGB CONC 31.3 g/dL (33.0-37.0); MEAN PLATELET VOLUME 6.8 fL (7.2-11.7); MONO # 0.7 K/uL (0.0-0.8); MONO % 8.5 % (0.0-10.0); NEUT # 6.5 K/uL (1.8-7.0); NEUT % 76.4 % (50.0-75.0); RBC 4.43 Mil/uL (4.40-5.90); RED CELL DISTRIBUTION WIDTH 18.9 % (11.5-14.5); WHITE BLOOD COUNT 8.5 K/uL (4.8-10.8)
[2018-02-01 12:37] LABS: MEAN CELL VOLUME 85.5 fL (80.0-94.0)
[2018-02-01 12:47] LABS: ALBUMIN 3.8 g/dL (3.5-5.0); ALT/SGPT 25 U/L (21-72); AST/SGOT 29 U/L (17-59); BLOOD UREA NITROGEN 22 mg/dL (9-20); CALCIUM 8.8 mg/dl (8.6-10.4); GFR NON-AFRICAN AMERICAN > 60
--- NOTE | 2018-02-01 12:48 | RAD ---
Date of service: 02/01/2018 PROCEDURE: CHEST RADIOGRAPH, 1 VIEW HISTORY: WEAKNESS, COMPARISON: 11/28/2017 FINDINGS: LUNGS: Ill-defined opacity at right base. Left basilar opacity may be due to dependent pleural fluid cannot rule out left basilar consolidation as well. PLEURA: Small left pleural effusion. No right pleural effusion. No pneumothorax. CARDIOVASCULAR: Normal heart size. No congestive change. OSSEOUS STRUCTURES: No significant abnormalities. VISUALIZED UPPER ABDOMEN: Normal. OTHER FINDINGS: None. IMPRESSION: Ill-defined right basilar opacity. Small left pleural effusion and cannot rule out left basilar consolidation. Follow-up advised
--- NOTE | 2018-02-01 13:11 | C.PDOC ---
History Of Present Illness 83 year old male presents to ER c/o decreased PO intake due to decreased appetite, generalized weakness x approx 1 week. He is also c/o worsening left leg wounds/redness and pain for the past 2 months. He denies abdominal pain, nausea, vomiting, diarrhea, chest pain, shortness of breath, fever, and dysuria. Time Seen by Provider: 02/01/18 12:02 Chief Complaint (Nursing): Weakness/Neurological Deficit History Per: Patient History/Exam Limitations: no limitations Onset/Duration Of Symptoms: Other (one week) Current Symptoms Are (Timing): Still Present Past Medical History Reviewed: Historical Data, Nursing Documentation, Vital Signs Vital Signs: Last Vital Signs Temp 98.2 F 02/05/18 08:00 Pulse 71 02/05/18 08:00 Resp 20 02/05/18 08:00 BP 96/60 L 02/05/18 08:00 Pulse Ox 96 02/05/18 08:00 - Medical History PMH: Arthritis, CAD, CHF, Dementia, Diabetes, Gall Bladder Disease, HTN, Hypercholesterolemia Surgical History: Cholecystectomy, Coronary Stent - [facility] Procedures DEBRIDEMENT OF NAIL, NAIL BED OR NAIL FOLD (04/19/13) INDIVID PSYCHOTHERAP NEC (04/19/13) LEFT HEART CARDIAC CATH (05/11/14) LT HEART ANGIOCARDIOGRAM (05/11/14) OTHER GROUP THERAPY (04/19/13) REMOVE EYELID LESION NOS (04/08/99) SKIN REPAIR & PLASTY NEC (04/08/99) Family History: States: No Known Family Hx - Social History Hx Tobacco Use: No Hx Alcohol Use: No Hx Substance Use: No - Immunization History Hx Tetanus Toxoid Vaccination: No Hx Influenza Vaccination: No Hx Pneumococcal Vaccination: No Review Of Systems Constitutional: Positive for: Weakness. Negative for: Fever Cardiovascular: Negative for: Chest Pain Respiratory: Negative for: Cough, Shortness of Breath Gastrointestinal: Positive for: Other (decreased appetite). Negative for: Nausea, Vomiting, Abdominal Pain, Diarrhea Genitourinary: Negative for: Dysuria Skin: Positive for: Other (left leg redness, wounds, pain) Physical Exam - Physical Exam Appears: Well, Non-toxic, No Acute Distress Skin: Warm, Dry, Other (see extremity exam ) Head: Normacephalic Eye(s): bilateral: Normal Inspection Oral Mucosa: Moist Neck: Supple Cardiovascular: Rhythm Regular, Murmur (4/6 holosystolic murmur) Respiratory: Normal Breath Sounds, No Rales, No Rhonchi, No Wheezing Gastrointestinal/Abdominal: Normal Exam, Bowel Sounds, Soft, No Tenderness, No Guarding, No Rebound, Other (obese) Extremity: Normal ROM, Pedal Edema (B/L ), Capillary Refill (< 2 sec all digits ), Other (scattered wounds/ulcers (approx 1-2cm) on right lower leg with surrounding erythema and swelling, no fluctuance or indiration) Pulses: Left Dorsalis Pedis: Normal, Right Dorsalis Pedis: Normal Neurological/Psych: Oriented x3, Normal Sensation ED Course And Treatment - Laboratory Results Result Diagrams: 02/03/18 06:42 02/03/18 06:42 O2 Sat by Pulse Oximetry: 99 (RA) Pulse Ox Interpretation: Normal Progress Note: Blood work ordered and reviewed. Patient given IV NS bolus, IV Vancomycin and IV Cefepime. - Physician Consult Information Physician Contacted: Keely Ramirez Outcome Of Conversation: Discussed patient with his PMD, agrees with admission for leg edema, left leg wounds/cellulitis, diabetes mellitus, generalized weakness. Disposition - Disposition Disposition: HOSPITALIZED Disposition Time: 16:05 Condition: STABLE - Clinical Impression Clinical Impression: Left leg cellulitis, Generalized weakness, Diabetes mellitus - Scribe Statement The provider has reviewed the documentation as recorded by the Scribe (Per Dan) Provider Attestation: All medical record entries made by the Scribe were at my direction and personally dictated by me. I have reviewed the chart and agree that the record accurately reflects my personal performance of the history, physical exam, medical decision making, and the department course for this patient. I have also personally directed, reviewed, and agree with the discharge instructions and disposition. Decision To Admit - Pt Status Changed To: Hospital Disposition Of: Inpatient - Admit Certification Admit to Inpatient:: After my assessment, the patient will require hospitalization for at least two midnights. This is because of the severity of symptoms shown, intensity of services needed, and/or the medical risk in this patient being treated as an outpatient. - InPatient: Physician Admission Certification: I certify that this patient requires 2 or more midnights of care for the following reason:: see notes - . Bed Request Type: Regular Admitting Physician: Keely Ramirez Patient Diagnosis: Left leg cellulitis, Generalized weakness, Diabetes mellitus
[2018-02-01] MEDS ORDERED: Vancomycin 1 GM 1 GM/250 ML BAG IV STA (13:19)
[2018-02-01] MEDS ORDERED: Cefepime 1 GM in Sodium Chloride 0.9% 50 ML IVPB STA (13:20)
[2018-02-01] MEDS ORDERED: Vancomycin 1 gm/NS 200 ml 1 GM/200 ML BAG IVPB STA (13:27)
--- NOTE | 2018-02-01 18:54 | CP.PCM.HP ---
History of Present Illness - History of Present Illness History of Present Illness: Chief complaint: Bilateral leg rash HPI: 82-year-old male with a history of hypertension CAD hypercholesterolemia CAD, status post a stent in 2014, also had a cholecystectomy in the past. Patient also has a history of aortic stenosis. He claims that he had a heart attack 2. He came to the emergency room with increasing symptoms of bilateral leg swelling. He is also complaining of redness, rash, itching. He is having the symptom for almost a week. In the emergency room patient was also feeling extremely weak. poor oral intake left more swelling than the right leg Past medical history: Hypertension CAD hyperlipidemia aortic stenosis history of DE in the past, CAD and stent. Surgical history: Cholecystectomy and cardiac stenting Family history: Father at the age of 79 Mother also of natural cause. Patient has no siblings, no kids. He is living in a senior citizen house Social history: He denied any alcohol or smoking, drinks coffee daily. Currently able to walk with the wheelchair. Current medications noted from the chart. Patient current medications includes metoprolol tartrate, simvastatin, Plavix, lisinopril, Flomax, isosorbide mononitrate Review of system: No headache noted, patient is able to stand up. Complaining of no chest pain or palpitation, bilateral leg swelling itching and rash noted On examination: Vital signs are stable. Chest good air entry bilaterally. Regular heart sound. Systolic murmur bilaterally noted, radiating to the carotids Nontender abdomen. 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 No functional neurological deficit. Pedal edema bilaterally noted. Patient also having redness, itching, and a rash noted bilaterally in the lower extremities. 02/01/18 12:32 02/01/18 12:32 EKG normal sinus rhythm. First-degree AV block noted. Right bundle branch block also noted. Assessment and recommendation: 82-year-old male with a history of hypertension, hyperlipidemia, CAD, status post a stent, now admitted with the high proBNP, and vascular congestion in the chest x-ray most likely heart failure, decompensated. Associate with the bilateral pedal edema also possible cellulitis of left more than right DVT GI prophylaxis. We will repeat x-ray in the morning. We will follow the patient Present on Admission - Present on Admission Any Indicators Present on Admission: No History of DVT/PE: No History of Uncontrolled Diabetes: No Urinary Catheter: No Decubitus Ulcer Present: No Past Patient History - Infectious Disease Hx of Infectious Diseases: None - Past Medical History & Family History Past Medical History?: Yes - Past Social History Smoking Status: Never Smoked - CARDIAC Hx Congestive Heart Failure: Yes Hx Hypercholesterolemia: Yes Hx Hypertension: Yes - PULMONARY Hx Respiratory Disorders: No - NEUROLOGICAL Hx Dementia: Yes - HEENT Hx HEENT Problems: Yes (wears glasses) - RENAL Hx Chronic Kidney Disease: No Hx Kidney Stones: No - HEMATOLOGICAL/ONCOLOGICAL Hx Blood Disorders: No - INTEGUMENTARY Hx Dermatological Problems: No - MUSCULOSKELETAL/RHEUMATOLOGICAL Hx Arthritis: Yes - GASTROINTESTINAL Hx Gall Bladder Disease: Yes - GENITOURINARY/GYNECOLOGICAL Hx Genitourinary Disorders: Yes Hx Prostate Problems: Yes - PSYCHIATRIC Hx Substance Use: No - SURGICAL HISTORY Hx Cholecystectomy: Yes Hx Coronary Stent: Yes - ANESTHESIA Hx Anesthesia: Yes Hx Anesthesia Reactions: No Hx Malignant Hyperthermia: No Meds Allergies/Adverse Reactions: Allergies Allergy/AdvReac Type Severity Reaction Status Date / Time No Known Allergies Allergy Verified 02/01/18 11:57 Results - Vital Signs Recent Vital Signs: Last Vital Signs Temp 98.9 F 02/01/18 17:34 Pulse 86 02/01/18 17:34 Resp 12 02/01/18 17:34 BP 151/73 H 02/01/18 17:34 Pulse Ox 98 02/01/18 17:34 - Labs Result Diagrams: 02/01/18 12:32 02/01/18 12:32 Labs: Laboratory Results - last 24 hr 02/01/18 02/01/18 02/01/18 12:32 12:32 12:32 WBC 8.5 RBC 4.43 Hgb 11.9 L Hct 37.9 MCV 85.5 D MCH 26.8 L MCHC 31.3 L RDW 18.9 H Plt Count 339 MPV 6.8 L Neut % (Auto) 76.4 H Lymph % (Auto) 12.6 L Gonzales % (Auto) 8.5 Eos % (Auto) 1.4 Baso % (Auto) 1.1 Neut # (Auto) 6.5 Lymph # (Auto) 1.1 Gonzales # (Auto) 0.7 Eos # (Auto) 0.1 Baso # (Auto) 0.1 Sodium 138 Potassium 5.0 Chloride 103 Carbon Dioxide 25 Anion Gap 15 BUN 22 H Creatinine 1.1 Est GFR ( Amer) > 60 Est GFR (Non-Af Amer) > 60 POC Glucose (mg/dL) 221 H Random Glucose 131 H Calcium 8.8 Total Bilirubin 0.6 AST 29 ALT 25 Alkaline Phosphatase 96 Total Protein 7.5 Albumin 3.8 Globulin 3.7 Albumin/Globulin Ratio 1.0
[2018-02-01 20:19] VITALS: RESP 20
[2018-02-01] MEDS: Albuterol-Ipratrop 3 mg / 0.5 (3 ml) UD INH SCH (20:52)
[2018-02-01 21:40] LABS: SQUAMOUS EPITHIAL 1 /hpf (0-5); URINE BACTERIA MANY (<OCC); URINE BILIRUBIN NEGATIVE (NEGATIVE); URINE BLOOD 1+ (NEGATIVE); URINE CLARITY Hazy (Clear); URINE COLOR Yellow (YELLOW); URINE GLUCOSE (UA) NORMAL (Normal); URINE HYALINE CAST >20 /lpf (0-2); URINE LEUKOCYTE ESTERASE 3+ Leu/uL (Negative); URINE PROTEIN NEGATIVE (NEGATIVE); URINE UROBILINOGEN NORMAL mg/dL (0.2-1.0)
[2018-02-02] MEDS: Albuterol-Ipratrop 3 mg / 0.5 (3 ml) UD INH SCH ×4 (02:37→19:39)
--- NOTE | 2018-02-02 13:17 | VASCLAB ---
Date of service: 02/02/2018 PROCEDURE: Lower Extremity Venous Duplex Exam. HISTORY: edema PRIORS: None. TECHNIQUE: Bilateral common femoral, femoral, popliteal and posterior tibial, peroneal and great saphenous veins were evaluated. Flow was assessed with color Doppler, compressibility, assessment of phasic flow and augmentation response. Report prepared by Alice Jones, IVAN, RVS FINDINGS: RIGHT: 1. Common Femoral Vein: 1.1. Compressibility - Fully compressible: Thrombus - None : Flow - Phasic: Augmentation -Normal: Reflux - None. 2. Femoral Vein: 2.1. Compressibility - Fully compressible: Thrombus - None : Flow - Phasic: Augmentation -Normal: Reflux - None. 3. Popliteal Vein: 3.1. Compressibility - Fully compressible: Thrombus - None : Flow - Phasic: Augmentation -Normal: Reflux - None. 4. Posterior Tibial Vein: 4.1. Compressibility - Fully compressible: Thrombus - None: Flow - Phasic: Augmentation -Normal: Reflux - None. 5. Peroneal Vein: 5.1. Compressibility - Fully compressible: Thrombus - None: Flow - Phasic: Augmentation -Normal: Reflux - None. 6. Great Saphenous Vein: 6.1. Compressibility - Fully compressible: Thrombus - None: Flow - Phasic: Augmentation - Normal: Reflux - None. LEFT: 1. Common Femoral Vein: 1.1. Compressibility - Fully compressible: Thrombus - None: Flow - Phasic: Augmentation -Normal: Reflux - None. 2. Femoral Vein: 2.1. Compressibility - Fully compressible: Thrombus - None: Flow - Phasic: Augmentation -Normal: Reflux - None. 3. Popliteal Vein: 3.1. Compressibility - Fully compressible: Thrombus - None : Flow - Phasic: Augmentation -Normal: Reflux - None. 4. Posterior Tibial Vein: 4.1. Compressibility - Fully compressible: Thrombus - None: Flow - Phasic: Augmentation -Normal: Reflux - None. 5. Peroneal Vein: 5.1. Compressibility - Fully compressible: Thrombus - None: Flow - Phasic: Augmentation -Normal: Reflux - None. 6. Great Saphenous Vein: 6.1. Compressibility - Fully compressible: Thrombus - None: Flow - Phasic: Augmentation - Normal: Reflux - None. OTHER FINDINGS: Right: None significant. Left: None significant. IMPRESSION: Right: No evidence of deep or superficial vein thrombosis of the right lower extremity. Normal valve function noted of the right side. Left: No evidence of deep or superficial vein thrombosis of the left lower extremity. Normal valve function noted of the left side.
--- NOTE | 2018-02-02 21:13 | CP.PCM.PN ---
Subjective - Date & Time of Evaluation Date of Evaluation: 02/02/18 Time of Evaluation: 21:12 - Subjective Subjective: This morning patient was feeling well. He was having left leg more swelling than the right leg. Denies any chest pain. Coughing noted. Vital signs stable. Blood pressure is controlled well. Mild elevation of the glucose noted Left leg edema noted, multiple excoriation of the left leg and also in the cough noted, redness present. Induration present in the dorsum of the foot. Also the nail unhealthy Assessment: 83 male with a history of CAD hypertension and hypercholesteremia. Bilateral pedal edema. Congestive heart failure. Will continue the IV antibiotic for the ongoing cellulitis acute involving the left lower ex immediate. Venous Doppler pending result. Physical therapy. Will follow-up the patient Objective - Vital Signs/Intake and Output Vital Signs (last 24 hours): Temp Pulse Resp BP Pulse Ox 98.4 F 61 20 130/66 98 02/02/18 16:00 02/02/18 16:00 02/02/18 16:00 02/02/18 17:33 02/02/18 16:00 Intake and Output: 02/02/18 02/03/18 18:59 06:59 Intake Total 650 Balance 650 - Medications Medications: Current Medications Acetaminophen (Tylenol 325mg Tab) 650 mg PO Q6 PRN PRN Reason: pain/fever Last Admin: 02/02/18 06:30 Dose: 650 mg Albuterol/Ipratropium (Duoneb 3 Mg/0.5 Mg (3 Ml) Ud) 3 ml INH RQ6 [facility] Last Admin: 02/02/18 19:39 Dose: Not Given Famotidine (Pepcid) 20 mg PO DAILY [facility] Last Admin: 02/02/18 09:16 Dose: 20 mg Furosemide (Lasix) 20 mg IVP DAILY [facility] Last Admin: 02/02/18 09:15 Dose: 20 mg Heparin Sodium (Porcine) (Heparin) 5,000 units SC Q12 [facility] Last Admin: 02/02/18 09:16 Dose: 5,000 units Cefepime HCl 1 gm/ Dextrose 50 mls @ 100 mls/hr IVPB Q12H [facility] PRN Reason: Protocol Last Admin: 02/02/18 09:27 Dose: 100 mls/hr Vancomycin HCl 1 gm/ Sodium (Chloride) 250 mls @ 166.7 mls/hr IVPB Q24H [facility] PRN Reason: Protocol Last Admin: 02/02/18 12:44 Dose: 166.7 mls/hr Isosorbide Mononitrate (Imdur Er) 30 mg PO DAILY [facility] Last Admin: 02/02/18 09:16 Dose: 30 mg Lisinopril (Zestril) 5 mg PO DAILY [facility] Last Admin: 02/02/18 09:16 Dose: 5 mg Metoprolol Tartrate (Lopressor) 25 mg PO BID [facility] Last Admin: 02/02/18 17:33 Dose: 25 mg Rosuvastatin Calcium (Crestor) 10 mg PO HS [facility] Last Admin: 02/01/18 21:18 Dose: 10 mg Tamsulosin HCl (Flomax) 0.4 mg PO DAILY [facility] Last Admin: 02/02/18 09:16 Dose: 0.4 mg Zolpidem Tartrate (Ambien) 5 mg PO HS PRN PRN Reason: Insomnia Last Admin: 02/01/18 21:25 Dose: 5 mg - Labs Labs: 02/01/18 12:32 02/01/18 12:32
[2018-02-03] MEDS: Albuterol-Ipratrop 3 mg / 0.5 (3 ml) UD INH SCH ×4 (01:28→20:31)
[2018-02-03 06:57] LABS: BASO # 0.1 K/uL (0.0-0.2); BASO % 1.5 % (0.0-2.0); EOS # 0.2 K/uL (0.0-0.7); HEMOGLOBIN 11.1 g/dL (12.0-18.0); LYMPH # 1.2 K/uL (1.0-4.3); LYMPH % 15.9 % (20.0-40.0); MEAN CELL VOLUME 85.5 fL (80.0-94.0); MEAN CORPUSCULAR HEMOGLOBIN 27.4 pg (27.0-31.0); MONO # 0.9 K/uL (0.0-0.8); MONO % 11.7 % (0.0-10.0); NEUT % 67.9 % (50.0-75.0); RBC 4.04 Mil/uL (4.40-5.90); RED CELL DISTRIBUTION WIDTH 18.7 % (11.5-14.5); WHITE BLOOD COUNT 7.3 K/uL (4.8-10.8)
[2018-02-03 07:08] LABS: ALB/GLOB RATIO 1.1 (1.0-2.1); ALBUMIN 3.3 g/dL (3.5-5.0); ALT/SGPT 22 U/L (21-72); AST/SGOT 17 U/L (17-59); BLOOD UREA NITROGEN 31 mg/dL (9-20); CALCIUM 8.7 mg/dl (8.6-10.4); GFR NON-AFRICAN AMERICAN > 60
--- NOTE | 2018-02-03 14:56 | CARD ---
APPROVED REPORT Date of service: 02/01/2018 EKG Measurement Heart [id number] <Conclusion> Sinus rhythm with 1st degree AV block Right bundle branch block T wave abnormality, consider inferolateral ischemia Abnormal ECG
--- NOTE | 2018-02-03 23:26 | CP.PCM.PN ---
Subjective - Date & Time of Evaluation Date of Evaluation: 02/03/18 Time of Evaluation: 23:26 - Subjective Subjective: still legs swelling noted no fever edema noted on antibiotics PT will f/u Objective - Vital Signs/Intake and Output Vital Signs (last 24 hours): Temp Pulse Resp BP Pulse Ox 98.4 F 63 20 113/67 99 02/03/18 16:00 02/03/18 16:00 02/03/18 16:00 02/03/18 17:44 02/03/18 16:00 Intake and Output: 02/03/18 02/04/18 18:59 06:59 Intake Total 700 350 Output Total 450 Balance 700 -100 - Medications Medications: Current Medications Acetaminophen (Tylenol 325mg Tab) 650 mg PO Q6 PRN PRN Reason: pain/fever Last Admin: 02/03/18 09:05 Dose: 650 mg Albuterol/Ipratropium (Duoneb 3 Mg/0.5 Mg (3 Ml) Ud) 3 ml INH RQ6 [facility] Last Admin: 02/03/18 20:31 Dose: Not Given Famotidine (Pepcid) 20 mg PO DAILY [facility] Last Admin: 02/03/18 09:07 Dose: 20 mg Furosemide (Lasix) 20 mg IVP DAILY [facility] Last Admin: 02/03/18 09:06 Dose: 20 mg Heparin Sodium (Porcine) (Heparin) 5,000 units SC Q12 [facility] Last Admin: 02/03/18 21:23 Dose: 5,000 units Cefepime HCl 1 gm/ Dextrose 50 mls @ 100 mls/hr IVPB Q12H [facility] PRN Reason: Protocol Last Admin: 02/03/18 09:34 Dose: 100 mls/hr Vancomycin HCl 1 gm/ Sodium (Chloride) 250 mls @ 166.7 mls/hr IVPB Q24H [facility] PRN Reason: Protocol Last Admin: 02/03/18 12:00 Dose: 166.7 mls/hr Isosorbide Mononitrate (Imdur Er) 30 mg PO DAILY [facility] Last Admin: 02/03/18 09:06 Dose: 30 mg Lisinopril (Zestril) 5 mg PO DAILY [facility] Last Admin: 02/03/18 10:34 Dose: 5 mg Metoprolol Tartrate (Lopressor) 25 mg PO BID [facility] Last Admin: 02/03/18 17:44 Dose: 25 mg Rosuvastatin Calcium (Crestor) 10 mg PO HS [facility] Last Admin: 02/03/18 21:22 Dose: 10 mg Tamsulosin HCl (Flomax) 0.4 mg PO DAILY [facility] Last Admin: 02/03/18 09:07 Dose: 0.4 mg Zolpidem Tartrate (Ambien) 5 mg PO HS PRN PRN Reason: Insomnia Last Admin: 02/03/18 21:22 Dose: 5 mg - Labs Labs: 02/03/18 06:42 02/03/18 06:42
[2018-02-04] MEDS: Albuterol-Ipratrop 3 mg / 0.5 (3 ml) UD INH SCH ×4 (01:31→19:19)
[2018-02-05] MEDS: Albuterol-Ipratrop 3 mg / 0.5 (3 ml) UD INH SCH ×4 (01:40→19:32)
[2018-02-05] MEDS: Vancomycin 1 GM in Sodium Chloride 0.9% 200 ML IVPB SCH (12:37)
[2018-02-06] MEDS: Albuterol-Ipratrop 3 mg / 0.5 (3 ml) UD INH SCH ×4 (01:46→19:09)
--- NOTE | 2018-02-06 08:06 | CP.PCM.PN ---
Subjective - Date & Time of Evaluation Date of Evaluation: 02/04/18 Time of Evaluation: 08:04 - Subjective Subjective: Patient has no chest pain. Leg swelling still noted. Back of the legs or showing evidence of increasing redness, black eschar noted. Edema noted. Vital signs are stable. Chest good air entry bilaterally. Regular heart sound. Assessment: 81-year-old male with a history of hypertension. Hypercholesteremia. CAD. Pedal edema. Left leg cellulitis now with the acute cellulitic changes. On antibiotic. Wound management. Objective - Vital Signs/Intake and Output Vital Signs (last 24 hours): Temp Pulse Resp BP Pulse Ox 98 F 81 20 121/71 96 02/06/18 07:38 02/06/18 07:38 02/06/18 07:38 02/06/18 07:38 02/06/18 07:38 Intake and Output: 02/06/18 02/06/18 06:59 18:59 Intake Total 400 Output Total 600 Balance -200 - Medications Medications: Current Medications Acetaminophen (Tylenol 325mg Tab) 650 mg PO Q6 PRN PRN Reason: pain/fever Last Admin: 02/05/18 10:30 Dose: 650 mg Albuterol/Ipratropium (Duoneb 3 Mg/0.5 Mg (3 Ml) Ud) 3 ml INH RQ6 [facility] Last Admin: 02/06/18 01:46 Dose: Not Given Famotidine (Pepcid) 20 mg PO DAILY [facility] Last Admin: 02/05/18 10:32 Dose: 20 mg Furosemide (Lasix) 20 mg IVP DAILY [facility] Last Admin: 02/05/18 10:31 Dose: Not Given Cefepime HCl 1 gm/ Dextrose 50 mls @ 100 mls/hr IVPB Q12H [facility] PRN Reason: Protocol Last Admin: 02/05/18 21:31 Dose: 100 mls/hr Vancomycin HCl 1 gm/ Sodium (Chloride) 200 mls @ 133.333 mls/hr IVPB Q24H [facility] PRN Reason: Protocol Last Admin: 02/05/18 12:37 Dose: 133.333 mls/hr Isosorbide Mononitrate (Imdur Er) 30 mg PO DAILY [facility] Last Admin: 02/05/18 10:32 Dose: 30 mg Losartan Potassium (Cozaar) 25 mg PO DAILY [facility] Last Admin: 02/05/18 10:32 Dose: 25 mg Metoprolol Tartrate (Lopressor) 25 mg PO BID [facility] Last Admin: 02/05/18 17:26 Dose: 25 mg Rosuvastatin Calcium (Crestor) 10 mg PO HS [facility] Last Admin: 02/05/18 21:34 Dose: 10 mg Tamsulosin HCl (Flomax) 0.4 mg PO DAILY [facility] Last Admin: 02/05/18 10:33 Dose: 0.4 mg Zolpidem Tartrate (Ambien) 5 mg PO HS PRN PRN Reason: Insomnia Last Admin: 02/05/18 21:50 Dose: 5 mg - Labs Labs: 02/03/18 06:42 02/03/18 06:42
--- NOTE | 2018-02-06 08:06 | CP.PCM.PN ---
Subjective - Date & Time of Evaluation Date of Evaluation: 02/05/18 Time of Evaluation: 08:06 - Subjective Subjective: Patient has no chest pain. Leg swelling still noted. Back of the legs or showing evidence of increasing redness, black eschar noted. Edema noted. Vital signs are stable. Chest good air entry bilaterally. Regular heart sound. Assessment: 81-year-old male with a history of hypertension. Hypercholesteremia. CAD. Pedal edema. Left leg cellulitis now with the acute cellulitic changes. On antibiotic. Wound management. Objective - Vital Signs/Intake and Output Vital Signs (last 24 hours): Temp Pulse Resp BP Pulse Ox 98 F 81 20 121/71 96 02/06/18 07:38 02/06/18 07:38 02/06/18 07:38 02/06/18 07:38 02/06/18 07:38 Intake and Output: 02/06/18 02/06/18 06:59 18:59 Intake Total 400 Output Total 600 Balance -200 - Medications Medications: Current Medications Acetaminophen (Tylenol 325mg Tab) 650 mg PO Q6 PRN PRN Reason: pain/fever Last Admin: 02/05/18 10:30 Dose: 650 mg Albuterol/Ipratropium (Duoneb 3 Mg/0.5 Mg (3 Ml) Ud) 3 ml INH RQ6 [facility] Last Admin: 02/06/18 01:46 Dose: Not Given Famotidine (Pepcid) 20 mg PO DAILY [facility] Last Admin: 02/05/18 10:32 Dose: 20 mg Furosemide (Lasix) 20 mg IVP DAILY [facility] Last Admin: 02/05/18 10:31 Dose: Not Given Cefepime HCl 1 gm/ Dextrose 50 mls @ 100 mls/hr IVPB Q12H [facility] PRN Reason: Protocol Last Admin: 02/05/18 21:31 Dose: 100 mls/hr Vancomycin HCl 1 gm/ Sodium (Chloride) 200 mls @ 133.333 mls/hr IVPB Q24H [facility] PRN Reason: Protocol Last Admin: 02/05/18 12:37 Dose: 133.333 mls/hr Isosorbide Mononitrate (Imdur Er) 30 mg PO DAILY [facility] Last Admin: 02/05/18 10:32 Dose: 30 mg Losartan Potassium (Cozaar) 25 mg PO DAILY [facility] Last Admin: 02/05/18 10:32 Dose: 25 mg Metoprolol Tartrate (Lopressor) 25 mg PO BID [facility] Last Admin: 02/05/18 17:26 Dose: 25 mg Rosuvastatin Calcium (Crestor) 10 mg PO HS [facility] Last Admin: 02/05/18 21:34 Dose: 10 mg Tamsulosin HCl (Flomax) 0.4 mg PO DAILY [facility] Last Admin: 02/05/18 10:33 Dose: 0.4 mg Zolpidem Tartrate (Ambien) 5 mg PO HS PRN PRN Reason: Insomnia Last Admin: 02/05/18 21:50 Dose: 5 mg - Labs Labs: 02/03/18 06:42 02/03/18 06:42
[2018-02-06] MEDS: Vancomycin 1 GM in Sodium Chloride 0.9% 200 ML IVPB SCH (12:34)
[2018-02-07] MEDS: Albuterol-Ipratrop 3 mg / 0.5 (3 ml) UD INH SCH ×4 (01:48→20:46)
[2018-02-07] MEDS: Vancomycin 1 GM in Sodium Chloride 0.9% 200 ML IVPB SCH (12:31)
--- NOTE | 2018-02-07 19:03 | CP.PCM.PN ---
Subjective - Date & Time of Evaluation Date of Evaluation: 02/07/18 Time of Evaluation: 19:03 - Subjective Subjective: Patient left leg is still swelling noted. The wound is not healthy looking. Discharge present. On antibiotic. Seen by print machine operator. On wound dressing. Wound management We will continue the current antibiotic Lasix and will follow-up the patient Objective - Vital Signs/Intake and Output Vital Signs (last 24 hours): Temp Pulse Resp BP Pulse Ox 98.8 F 78 20 113/71 94 L 02/07/18 15:00 02/07/18 15:00 02/07/18 15:00 02/07/18 17:44 02/07/18 15:00 Intake and Output: 02/07/18 02/08/18 18:59 06:59 Intake Total 750 Balance 750 - Medications Medications: Current Medications Acetaminophen (Tylenol 325mg Tab) 650 mg PO Q6 PRN PRN Reason: pain/fever Last Admin: 02/07/18 16:12 Dose: 650 mg Albuterol/Ipratropium (Duoneb 3 Mg/0.5 Mg (3 Ml) Ud) 3 ml INH RQ6 [facility] Last Admin: 02/07/18 14:00 Dose: Not Given Famotidine (Pepcid) 20 mg PO DAILY [facility] Last Admin: 02/07/18 09:30 Dose: 20 mg Furosemide (Lasix) 20 mg IVP DAILY [facility] Last Admin: 02/07/18 09:31 Dose: 20 mg Heparin Sodium (Porcine) (Heparin) 5,000 units SC Q12 [facility] Last Admin: 02/07/18 09:31 Dose: 5,000 units Cefepime HCl 1 gm/ Dextrose 50 mls @ 100 mls/hr IVPB Q12H [facility] PRN Reason: Protocol Last Admin: 02/07/18 09:54 Dose: 100 mls/hr Vancomycin HCl 1 gm/ Sodium (Chloride) 200 mls @ 133.333 mls/hr IVPB Q24H [facility] PRN Reason: Protocol Last Admin: 02/07/18 12:31 Dose: 133.333 mls/hr Isosorbide Mononitrate (Imdur Er) 30 mg PO DAILY [facility] Last Admin: 02/07/18 09:30 Dose: 30 mg Losartan Potassium (Cozaar) 25 mg PO DAILY [facility] Last Admin: 02/07/18 09:30 Dose: 25 mg Metoprolol Tartrate (Lopressor) 25 mg PO BID [facility] Last Admin: 02/07/18 17:44 Dose: 25 mg Rosuvastatin Calcium (Crestor) 10 mg PO HS [facility] Last Admin: 02/06/18 21:24 Dose: 10 mg Tamsulosin HCl (Flomax) 0.4 mg PO DAILY [facility] Last Admin: 02/07/18 09:30 Dose: 0.4 mg Zolpidem Tartrate (Ambien) 5 mg PO HS PRN PRN Reason: Insomnia Last Admin: 02/06/18 21:24 Dose: 5 mg - Labs Labs: 02/03/18 06:42 02/03/18 06:42
[2018-02-08] MEDS: Albuterol-Ipratrop 3 mg / 0.5 (3 ml) UD INH SCH ×4 (01:30→19:31)
[2018-02-08 08:41] LABS: BASO # 0.1 K/uL (0.0-0.2); BASO % 1.3 % (0.0-2.0); EOS # 0.3 K/uL (0.0-0.7); EOS % 3.7 % (0.0-4.0); HEMOGLOBIN 10.2 g/dL (12.0-18.0); LYMPH # 1.3 K/uL (1.0-4.3); LYMPH % 14.5 % (20.0-40.0); MEAN CELL VOLUME 84.9 fL (80.0-94.0); MEAN CORPUSCULAR HEMOGLOBIN 28.1 pg (27.0-31.0); MEAN CORPUSCULAR HGB CONC 33.1 g/dL (33.0-37.0); MEAN PLATELET VOLUME 7.5 fL (7.2-11.7); MONO # 0.8 K/uL (0.0-0.8); MONO % 9.6 % (0.0-10.0); NEUT # 6.2 K/uL (1.8-7.0); NEUT % 70.9 % (50.0-75.0); NRBC % 0.1 % (0.0-2.0); RBC 3.61 Mil/uL (4.40-5.90); RED CELL DISTRIBUTION WIDTH 18.4 % (11.5-14.5); WHITE BLOOD COUNT 8.7 K/uL (4.8-10.8)
[2018-02-08 09:02] LABS: ALBUMIN 3.3 g/dL (3.5-5.0); CALCIUM 8.9 mg/dl (8.6-10.4)
[2018-02-08] MEDS: Vancomycin 1 GM in Sodium Chloride 0.9% 200 ML IVPB SCH (13:25)
--- NOTE | 2018-02-08 21:19 | CP.PCM.PN ---
Subjective - Date & Time of Evaluation Date of Evaluation: 02/08/18 Time of Evaluation: 21:19 - Subjective Subjective: Patient left leg is still swelling noted. The wound is not healthy looking. Discharge present. On antibiotic. Seen by crop duster. On wound dressing. Wound management We will continue the current antibiotic Lasix and will follow-up the patient Objective - Vital Signs/Intake and Output Vital Signs (last 24 hours): Temp Pulse Resp BP Pulse Ox 97.8 F 73 20 115/68 95 02/08/18 15:00 02/08/18 15:00 02/08/18 15:00 02/08/18 17:10 02/08/18 15:00 Intake and Output: 02/08/18 02/09/18 18:59 06:59 Intake Total 650 Output Total 450 Balance 200 - Medications Medications: Current Medications Acetaminophen (Tylenol 325mg Tab) 650 mg PO Q6 PRN PRN Reason: pain/fever Last Admin: 02/08/18 16:06 Dose: 650 mg Albuterol/Ipratropium (Duoneb 3 Mg/0.5 Mg (3 Ml) Ud) 3 ml INH RQ6 [facility] Last Admin: 02/08/18 19:31 Dose: Not Given Famotidine (Pepcid) 20 mg PO DAILY [facility] Last Admin: 02/08/18 10:38 Dose: 20 mg Furosemide (Lasix) 20 mg IVP DAILY [facility] Last Admin: 02/08/18 10:39 Dose: 20 mg Gabapentin (Neurontin) 100 mg PO TID [facility] Last Admin: 02/08/18 17:10 Dose: 100 mg Heparin Sodium (Porcine) (Heparin) 5,000 units SC Q12 [facility] Last Admin: 02/08/18 21:03 Dose: 5,000 units Cefepime HCl 1 gm/ Dextrose 50 mls @ 100 mls/hr IVPB Q12H [facility] PRN Reason: Protocol Last Admin: 02/08/18 21:04 Dose: 100 mls/hr Vancomycin HCl 1 gm/ Sodium (Chloride) 200 mls @ 133.333 mls/hr IVPB Q24H [facility] PRN Reason: Protocol Last Admin: 02/08/18 13:25 Dose: 133.333 mls/hr Isosorbide Mononitrate (Imdur Er) 30 mg PO DAILY [facility] Last Admin: 09/03/18 10:38 Dose: 30 mg Losartan Potassium (Cozaar) 25 mg PO DAILY [facility] Last Admin: 02/08/18 10:38 Dose: 25 mg Metoprolol Tartrate (Lopressor) 25 mg PO BID [facility] Last Admin: 02/08/18 17:10 Dose: 25 mg Rosuvastatin Calcium (Crestor) 10 mg PO HS [facility] Last Admin: 02/08/18 21:03 Dose: 10 mg Tamsulosin HCl (Flomax) 0.4 mg PO DAILY [facility] Last Admin: 02/08/18 10:38 Dose: 0.4 mg Zolpidem Tartrate (Ambien) 5 mg PO HS PRN PRN Reason: Insomnia Last Admin: 02/08/18 21:06 Dose: 5 mg - Labs Labs: 02/08/18 08:16 02/08/18 08:16
[2018-02-09] MEDS: Albuterol-Ipratrop 3 mg / 0.5 (3 ml) UD INH SCH ×4 (01:57→20:16)
[2018-02-09] MEDS: Vancomycin 1 GM in Sodium Chloride 0.9% 200 ML IVPB SCH (13:31)
--- NOTE | 2018-02-09 20:32 | CP.PCM.PN ---
Subjective - Date & Time of Evaluation Date of Evaluation: 02/09/18 Time of Evaluation: 20:32 - Subjective Subjective: Patient today comparing of increasing pain in the legs. Left leg wound still redness present. Burning sensation present. Seen by a retail client solutions consultant. Vital signs stable. Chest good air entry regular heart sound nontender abdomen labs reviewed nonspecific Patient has a multiple a scar in the back of the left leg. I recommended 1 management, wound care, I also advised the patient for long- term acute care facility for possible hyperbaric oxygen treatment. Will follow- up the patient Objective - Vital Signs/Intake and Output Vital Signs (last 24 hours): Temp Pulse Resp BP Pulse Ox 98.1 F 62 20 91/58 L 96 02/09/18 16:00 02/09/18 16:00 02/09/18 16:00 02/09/18 17:12 02/09/18 16:00 Intake and Output: 02/09/18 02/10/18 18:59 06:59 Intake Total 540 Balance 540 - Medications Medications: Current Medications Acetaminophen (Tylenol 325mg Tab) 650 mg PO Q6 PRN PRN Reason: pain/fever Last Admin: 02/09/18 15:11 Dose: 650 mg Albuterol/Ipratropium (Duoneb 3 Mg/0.5 Mg (3 Ml) Ud) 3 ml INH RQ6 [facility] Last Admin: 02/09/18 20:16 Dose: Not Given Famotidine (Pepcid) 20 mg PO DAILY [facility] Last Admin: 02/09/18 09:30 Dose: 20 mg Furosemide (Lasix) 20 mg IVP DAILY [facility] Last Admin: 02/09/18 09:30 Dose: 20 mg Cefepime HCl 1 gm/ Dextrose 50 mls @ 100 mls/hr IVPB Q12H [facility] PRN Reason: Protocol Last Admin: 02/09/18 11:47 Dose: 100 mls/hr Vancomycin HCl 1 gm/ Sodium (Chloride) 200 mls @ 133.333 mls/hr IVPB Q24H [facility] PRN Reason: Protocol Last Admin: 02/09/18 13:31 Dose: 133.333 mls/hr Isosorbide Mononitrate (Imdur Er) 30 mg PO DAILY [facility] Last Admin: 02/09/18 09:30 Dose: 30 mg Losartan Potassium (Cozaar) 25 mg PO DAILY [facility] Last Admin: 02/09/18 09:29 Dose: 25 mg Metoprolol Tartrate (Lopressor) 25 mg PO BID [facility] Last Admin: 02/09/18 17:12 Dose: Not Given Pregabalin (Lyrica) 25 mg PO BID [facility] Rosuvastatin Calcium (Crestor) 10 mg PO HS [facility] Last Admin: 02/08/18 21:03 Dose: 10 mg Tamsulosin HCl (Flomax) 0.4 mg PO DAILY [facility] Last Admin: 02/09/18 09:30 Dose: 0.4 mg Tramadol HCl (Ultram) 50 mg PO Q12 [facility] Zolpidem Tartrate (Ambien) 5 mg PO HS PRN PRN Reason: Insomnia Last Admin: 02/08/18 21:06 Dose: 5 mg - Labs Labs: 02/08/18 08:16 02/08/18 08:16
[2018-02-10] MEDS: Albuterol-Ipratrop 3 mg / 0.5 (3 ml) UD INH SCH ×5 (01:39→20:47)
[2018-02-10] MEDS: Vancomycin 1 GM in Sodium Chloride 0.9% 200 ML IVPB SCH (13:48)
--- NOTE | 2018-02-10 22:59 | CP.PCM.PN ---
Subjective - Date & Time of Evaluation Date of Evaluation: 02/10/18 Time of Evaluation: 22:59 - Subjective Subjective: Left leg pain and swelling noted. Patient is able to walk. He is using a walker mostly. Complaining of increasing pain Vital signs stable. Latest potassium was noted to be elevated, being treated. Left leg discharge noted a wound discharge. In my opinion patient will need wound management, and wound care I recommended LTAC, currently pending Objective - Vital Signs/Intake and Output Vital Signs (last 24 hours): Temp Pulse Resp BP Pulse Ox 98.7 F 68 20 107/57 L 95 02/10/18 16:00 02/10/18 16:00 02/10/18 16:00 02/10/18 17:21 02/10/18 16:00 Intake and Output: 02/10/18 02/11/18 18:59 06:59 Intake Total 650 300 Output Total 500 Balance 650 -200 - Medications Medications: Current Medications Acetaminophen (Tylenol 325mg Tab) 650 mg PO Q6 PRN PRN Reason: pain/fever Last Admin: 02/09/18 15:11 Dose: 650 mg Albuterol/Ipratropium (Duoneb 3 Mg/0.5 Mg (3 Ml) Ud) 3 ml INH RQ6 [facility] Last Admin: 02/10/18 20:47 Dose: Not Given Famotidine (Pepcid) 20 mg PO DAILY [facility] Last Admin: 02/10/18 10:42 Dose: 20 mg Furosemide (Lasix) 20 mg IVP DAILY [facility] Last Admin: 02/10/18 10:44 Dose: Not Given Cefepime HCl 1 gm/ Dextrose 50 mls @ 100 mls/hr IVPB Q12H [facility] PRN Reason: Protocol Last Admin: 02/10/18 21:48 Dose: 100 mls/hr Vancomycin HCl 1 gm/ Sodium (Chloride) 200 mls @ 133.333 mls/hr IVPB Q24H [facility] PRN Reason: Protocol Last Admin: 02/10/18 13:48 Dose: 133.333 mls/hr Isosorbide Mononitrate (Imdur Er) 30 mg PO DAILY [facility] Last Admin: 02/10/18 10:44 Dose: Not Given Losartan Potassium (Cozaar) 25 mg PO DAILY [facility] Last Admin: 02/10/18 10:45 Dose: Not Given Metoprolol Tartrate (Lopressor) 25 mg PO BID [facility] Last Admin: 02/10/18 17:21 Dose: 25 mg Pregabalin (Lyrica) 25 mg PO BID [facility] Last Admin: 02/10/18 17:18 Dose: 25 mg Rosuvastatin Calcium (Crestor) 10 mg PO HS [facility] Last Admin: 02/10/18 21:38 Dose: 10 mg Tamsulosin HCl (Flomax) 0.4 mg PO DAILY [facility] Last Admin: 02/10/18 10:42 Dose: 0.4 mg Tramadol HCl (Ultram) 50 mg PO Q12 [facility] Last Admin: 02/10/18 21:38 Dose: 50 mg Zolpidem Tartrate (Ambien) 5 mg PO HS PRN PRN Reason: Insomnia Last Admin: 02/10/18 21:39 Dose: 5 mg - Labs Labs: 02/08/18 08:16 02/08/18 08:16
[2018-02-11] MEDS: Albuterol-Ipratrop 3 mg / 0.5 (3 ml) UD INH SCH ×4 (01:25→20:30)
[2018-02-11] MEDS: Metoprolol Succinate 12.5 mg XL Tab PO SCH (10:10)
[2018-02-11] MEDS: POLYETHYLENE GLYCOL 3350 17 GM/Dose PACKET PO SCH (15:21)
[2018-02-12] MEDS: Albuterol-Ipratrop 3 mg / 0.5 (3 ml) UD INH SCH ×3 (02:24→13:29)
[2018-02-12 06:37] LABS: BASO # 0.2 K/uL (0.0-0.2); BASO % 1.8 % (0.0-2.0); EOS # 0.3 K/uL (0.0-0.7); EOS % 2.8 % (0.0-4.0); HEMOGLOBIN 9.9 g/dL (12.0-18.0); LYMPH # 1.5 K/uL (1.0-4.3); LYMPH % 15.6 % (20.0-40.0); MEAN CELL VOLUME 85.9 fL (80.0-94.0); MEAN CORPUSCULAR HEMOGLOBIN 27.6 pg (27.0-31.0); MEAN CORPUSCULAR HGB CONC 32.1 g/dL (33.0-37.0); MEAN PLATELET VOLUME 7.6 fL (7.2-11.7); MONO # 1.2 K/uL (0.0-0.8); MONO % 12.9 % (0.0-10.0); NEUT # 6.3 K/uL (1.8-7.0); NEUT % 66.9 % (50.0-75.0); NRBC % 0.1 % (0.0-2.0); RBC 3.57 Mil/uL (4.40-5.90); RED CELL DISTRIBUTION WIDTH 18.6 % (11.5-14.5); WHITE BLOOD COUNT 9.4 K/uL (4.8-10.8)
[2018-02-12 07:36] LABS: CALCIUM 8.5 mg/dl (8.6-10.4)
[2018-02-12] MEDS: Metoprolol Succinate 12.5 mg XL Tab PO SCH (10:47)
[2018-02-12] MEDS: POLYETHYLENE GLYCOL 3350 17 GM/Dose PACKET PO SCH (10:50)
[2018-02-13] MEDS: Albuterol-Ipratrop 3 mg / 0.5 (3 ml) UD INH SCH ×4 (01:45→20:37)
--- NOTE | 2018-02-13 08:51 | CP.PCM.PN ---
Subjective - Date & Time of Evaluation Date of Evaluation: 02/13/18 Time of Evaluation: 08:51 - Subjective Subjective: Patient is morning well. But later repeat potassium level was noted to be elevated, I advised the patient to have Kayexalate. 2 doses of kayexalate was given. Patient tolerated. Repeat labs reviewed clinical examination is unremarkable. Will continue the current treatment Hyperkalemia unclear cause, losartan discontinued. Objective - Vital Signs/Intake and Output Vital Signs (last 24 hours): Temp Pulse Resp BP Pulse Ox 98.3 F 72 20 103/61 97 02/12/18 23:36 02/12/18 23:36 02/12/18 23:36 02/12/18 23:36 02/12/18 23:36 Intake and Output: 02/13/18 02/13/18 06:59 18:59 Intake Total 520 Output Total 650 Balance -130 - Medications Medications: Current Medications Acetaminophen (Tylenol 325mg Tab) 650 mg PO Q6 PRN PRN Reason: pain/fever Last Admin: 02/11/18 13:33 Dose: 650 mg Albuterol/Ipratropium (Duoneb 3 Mg/0.5 Mg (3 Ml) Ud) 3 ml INH RQ6 [facility] Last Admin: 02/13/18 08:23 Dose: Not Given Famotidine (Pepcid) 20 mg PO DAILY [facility] Last Admin: 02/12/18 10:44 Dose: 20 mg Furosemide (Lasix) 20 mg PO DAILY [facility] Last Admin: 02/12/18 10:44 Dose: 20 mg Cefepime HCl 1 gm/ Dextrose 50 mls @ 100 mls/hr IVPB Q12H [facility] PRN Reason: Protocol Last Admin: 02/12/18 22:14 Dose: 100 mls/hr Metoprolol Succinate (Toprol Xl) 12.5 mg PO DAILY [facility] Last Admin: 02/12/18 10:47 Dose: 12.5 mg Polyethylene Glycol (Miralax) 17 gm PO DAILY [facility] Last Admin: 02/12/18 10:50 Dose: Not Given Pregabalin (Lyrica) 25 mg PO BID [facility] Last Admin: 02/12/18 17:53 Dose: 25 mg Rosuvastatin Calcium (Crestor) 10 mg PO HS [facility] Last Admin: 02/12/18 21:41 Dose: 10 mg Tamsulosin HCl (Flomax) 0.4 mg PO DAILY [facility] Last Admin: 02/12/18 10:49 Dose: 0.4 mg Tramadol HCl (Ultram) 50 mg PO Q12 [facility] Last Admin: 02/12/18 21:49 Dose: 50 mg Zolpidem Tartrate (Ambien) 5 mg PO HS PRN PRN Reason: Insomnia Last Admin: 02/10/18 21:39 Dose: 5 mg - Labs Labs: 02/12/18 06:28 02/12/18 06:28
[2018-02-13] MEDS: POLYETHYLENE GLYCOL 3350 17 GM/Dose PACKET PO SCH (09:05)
[2018-02-13] MEDS: Metoprolol Succinate 12.5 mg XL Tab PO SCH (09:06)
[2018-02-13 11:42] LABS: ALB/GLOB RATIO 1.1 (1.0-2.1); ALBUMIN 3.7 g/dL (3.5-5.0); CALCIUM 8.7 mg/dl (8.6-10.4)
[2018-02-13] MEDS ORDERED: Sod Polystyrene Sulf 15 gm/60 ml Susp PO ONE ×2 (12:45→17:13)
[2018-02-13 19:24] LABS: CALCIUM 8.9 mg/dl (8.6-10.4)
[2018-02-14] MEDS: Albuterol-Ipratrop 3 mg / 0.5 (3 ml) UD INH SCH ×4 (01:50→19:30)
[2018-02-14 09:45] LABS: BASO # 0.1 K/uL (0.0-0.2); BASO % 1.6 % (0.0-2.0); EOS # 0.2 K/uL (0.0-0.7); EOS % 2.6 % (0.0-4.0); HEMOGLOBIN 9.8 g/dL (12.0-18.0); LYMPH # 0.8 K/uL (1.0-4.3); LYMPH % 10.1 % (20.0-40.0); MEAN CELL VOLUME 85.6 fL (80.0-94.0); MEAN CORPUSCULAR HEMOGLOBIN 28.1 pg (27.0-31.0); MEAN CORPUSCULAR HGB CONC 32.9 g/dL (33.0-37.0); MEAN PLATELET VOLUME 7.4 fL (7.2-11.7); MONO # 0.8 K/uL (0.0-0.8); MONO % 10.5 % (0.0-10.0); NEUT # 5.7 K/uL (1.8-7.0); NEUT % 75.2 % (50.0-75.0); NRBC % 0.1 % (0.0-2.0); RBC 3.48 Mil/uL (4.40-5.90); RED CELL DISTRIBUTION WIDTH 18.6 % (11.5-14.5); WHITE BLOOD COUNT 7.6 K/uL (4.8-10.8)
[2018-02-14 10:07] LABS: ALBUMIN 3.3 g/dL (3.5-5.0); CALCIUM 8.2 mg/dl (8.6-10.4)
--- NOTE | 2018-02-14 10:36 | PCM.FALL ---
<Libia Huitron - Last Filed: 02/14/18 17:37> Post Fall Progress Note - Post Fall Fall Date: 02/14/18 Fall Time: 10:30 - Post Fall Exam Vital Sign: Temp Pulse Resp BP Pulse Ox 98.7 F 70 20 132/75 96 02/14/18 08:00 02/14/18 08:00 02/14/18 08:00 02/14/18 08:00 02/14/18 08:00 Skull Exam: Negative for: Scalp wound, Scalp hematoma, Scalp depression, Ridge in skull Eye Exam: Positive for: Pupils equal, Pupils reactive Ear Exam: Negative for: Discharge Nose Exam: Negative for: Discharge Skin Exam: Negative for: Lacerations, Bruising Mouth Exam: Negative for: Tongue bitten Neck Exam: Negative for: Tenderness Spinal Exam: Negative for: Tenderness Chest Exam: Negative for: Difficulty breathing Abdomen Exam: Negative for: Tenderness Pelvic Exam: Negative for: Tenderness Arm Exam: Negative for: Deformity Leg Exam: Negative for: Deformity Impression/Plan: Code star was called as nurse noticed patient was on the floor by his bed. Patient said he just slipped off the bed from sitting on the edge and his his head and fell on his bottock. He denied pain at any joint or at the hip areas. Exam was normal and no tenderness or contusions were noted. Patient was AAA x 3. CT head w/o contrast was ordered as patient stated he hit his head. Was negative for bleed. Fall precautions ordered. <Alvaro Naylor - Last Filed: 02/14/18 18:43> Post Fall Progress Note - Post Fall Exam Vital Sign: Temp Pulse Resp BP Pulse Ox 98.9 F 77 20 144/80 95 02/14/18 15:00 02/14/18 15:00 02/14/18 15:00 02/14/18 15:00 02/14/18 15:00
[2018-02-14] MEDS: Metoprolol Succinate 12.5 mg XL Tab PO SCH (10:58)
[2018-02-14] MEDS: POLYETHYLENE GLYCOL 3350 17 GM/Dose PACKET PO SCH (11:02)
--- NOTE | 2018-02-14 12:44 | CT ---
Date of service: 02/14/2018 PROCEDURE: CT HEAD WITHOUT CONTRAST. HISTORY: code star, patient hit head COMPARISON: None available. TECHNIQUE: Axial computed tomography images were obtained through the head/brain without intravenous contrast. Radiation dose: Total exam DLP = 1005 mGy-cm. This CT exam was performed using one or more of the following dose reduction techniques: Automated exposure control, adjustment of the mA and/or kV according to patient size, and/or use of iterative reconstruction technique. FINDINGS: HEMORRHAGE: No intracranial hemorrhage. BRAIN: No mass effect or edema. Scattered focal lucencies in the subcortical and periventricular white matter suggestive for chronic microvascular ischemic change. VENTRICLES: Prominent. CALVARIUM: Unremarkable. PARANASAL SINUSES: Unremarkable as visualized. No significant inflammatory changes. MASTOID AIR CELLS: Unremarkable as visualized. No inflammatory changes. OTHER FINDINGS: Intracranial arterial calcifications. Mild left prefrontal soft tissue swelling. IMPRESSION: No acute intracranial abnormality. Chronic microvascular ischemic changes. If symptoms persists, consider correlation with MRI.
--- NOTE | 2018-02-14 21:28 | CP.PCM.PN ---
Subjective - Date & Time of Evaluation Date of Evaluation: 02/14/18 Time of Evaluation: 21:28 - Subjective Subjective: Patient had a fall this morning. But this Cleta 7 negative. Combining a pain in the left leg. Wheezing noted, cough present Yesterday hypotension level was high noted, but today better. Will continue to monitor. Repeat labs in the morning Objective - Vital Signs/Intake and Output Vital Signs (last 24 hours): Temp Pulse Resp BP Pulse Ox 98.9 F 77 20 144/80 95 02/14/18 15:00 02/14/18 15:00 02/14/18 15:00 02/14/18 15:00 02/14/18 15:00 Intake and Output: 02/14/18 02/15/18 18:59 06:59 Intake Total 200 Output Total 1150 Balance -950 - Medications Medications: Current Medications Acetaminophen (Tylenol 325mg Tab) 650 mg PO Q6 PRN PRN Reason: pain/fever Last Admin: 02/14/18 11:16 Dose: 650 mg Albuterol/Ipratropium (Duoneb 3 Mg/0.5 Mg (3 Ml) Ud) 3 ml INH RQ6 [facility] Last Admin: 02/14/18 19:30 Dose: Not Given Famotidine (Pepcid) 20 mg PO DAILY [facility] Last Admin: 02/14/18 10:58 Dose: 20 mg Furosemide (Lasix) 20 mg PO DAILY [facility] Last Admin: 02/14/18 10:58 Dose: 20 mg Metoprolol Succinate (Toprol Xl) 12.5 mg PO DAILY [facility] Last Admin: 02/14/18 10:58 Dose: 12.5 mg Polyethylene Glycol (Miralax) 17 gm PO DAILY [facility] Last Admin: 02/14/18 11:02 Dose: 17 gm Rosuvastatin Calcium (Crestor) 10 mg PO HS [facility] Last Admin: 02/14/18 21:09 Dose: 10 mg Tamsulosin HCl (Flomax) 0.4 mg PO DAILY [facility] Last Admin: 02/14/18 10:57 Dose: 0.4 mg Zolpidem Tartrate (Ambien) 5 mg PO HS PRN PRN Reason: Insomnia Last Admin: 02/14/18 21:09 Dose: 5 mg - Labs Labs: 02/14/18 09:35 02/14/18 09:35
[2018-02-15] MEDS: Albuterol-Ipratrop 3 mg / 0.5 (3 ml) UD INH SCH ×4 (01:53→20:13)
[2018-02-15 07:12] LABS: BASO # 0.1 K/uL (0.0-0.2); BASO % 1.4 % (0.0-2.0); EOS # 0.3 K/uL (0.0-0.7); EOS % 3.5 % (0.0-4.0); HEMOGLOBIN 10.4 g/dL (12.0-18.0); LYMPH # 1.1 K/uL (1.0-4.3); LYMPH % 12.1 % (20.0-40.0); MEAN CELL VOLUME 85.4 fL (80.0-94.0); MEAN CORPUSCULAR HEMOGLOBIN 28.2 pg (27.0-31.0); MEAN PLATELET VOLUME 7.2 fL (7.2-11.7); MONO # 0.9 K/uL (0.0-0.8); MONO % 10.6 % (0.0-10.0); NEUT # 6.4 K/uL (1.8-7.0); NEUT % 72.4 % (50.0-75.0); NRBC % 0.1 % (0.0-2.0); RBC 3.7 Mil/uL (4.40-5.90); RED CELL DISTRIBUTION WIDTH 18.7 % (11.5-14.5); WHITE BLOOD COUNT 8.9 K/uL (4.8-10.8)
[2018-02-15 08:15] LABS: ALBUMIN 3.5 g/dL (3.5-5.0); CALCIUM 8.8 mg/dl (8.6-10.4)
[2018-02-15] MEDS: Metoprolol Succinate 12.5 mg XL Tab PO SCH (09:56)
[2018-02-15] MEDS: POLYETHYLENE GLYCOL 3350 17 GM/Dose PACKET PO SCH (09:57)
[2018-02-15] MEDS ORDERED: Oxycodone/Acetaminophen 5/325 mg Tab PO ONE (11:02)
[2018-02-15] MEDS: Cefepime IV 1 gm in Dextrose 1 GM/50 ML BAG IVPB SCH (12:57)
[2018-02-16] MEDS: Cefepime IV 1 gm in Dextrose 1 GM/50 ML BAG IVPB SCH ×2 (01:00→12:38)
[2018-02-16] MEDS: Albuterol-Ipratrop 3 mg / 0.5 (3 ml) UD INH SCH ×4 (01:15→19:59)
[2018-02-16] MEDS: POLYETHYLENE GLYCOL 3350 17 GM/Dose PACKET PO SCH (09:44)
[2018-02-16] MEDS: Metoprolol Succinate 12.5 mg XL Tab PO SCH (09:45)
--- NOTE | 2018-02-16 21:54 | CP.PCM.PN ---
Subjective - Date & Time of Evaluation Date of Evaluation: 02/16/18 Time of Evaluation: 21:54 - Subjective Subjective: Patient supposed to be transferred to LTAC, but insurance denied. Patient still needs frequent wound dressing. He is feeling well. Potassium level is better. We will plan for possible subacute rehab otherwise possible discharge plan Objective - Vital Signs/Intake and Output Vital Signs (last 24 hours): Temp Pulse Resp BP Pulse Ox 98.7 F 72 20 116/65 98 02/16/18 15:37 02/16/18 15:37 02/16/18 15:37 02/16/18 15:37 02/16/18 15:37 - Medications Medications: Current Medications Acetaminophen (Tylenol 325mg Tab) 650 mg PO Q6 PRN PRN Reason: pain/fever Last Admin: 02/15/18 14:35 Dose: 650 mg Albuterol/Ipratropium (Duoneb 3 Mg/0.5 Mg (3 Ml) Ud) 3 ml INH RQ6 [facility] Last Admin: 02/16/18 19:59 Dose: Not Given Famotidine (Pepcid) 20 mg PO DAILY [facility] Last Admin: 02/16/18 09:45 Dose: 20 mg Furosemide (Lasix) 20 mg PO DAILY [facility] Last Admin: 02/16/18 09:45 Dose: 20 mg Heparin Sodium (Porcine) (Heparin) 5,000 units SC Q12H [facility] Last Admin: 02/16/18 17:14 Dose: 5,000 units Cefepime HCl (Maxipime Iv 1 Gm Premix) 1 gm in 50 mls @ 100 mls/hr IVPB Q12H [facility] PRN Reason: Protocol Last Admin: 02/16/18 12:38 Dose: 100 mls/hr Metoprolol Succinate (Toprol Xl) 12.5 mg PO DAILY [facility] Last Admin: 02/16/18 09:45 Dose: 12.5 mg Polyethylene Glycol (Miralax) 17 gm PO DAILY [facility] Last Admin: 02/16/18 09:44 Dose: Not Given Rosuvastatin Calcium (Crestor) 10 mg PO HS [facility] Last Admin: 02/16/18 21:44 Dose: 10 mg Tamsulosin HCl (Flomax) 0.4 mg PO DAILY [facility] Last Admin: 02/16/18 09:45 Dose: 0.4 mg Zolpidem Tartrate (Ambien) 5 mg PO HS PRN PRN Reason: Insomnia Last Admin: 02/16/18 01:00 Dose: 5 mg - Labs Labs: 02/15/18 06:52 02/15/18 06:52
[2018-02-17] MEDS: Cefepime IV 1 gm in Dextrose 1 GM/50 ML BAG IVPB SCH ×2 (01:02→12:56)
[2018-02-17] MEDS: Albuterol-Ipratrop 3 mg / 0.5 (3 ml) UD INH SCH ×4 (01:21→19:38)
[2018-02-17 07:49] LABS: BASO # 0.1 K/uL (0.0-0.2); BASO % 1.7 % (0.0-2.0); EOS # 0.3 K/uL (0.0-0.7); EOS % 4.1 % (0.0-4.0); LYMPH # 1.1 K/uL (1.0-4.3); LYMPH % 13.7 % (20.0-40.0); MEAN CORPUSCULAR HEMOGLOBIN 28.2 pg (27.0-31.0); MEAN CORPUSCULAR HGB CONC 32.8 g/dL (33.0-37.0); MEAN PLATELET VOLUME 7.1 fL (7.2-11.7); MONO # 0.9 K/uL (0.0-0.8); MONO % 10.9 % (0.0-10.0); NEUT # 5.7 K/uL (1.8-7.0); NEUT % 69.6 % (50.0-75.0); RBC 3.54 Mil/uL (4.40-5.90); RED CELL DISTRIBUTION WIDTH 19.1 % (11.5-14.5); WHITE BLOOD COUNT 8.1 K/uL (4.8-10.8)
[2018-02-17 08:15] LABS: ALBUMIN 3.5 g/dL (3.5-5.0); CALCIUM 8.9 mg/dl (8.6-10.4)
[2018-02-17] MEDS: POLYETHYLENE GLYCOL 3350 17 GM/Dose PACKET PO SCH (11:00)
[2018-02-17] MEDS: Metoprolol Succinate 12.5 mg XL Tab PO SCH (11:00)
[2018-02-18] MEDS: Cefepime IV 1 gm in Dextrose 1 GM/50 ML BAG IVPB SCH ×2 (01:10→12:49)
[2018-02-18] MEDS: Albuterol-Ipratrop 3 mg / 0.5 (3 ml) UD INH SCH ×2 (01:34→07:36)
[2018-02-18] MEDS: Metoprolol Succinate 12.5 mg XL Tab PO SCH (09:53)
[2018-02-18] MEDS: POLYETHYLENE GLYCOL 3350 17 GM/Dose PACKET PO SCH (09:54)
--- NOTE | 2018-02-18 20:25 | CP.PCM.PN ---
Subjective - Date & Time of Evaluation Date of Evaluation: 02/18/18 Time of Evaluation: 20:25 - Subjective Subjective: Patient is having pain in the left leg. Able to sit up and walk. Having some problem in mobility. Swelling of the left leg noted. We will get a possibly surgical evaluation Objective - Vital Signs/Intake and Output Vital Signs (last 24 hours): Temp Pulse Resp BP Pulse Ox 98.4 F 68 20 118/62 95 02/18/18 15:48 02/18/18 15:48 02/18/18 15:48 02/18/18 15:48 02/18/18 15:48 Intake and Output: 02/18/18 02/19/18 18:59 06:59 Intake Total 550 Balance 550 - Medications Medications: Current Medications Acetaminophen (Tylenol 325mg Tab) 650 mg PO Q6 PRN PRN Reason: pain/fever Last Admin: 02/18/18 09:55 Dose: 650 mg Albuterol/Ipratropium (Duoneb 3 Mg/0.5 Mg (3 Ml) Ud) 3 ml INH RQ6 [facility] Last Admin: 02/18/18 07:36 Dose: Not Given Famotidine (Pepcid) 20 mg PO DAILY [facility] Last Admin: 02/18/18 09:53 Dose: 20 mg Furosemide (Lasix) 20 mg PO DAILY [facility] Last Admin: 02/18/18 09:53 Dose: 20 mg Cefepime HCl (Maxipime Iv 1 Gm Premix) 1 gm in 50 mls @ 100 mls/hr IVPB Q12H [facility] PRN Reason: Protocol Last Admin: 02/18/18 12:49 Dose: 100 mls/hr Metoprolol Succinate (Toprol Xl) 12.5 mg PO DAILY [facility] Last Admin: 02/18/18 09:53 Dose: 12.5 mg Polyethylene Glycol (Miralax) 17 gm PO DAILY [facility] Last Admin: 02/18/18 09:54 Dose: Not Given Rosuvastatin Calcium (Crestor) 10 mg PO HS [facility] Last Admin: 02/17/18 21:24 Dose: 10 mg Tamsulosin HCl (Flomax) 0.4 mg PO DAILY [facility] Last Admin: 02/18/18 09:54 Dose: 0.4 mg Zolpidem Tartrate (Ambien) 5 mg PO HS PRN PRN Reason: Insomnia Last Admin: 02/17/18 21:27 Dose: 5 mg - Labs Labs: 02/17/18 07:23 02/17/18 07:23
[2018-02-19] MEDS: Albuterol-Ipratrop 3 mg / 0.5 (3 ml) UD INH SCH ×4 (01:32→19:21)
[2018-02-19] MEDS: Cefepime IV 1 gm in Dextrose 1 GM/50 ML BAG IVPB SCH ×2 (02:26→12:39)
[2018-02-19] MEDS: Metoprolol Succinate 12.5 mg XL Tab PO SCH (10:01)
[2018-02-19] MEDS: POLYETHYLENE GLYCOL 3350 17 GM/Dose PACKET PO SCH (10:01)
--- NOTE | 2018-02-19 11:07 | CP.PCM.PN ---
Subjective - Date & Time of Evaluation Date of Evaluation: 02/15/18 Time of Evaluation: 11:10 - Subjective Subjective: Patient currently having problem in transferring to LTAC. Pain noted. Swelling present. Will get possibly surgical evaluation. Wound management and will follow the patient Objective - Vital Signs/Intake and Output Vital Signs (last 24 hours): Temp Pulse Resp BP Pulse Ox 98.3 F 83 20 123/60 96 02/19/18 08:00 02/19/18 08:00 02/19/18 08:00 02/19/18 10:01 02/19/18 08:00 Intake and Output: 02/19/18 02/19/18 06:59 18:59 Intake Total 400 Balance 400 - Medications Medications: Current Medications Acetaminophen (Tylenol 325mg Tab) 650 mg PO Q6 PRN PRN Reason: pain/fever Last Admin: 02/18/18 09:55 Dose: 650 mg Albuterol/Ipratropium (Duoneb 3 Mg/0.5 Mg (3 Ml) Ud) 3 ml INH RQ6 [facility] Last Admin: 02/19/18 07:37 Dose: Not Given Famotidine (Pepcid) 20 mg PO DAILY [facility] Last Admin: 02/19/18 10:01 Dose: 20 mg Furosemide (Lasix) 20 mg PO DAILY [facility] Last Admin: 02/19/18 10:01 Dose: 20 mg Cefepime HCl (Maxipime Iv 1 Gm Premix) 1 gm in 50 mls @ 100 mls/hr IVPB Q12H [facility] PRN Reason: Protocol Last Admin: 02/19/18 02:26 Dose: 100 mls/hr Metoprolol Succinate (Toprol Xl) 12.5 mg PO DAILY [facility] Last Admin: 02/19/18 10:01 Dose: 12.5 mg Polyethylene Glycol (Miralax) 17 gm PO DAILY [facility] Last Admin: 02/19/18 10:01 Dose: Not Given Rosuvastatin Calcium (Crestor) 10 mg PO HS [facility] Last Admin: 02/18/18 21:35 Dose: 10 mg Tamsulosin HCl (Flomax) 0.4 mg PO DAILY [facility] Last Admin: 02/19/18 10:01 Dose: 0.4 mg Zolpidem Tartrate (Ambien) 5 mg PO HS PRN PRN Reason: Insomnia Last Admin: 02/18/18 21:35 Dose: 5 mg - Labs Labs: 02/17/18 07:23 02/17/18 07:23
--- NOTE | 2018-02-19 11:07 | CP.PCM.PN ---
Subjective - Date & Time of Evaluation Date of Evaluation: 02/12/18 Time of Evaluation: 11:07 - Subjective Subjective: Still feeling not well. Pain noted. No nausea no vomiting Vital signs stable. Latest potassium was noted to be elevated, being treated. Left leg discharge noted a wound discharge. In my opinion patient will need wound management, and wound care I recommended LTAC, currently pending Objective - Vital Signs/Intake and Output Vital Signs (last 24 hours): Temp Pulse Resp BP Pulse Ox 98.3 F 83 20 123/60 96 02/19/18 08:00 02/19/18 08:00 02/19/18 08:00 02/19/18 10:01 02/19/18 08:00 Intake and Output: 02/19/18 02/19/18 06:59 18:59 Intake Total 400 Balance 400 - Medications Medications: Current Medications Acetaminophen (Tylenol 325mg Tab) 650 mg PO Q6 PRN PRN Reason: pain/fever Last Admin: 02/18/18 09:55 Dose: 650 mg Albuterol/Ipratropium (Duoneb 3 Mg/0.5 Mg (3 Ml) Ud) 3 ml INH RQ6 [facility] Last Admin: 02/19/18 07:37 Dose: Not Given Famotidine (Pepcid) 20 mg PO DAILY [facility] Last Admin: 02/19/18 10:01 Dose: 20 mg Furosemide (Lasix) 20 mg PO DAILY [facility] Last Admin: 02/19/18 10:01 Dose: 20 mg Cefepime HCl (Maxipime Iv 1 Gm Premix) 1 gm in 50 mls @ 100 mls/hr IVPB Q12H [facility] PRN Reason: Protocol Last Admin: 02/19/18 02:26 Dose: 100 mls/hr Metoprolol Succinate (Toprol Xl) 12.5 mg PO DAILY [facility] Last Admin: 02/19/18 10:01 Dose: 12.5 mg Polyethylene Glycol (Miralax) 17 gm PO DAILY [facility] Last Admin: 02/19/18 10:01 Dose: Not Given Rosuvastatin Calcium (Crestor) 10 mg PO HS [facility] Last Admin: 02/18/18 21:35 Dose: 10 mg Tamsulosin HCl (Flomax) 0.4 mg PO DAILY [facility] Last Admin: 02/19/18 10:01 Dose: 0.4 mg Zolpidem Tartrate (Ambien) 5 mg PO HS PRN PRN Reason: Insomnia Last Admin: 02/18/18 21:35 Dose: 5 mg - Labs Labs: 02/17/18 07:23 02/17/18 07:23
--- NOTE | 2018-02-19 11:07 | CP.PCM.PN ---
Subjective - Date & Time of Evaluation Date of Evaluation: 02/11/18 Time of Evaluation: 11:07 - Subjective Subjective: Left leg pain and swelling noted. Patient is able to walk. He is using a walker mostly. Complaining of increasing pain Vital signs stable. Latest potassium was noted to be elevated, being treated. Left leg discharge noted a wound discharge. In my opinion patient will need wound management, and wound care I recommended LTAC, currently pending Objective - Vital Signs/Intake and Output Vital Signs (last 24 hours): Temp Pulse Resp BP Pulse Ox 98.3 F 83 20 123/60 96 02/19/18 08:00 02/19/18 08:00 02/19/18 08:00 02/19/18 10:01 02/19/18 08:00 Intake and Output: 02/19/18 02/19/18 06:59 18:59 Intake Total 400 Balance 400 - Medications Medications: Current Medications Acetaminophen (Tylenol 325mg Tab) 650 mg PO Q6 PRN PRN Reason: pain/fever Last Admin: 02/18/18 09:55 Dose: 650 mg Albuterol/Ipratropium (Duoneb 3 Mg/0.5 Mg (3 Ml) Ud) 3 ml INH RQ6 [facility] Last Admin: 02/19/18 07:37 Dose: Not Given Famotidine (Pepcid) 20 mg PO DAILY [facility] Last Admin: 02/19/18 10:01 Dose: 20 mg Furosemide (Lasix) 20 mg PO DAILY [facility] Last Admin: 02/19/18 10:01 Dose: 20 mg Cefepime HCl (Maxipime Iv 1 Gm Premix) 1 gm in 50 mls @ 100 mls/hr IVPB Q12H [facility] PRN Reason: Protocol Last Admin: 02/19/18 02:26 Dose: 100 mls/hr Metoprolol Succinate (Toprol Xl) 12.5 mg PO DAILY [facility] Last Admin: 02/19/18 10:01 Dose: 12.5 mg Polyethylene Glycol (Miralax) 17 gm PO DAILY [facility] Last Admin: 02/19/18 10:01 Dose: Not Given Rosuvastatin Calcium (Crestor) 10 mg PO HS [facility] Last Admin: 02/18/18 21:35 Dose: 10 mg Tamsulosin HCl (Flomax) 0.4 mg PO DAILY [facility] Last Admin: 09/14/18 10:01 Dose: 0.4 mg Zolpidem Tartrate (Ambien) 5 mg PO HS PRN PRN Reason: Insomnia Last Admin: 02/18/18 21:35 Dose: 5 mg - Labs Labs: 02/17/18 07:23 02/17/18 07:23
--- NOTE | 2018-02-19 11:13 | CP.PCM.PN ---
Subjective - Date & Time of Evaluation Date of Evaluation: 02/19/18 Time of Evaluation: 11:12 - Subjective Subjective: Patient now having more pain in the left leg. Swelling present. Denies any chest pain or shortness breath. Discharge noted in the left leg Vital signs stable. We will discuss with the vascular surgery evaluation. Patient definitely does need a wound management, awaiting for subacute rehab evaluation. Meanwhile we will discuss with the vascular surgery for possible further management. Objective - Vital Signs/Intake and Output Vital Signs (last 24 hours): Temp Pulse Resp BP Pulse Ox 98.3 F 83 20 123/60 96 02/19/18 08:00 02/19/18 08:00 02/19/18 08:00 02/19/18 10:01 02/19/18 08:00 Intake and Output: 02/19/18 02/19/18 06:59 18:59 Intake Total 400 Balance 400 - Medications Medications: Current Medications Acetaminophen (Tylenol 325mg Tab) 650 mg PO Q6 PRN PRN Reason: pain/fever Last Admin: 02/18/18 09:55 Dose: 650 mg Albuterol/Ipratropium (Duoneb 3 Mg/0.5 Mg (3 Ml) Ud) 3 ml INH RQ6 [facility] Last Admin: 02/19/18 07:37 Dose: Not Given Famotidine (Pepcid) 20 mg PO DAILY [facility] Last Admin: 02/19/18 10:01 Dose: 20 mg Furosemide (Lasix) 20 mg PO DAILY [facility] Last Admin: 02/19/18 10:01 Dose: 20 mg Cefepime HCl (Maxipime Iv 1 Gm Premix) 1 gm in 50 mls @ 100 mls/hr IVPB Q12H [facility] PRN Reason: Protocol Last Admin: 02/19/18 02:26 Dose: 100 mls/hr Metoprolol Succinate (Toprol Xl) 12.5 mg PO DAILY [facility] Last Admin: 02/19/18 10:01 Dose: 12.5 mg Polyethylene Glycol (Miralax) 17 gm PO DAILY [facility] Last Admin: 02/19/18 10:01 Dose: Not Given Rosuvastatin Calcium (Crestor) 10 mg PO HS [facility] Last Admin: 02/18/18 21:35 Dose: 10 mg Tamsulosin HCl (Flomax) 0.4 mg PO DAILY [facility] Last Admin: 02/19/18 10:01 Dose: 0.4 mg Zolpidem Tartrate (Ambien) 5 mg PO HS PRN PRN Reason: Insomnia Last Admin: 02/18/18 21:35 Dose: 5 mg - Labs Labs: 02/17/18 07:23 02/17/18 07:23
--- NOTE | 2018-02-19 13:23 | CP.PCM.CON ---
History of Present Illness - History of Present Illness History of Present Illness: An 83 year old male with PMHx of CAD, HLD, DM, HTN, and CHF has a left leg ulcer/redness and pain for the past 3 months. The major wound is on the left posterolateral calf with minor ulcerations on the left lower extremity. The pain is sharp, worsens with palpation, and is associated with a burning/itching sensation. The patient also describes edema in both legs bilaterally. Patient confirmed a mild headache. Patient denied fever, nausea, vomiting, shortness of breath, chest pain, and changes in bowel movements. PMHx - arthritis, CAD, CHF, demenetia, DM, gall bladder disease, HTN, HLD PSHx - cholecystectomy, coronary stent Allergies - NKDA Social - denies tobacco/alcohol use Review of Systems - Constitutional Constitutional: As Per HPI - EENT Eyes: As Per HPI Ears: As Per HPI Nose/Mouth/Throat: As Per HPI - Cardiovascular Cardiovascular: As Per HPI - Respiratory Respiratory: As Per HPI - Gastrointestinal Gastrointestinal: As Per HPI - Genitourinary Genitourinary: As Per HPI - Musculoskeletal Musculoskeletal: As Per HPI - Integumentary Integumentary: Erythema, Pruritus, Skin Pain, Skin Ulcer, Swelling - Neurological Neurological: As Per HPI - Psychiatric Psychiatric: As Per HPI - Endocrine Endocrine: As Per HPI - Hematologic/Lymphatic Hematologic: As Per HPI Past Patient History - Infectious Disease Hx of Infectious Diseases: None - Past Medical History & Family History Past Medical History?: Yes - Past Social History Smoking Status: Never Smoked - CARDIAC Hx Congestive Heart Failure: Yes Hx Hypercholesterolemia: Yes Hx Hypertension: Yes - PULMONARY Hx Respiratory Disorders: No - NEUROLOGICAL Hx Dementia: Yes - HEENT Hx HEENT Problems: Yes (wears glasses) - RENAL Hx Chronic Kidney Disease: No Hx Kidney Stones: No - HEMATOLOGICAL/ONCOLOGICAL Hx Blood Disorders: No - INTEGUMENTARY Hx Dermatological Problems: No - MUSCULOSKELETAL/RHEUMATOLOGICAL Hx Arthritis: Yes - GASTROINTESTINAL Hx Gall Bladder Disease: Yes - GENITOURINARY/GYNECOLOGICAL Hx Genitourinary Disorders: Yes Hx Prostate Problems: Yes - PSYCHIATRIC Hx Substance Use: No - SURGICAL HISTORY Hx Cholecystectomy: Yes Hx Coronary Stent: Yes - ANESTHESIA Hx Anesthesia: Yes Hx Anesthesia Reactions: No Hx Malignant Hyperthermia: No Meds Allergies/Adverse Reactions: Allergies Allergy/AdvReac Type Severity Reaction Status Date / Time No Known Allergies Allergy Verified 02/01/18 11:57 - Medications Medications: Current Medications Acetaminophen (Tylenol 325mg Tab) 650 mg PO Q6 PRN PRN Reason: pain/fever Last Admin: 02/18/18 09:55 Dose: 650 mg Albuterol/Ipratropium (Duoneb 3 Mg/0.5 Mg (3 Ml) Ud) 3 ml INH RQ6 [facility] Last Admin: 02/19/18 07:37 Dose: Not Given Famotidine (Pepcid) 20 mg PO DAILY [facility] Last Admin: 02/19/18 10:01 Dose: 20 mg Furosemide (Lasix) 20 mg PO DAILY [facility] Last Admin: 02/19/18 10:01 Dose: 20 mg Cefepime HCl (Maxipime Iv 1 Gm Premix) 1 gm in 50 mls @ 100 mls/hr IVPB Q12H [facility] PRN Reason: Protocol Last Admin: 02/19/18 12:39 Dose: 100 mls/hr Metoprolol Succinate (Toprol Xl) 12.5 mg PO DAILY [facility] Last Admin: 02/19/18 10:01 Dose: 12.5 mg Polyethylene Glycol (Miralax) 17 gm PO DAILY [facility] Last Admin: 02/19/18 10:01 Dose: Not Given Rosuvastatin Calcium (Crestor) 10 mg PO HS [facility] Last Admin: 02/18/18 21:35 Dose: 10 mg Tamsulosin HCl (Flomax) 0.4 mg PO DAILY [facility] Last Admin: 02/19/18 10:01 Dose: 0.4 mg Zolpidem Tartrate (Ambien) 5 mg PO HS PRN PRN Reason: Insomnia Last Admin: 02/18/18 21:35 Dose: 5 mg Physical Exam - Constitutional Appears: No Acute Distress - Head Exam Head Exam: ATRAUMATIC, NORMAL INSPECTION - Eye Exam Eye Exam: EOMI, Normal appearance Pupil Exam: NORMAL ACCOMODATION - ENT Exam ENT Exam: Normal Exam - Neck Exam Neck exam: Positive for: Normal Inspection - Respiratory Exam Respiratory Exam: NORMAL BREATHING PATTERN - Cardiovascular Exam Cardiovascular Exam: REGULAR RHYTHM - GI/Abdominal Exam GI & Abdominal Exam: Normal Bowel Sounds, Soft - Extremities Exam Extremities exam: Positive for: calf tenderness, pedal edema, tenderness. Negative for: pedal pulses present Additional comments: Larger ulcer present on the left posterolateral calf. Blanching erythema bilaterally. Sensation in tact bilaterally. Femoral pulses present bilaterally; no popliteal, posterior tibial, or dorsalis pedis pulses present bilaterally. - Back Exam Back exam: NORMAL INSPECTION - Neurological Exam Neurological exam: Alert, Oriented x3 - Psychiatric Exam Psychiatric exam: Normal Affect, Normal Mood - Skin Skin Exam: Erythema Additional comments: Blanching erythema on bilateral lower extremity Results - Vital Signs Recent Vital Signs: Last Vital Signs Temp 98.3 F 02/19/18 08:00 Pulse 83 02/19/18 08:00 Resp 20 02/19/18 08:00 BP 123/60 02/19/18 10:01 Pulse Ox 96 02/19/18 08:00 - Labs Result Diagrams: 02/17/18 07:23 02/17/18 07:23 Labs: Laboratory Results - last 24 hr 02/19/18 11:38 POC Glucose (mg/dL) 157 H Assessment & Plan - Assessment and Plan (Free Text) Assessment: An 83 year old male with PMHx of CAD, HLD, DM, and CHF with ulcer on left posterolateral calf. f/u CTA DW Dr. Patrick
[2018-02-19] MEDS ORDERED: Iodixanol 320 mg/ml 150 ml Bottle IV ONE ×2 (16:12→16:13)
[2018-02-20] MEDS: Cefepime IV 1 gm in Dextrose 1 GM/50 ML BAG IVPB SCH ×2 (00:25→12:50)
[2018-02-20] MEDS: Albuterol-Ipratrop 3 mg / 0.5 (3 ml) UD INH SCH ×4 (01:52→19:32)
--- NOTE | 2018-02-20 08:57 | CP.PCM.PN ---
Addendum entered and electronically signed by Evangelist Wang DO 02/20/18 11:22: Angio on Thursday NPO on Thursday DW Dr. Patrick Original Note: Subjective - Date & Time of Evaluation Date of Evaluation: 02/20/18 Time of Evaluation: 08:05 - Subjective Subjective: Pt seen and examined. Complaining of some pain along left leg at ulcer site. Objective - Vital Signs/Intake and Output Vital Signs (last 24 hours): Temp Pulse Resp BP Pulse Ox 99 F 75 20 133/66 91 L 02/20/18 07:34 02/20/18 07:34 02/20/18 07:34 02/20/18 07:34 02/20/18 07:34 Intake and Output: 02/20/18 02/20/18 06:59 18:59 Intake Total 650 Output Total 600 Balance 50 - Medications Medications: Current Medications Acetaminophen (Tylenol 325mg Tab) 650 mg PO Q6 PRN PRN Reason: pain/fever Last Admin: 02/19/18 21:26 Dose: 650 mg Albuterol/Ipratropium (Duoneb 3 Mg/0.5 Mg (3 Ml) Ud) 3 ml INH RQ6 [facility] Last Admin: 02/20/18 07:32 Dose: Not Given Famotidine (Pepcid) 20 mg PO DAILY [facility] Last Admin: 02/19/18 10:01 Dose: 20 mg Furosemide (Lasix) 20 mg PO DAILY [facility] Last Admin: 02/19/18 10:01 Dose: 20 mg Cefepime HCl (Maxipime Iv 1 Gm Premix) 1 gm in 50 mls @ 100 mls/hr IVPB Q12H [facility] PRN Reason: Protocol Last Admin: 02/20/18 00:25 Dose: 100 mls/hr Metoprolol Succinate (Toprol Xl) 12.5 mg PO DAILY [facility] Last Admin: 02/19/18 10:01 Dose: 12.5 mg Polyethylene Glycol (Miralax) 17 gm PO DAILY [facility] Last Admin: 02/19/18 10:01 Dose: Not Given Rosuvastatin Calcium (Crestor) 10 mg PO HS [facility] Last Admin: 02/19/18 21:21 Dose: 10 mg Tamsulosin HCl (Flomax) 0.4 mg PO DAILY [facility] Last Admin: 02/19/18 10:01 Dose: 0.4 mg Zolpidem Tartrate (Ambien) 5 mg PO HS PRN PRN Reason: Insomnia Last Admin: 02/19/18 21:21 Dose: 5 mg - Labs Labs: 02/17/18 07:23 02/17/18 07:23 - Constitutional Appears: No Acute Distress - Respiratory Exam Respiratory Exam: NORMAL BREATHING PATTERN - Cardiovascular Exam Cardiovascular Exam: +S1, +S2 - GI/Abdominal Exam GI & Abdominal Exam: Soft - Extremities Exam Additional comments: left leg ulcer - Neurological Exam Neurological Exam: Alert, Awake, Oriented x3 - Psychiatric Exam Psychiatric exam: Normal Mood - Skin Skin Exam: Dry, Intact, Warm Assessment and Plan - Assessment and Plan (Free Text) Assessment: An 83 year old male with PMHx of CAD, HLD, DM, and CHF with ulcer on left posterolateral calf. -Awaiting CTA results -local wound care DW Dr. Darnell Rios PGY3
[2018-02-20] MEDS: POLYETHYLENE GLYCOL 3350 17 GM/Dose PACKET PO SCH (09:34)
[2018-02-20] MEDS: Metoprolol Succinate 12.5 mg XL Tab PO SCH (09:40)
[2018-02-21] MEDS: Albuterol-Ipratrop 3 mg / 0.5 (3 ml) UD INH SCH ×4 (02:09→19:52)
--- NOTE | 2018-02-21 08:57 | CP.PCM.PN ---
Subjective - Date & Time of Evaluation Date of Evaluation: 02/21/18 Time of Evaluation: 08:54 - Subjective Subjective: Surgery Pt seen and examined. No acute events. Pt refusing for consent for Angio. Pt wants to think about it. Denies pain. Objective - Vital Signs/Intake and Output Vital Signs (last 24 hours): Temp Pulse Resp BP Pulse Ox 99.0 F 77 20 140/76 97 02/21/18 07:32 02/21/18 07:32 02/21/18 07:32 02/21/18 07:32 02/21/18 07:32 Intake and Output: 02/21/18 02/21/18 06:59 18:59 Intake Total 400 Output Total 200 Balance 200 - Medications Medications: Current Medications Acetaminophen (Tylenol 325mg Tab) 650 mg PO Q6 PRN PRN Reason: pain/fever Last Admin: 02/19/18 21:26 Dose: 650 mg Albuterol/Ipratropium (Duoneb 3 Mg/0.5 Mg (3 Ml) Ud) 3 ml INH RQ6 [facility] Last Admin: 02/21/18 07:31 Dose: Not Given Famotidine (Pepcid) 20 mg PO DAILY [facility] Last Admin: 02/20/18 09:34 Dose: 20 mg Furosemide (Lasix) 20 mg PO DAILY [facility] Last Admin: 02/20/18 09:34 Dose: 20 mg Metoprolol Succinate (Toprol Xl) 12.5 mg PO DAILY [facility] Last Admin: 02/20/18 09:40 Dose: 12.5 mg Polyethylene Glycol (Miralax) 17 gm PO DAILY [facility] Last Admin: 02/20/18 09:34 Dose: Not Given Rosuvastatin Calcium (Crestor) 10 mg PO HS [facility] Last Admin: 02/20/18 21:20 Dose: 10 mg Tamsulosin HCl (Flomax) 0.4 mg PO DAILY [facility] Last Admin: 02/20/18 09:34 Dose: 0.4 mg Zolpidem Tartrate (Ambien) 5 mg PO HS PRN PRN Reason: Insomnia Last Admin: 02/20/18 21:22 Dose: 5 mg - Labs Labs: 02/17/18 07:23 02/17/18 07:23 - Constitutional Appears: No Acute Distress - Head Exam Head Exam: ATRAUMATIC, NORMAL INSPECTION, NORMOCEPHALIC - Eye Exam Eye Exam: EOMI, Normal appearance, PERRL Pupil Exam: NORMAL ACCOMODATION, PERRL - ENT Exam ENT Exam: Mucous Membranes Moist, Normal Exam - Neck Exam Neck Exam: Full ROM, Normal Inspection. absent: Lymphadenopathy - Respiratory Exam Respiratory Exam: NORMAL BREATHING PATTERN - Cardiovascular Exam Cardiovascular Exam: REGULAR RHYTHM, +S1, +S2. absent: Murmur - GI/Abdominal Exam GI & Abdominal Exam: Soft. absent: Tenderness - Exam Exam: NORMAL INSPECTION - Extremities Exam Extremities Exam: Full ROM. absent: Normal Inspection Additional comments: LLE ulcer. - Back Exam Back Exam: NORMAL INSPECTION - Neurological Exam Neurological Exam: Alert, Awake, CN II-XII Intact, Normal Gait, Oriented x3 - Psychiatric Exam Psychiatric exam: Normal Affect, Normal Mood - Skin Skin Exam: Erythema, Normal Color, Warm. absent: Dry, Intact Assessment and Plan - Assessment and Plan (Free Text) Assessment: An 83 year old male with PMHx of CAD, HLD, DM, and CHF with ulcer on left posterolateral calf. CTA reviewed w Dr Cortes : LE peripheral segmental diseases -Planned for angio on Thursday -Pt refusing. Will reattempt to obtain consent -local wound care DW Dr. Cortes
[2018-02-21] MEDS: Metoprolol Succinate 12.5 mg XL Tab PO SCH (09:58)
[2018-02-21] MEDS: POLYETHYLENE GLYCOL 3350 17 GM/Dose PACKET PO SCH (10:03)
--- NOTE | 2018-02-21 14:09 | CP.PCM.PN ---
Subjective - Date & Time of Evaluation Date of Evaluation: 02/21/18 Time of Evaluation: 14:08 - Subjective Subjective: Patient now having more pain in the left leg. Swelling present. Denies any chest pain or shortness breath. Discharge noted in the left leg Vital signs stable. We will discuss with the vascular surgery evaluation. Patient definitely does need a wound management, awaiting for subacute rehab evaluation. Meanwhile we will discuss with the vascular surgery for possible further management. Objective - Vital Signs/Intake and Output Vital Signs (last 24 hours): Temp Pulse Resp BP Pulse Ox 99.0 F 77 20 140/76 97 02/21/18 07:32 02/21/18 07:32 02/21/18 07:32 02/21/18 10:00 02/21/18 07:32 Intake and Output: 02/21/18 02/21/18 06:59 18:59 Intake Total 400 Output Total 200 Balance 200 - Medications Medications: Current Medications Acetaminophen (Tylenol 325mg Tab) 650 mg PO Q6 PRN PRN Reason: pain/fever Last Admin: 02/19/18 21:26 Dose: 650 mg Albuterol/Ipratropium (Duoneb 3 Mg/0.5 Mg (3 Ml) Ud) 3 ml INH RQ6 [facility] Last Admin: 02/21/18 13:02 Dose: Not Given Famotidine (Pepcid) 20 mg PO DAILY [facility] Last Admin: 02/21/18 09:59 Dose: 20 mg Furosemide (Lasix) 20 mg PO DAILY [facility] Last Admin: 02/21/18 10:00 Dose: 20 mg Metoprolol Succinate (Toprol Xl) 12.5 mg PO DAILY [facility] Last Admin: 02/21/18 09:58 Dose: 12.5 mg Polyethylene Glycol (Miralax) 17 gm PO DAILY [facility] Last Admin: 02/21/18 10:03 Dose: Not Given Rosuvastatin Calcium (Crestor) 10 mg PO HS [facility] Last Admin: 02/20/18 21:20 Dose: 10 mg Tamsulosin HCl (Flomax) 0.4 mg PO DAILY [facility] Last Admin: 02/21/18 09:59 Dose: 0.4 mg Zolpidem Tartrate (Ambien) 5 mg PO HS PRN PRN Reason: Insomnia Last Admin: 02/20/18 21:22 Dose: 5 mg - Labs Labs: 02/17/18 07:23 09/12/18 07:23
[2018-02-22] MEDS: Albuterol-Ipratrop 3 mg / 0.5 (3 ml) UD INH SCH ×4 (01:24→19:13)
[2018-02-22 07:30] LABS: BASO # 0.2 K/uL (0.0-0.2); EOS # 0.3 K/uL (0.0-0.7); EOS % 4.4 % (0.0-4.0); HEMOGLOBIN 10.5 g/dL (12.0-18.0); LYMPH # 0.9 K/uL (1.0-4.3); MEAN CELL VOLUME 86.6 fL (80.0-94.0); MEAN CORPUSCULAR HEMOGLOBIN 27.5 pg (27.0-31.0); MEAN CORPUSCULAR HGB CONC 31.7 g/dL (33.0-37.0); MEAN PLATELET VOLUME 7.1 fL (7.2-11.7); MONO # 0.9 K/uL (0.0-0.8); MONO % 11.7 % (0.0-10.0); NEUT # 5.3 K/uL (1.8-7.0); NEUT % 69.9 % (50.0-75.0); NRBC % 0.1 % (0.0-2.0); RBC 3.83 Mil/uL (4.40-5.90); RED CELL DISTRIBUTION WIDTH 19.2 % (11.5-14.5); WHITE BLOOD COUNT 7.6 K/uL (4.8-10.8)
[2018-02-22 07:51] LABS: ALB/GLOB RATIO 1.1 (1.0-2.1); ALBUMIN 3.6 g/dL (3.5-5.0); ALT/SGPT 31 U/L (21-72); AST/SGOT 29 U/L (17-59); BLOOD UREA NITROGEN 43 mg/dL (9-20); GFR NON-AFRICAN AMERICAN 52
[2018-02-22 07:56] LABS: INR 1.3; PROTHROMBIN TIME 14.5 SECONDS (9.7-12.2)
[2018-02-22] MEDS ORDERED: Midazolam 2 MG/2 ML VIAL ONE (09:44)
[2018-02-22] MEDS ORDERED: Lidocaine 2% MPF (5 ml) Inj ONE ×2 (09:50→09:57)
[2018-02-22] MEDS ORDERED: Iodixanol 320 MG/ML 100 ML BOTTLE IV ONE (09:50)
[2018-02-22] MEDS: POLYETHYLENE GLYCOL 3350 17 GM/Dose PACKET PO SCH (10:02)
[2018-02-22] MEDS: Metoprolol Succinate 12.5 mg XL Tab PO SCH ×2 (10:02→12:33)
--- NOTE | 2018-02-22 10:32 | CT ---
Date of service: 02/19/2018 PROCEDURE: CT Angiography Abdomen, Pelvis and Lower Extremity with Contrast HISTORY: Left lower extremity ulcer COMPARISON: None available. TECHNIQUE: Technique: CT angiography of the abdomen, pelvis and bilateral lower extremities performed in the arterial phase of enhancement. Coronal and sagittal reformats, and well as rotating MIP images of the vessels generated at the workstation. Intravenous contrast dose: 150 milliliters Visipaque 320 Radiation dose: Total exam DLP = 3123.94 MGy-cm. This CT exam was performed using one or more of the following dose reduction techniques: Automated exposure control, adjustment of the mA and/or kV according to patient size, and/or use of iterative reconstruction technique. FINDINGS: CT ANGIOGRAPHY: ABDOMINAL AORTA:: Moderate calcific plaque in the mid aorta without stenosis or aneurysm. MAJOR AORTIC BRANCHES: Celiac Camargo: Unremarkable. Superior mesenteric artery: Unremarkable. Inferior mesenteric artery: Unremarkable. Renal arteries: Both renal arteries have moderate calcific plaque at the origin. Possible mild stenosis of renal arteries. PELVIC ARTERIES: Right Common Iliac: Unremarkable. Right External Iliac: Unremarkable. Right Internal Iliac: Unremarkable. Left Common Iliac: Unremarkable. Left External Iliac: Unremarkable. Left Internal Iliac: Unremarkable. RIGHT LOWER EXTREMITY ARTERIES: Right Common Femoral: Unremarkable. Right Superficial Femoral: Mild plaque in the SFA without significant stenosis. Right Profunda Femoris: Unremarkable. Right Popliteal:Unremarkable. Right Anterior Tibial: Moderate calcific plaque which limits evaluation. Believed to be patent. Right Tibioperoneal Trunk: Unremarkable. Right Posterior Tibial: Moderate plaque which limits evaluation. Believed to be occluded after the proximal segment. . Right Peroneal: Moderate calcific plaque which limits evaluation. Believed to occlude in the mid segment with no definite reconstitution. Right dorsalis pedis : Unremarkable. LEFT LOWER EXTREMITY ARTERIES: Left Common Femoral: Unremarkable. Left Superficial Femoral: Mild plaque in the SFA without significant stenosis. Left Profunda Femoris: Unremarkable. Left Popliteal: Unremarkable. Left Anterior Tibial: Moderate plaque in the anterior tibial artery. The anterior tibial artery is otherwise unremarkable. Left Tibioperoneal Trunk: Mild stenosis of the tibioperoneal artery. Left Posterior Tibial: The posterior tibial artery is believed to be occluded beginning in the mid segment with no definite reconstitution. Left Peroneal: Moderate plaque in the peroneal artery which limits evaluation. There is severe stenosis of the distal peroneal artery. Left Dorsalis pedis: Unremarkable. NON-ANGIOGRAPHIC ASPECT OF THE EXAM: LOWER THORAX: Mild bibasilar atelectasis. LIVER: Unremarkable. No gross lesion or ductal dilatation. GALLBLADDER AND BILE DUCTS: Unremarkable. PANCREAS: Unremarkable. No gross lesion or ductal dilatation. SPLEEN: Unremarkable. ADRENALS: Unremarkable. No mass. KIDNEYS AND URETERS: Unremarkable. No hydronephrosis. No solid mass. STOMACH AND BOWEL: Limited evaluation of PO contrast. No obstruction. No gross mural thickening. APPENDIX: Normal appendix. PERITONEUM: Unremarkable. No free fluid. No free air. LYMPH NODES: Unremarkable. No enlarged lymph nodes. BLADDER: Unremarkable. REPRODUCTIVE: Unremarkable. BONES: No acute fracture. OTHER FINDINGS: None. IMPRESSION: CT ANGIOGRAM ABDOMEN/ PELVIS: 1. Essentially unremarkable CT angiogram of the abdomen pelvis. 2. There is moderate calcific plaque at the origin of both right and left RA renal arteries. Possible stenosis of the renal arteries. This can be assessed on current CT image. RIGHT LOWER EXTREMITY CT ANGIOGRAM: 1. The common femoral artery, superficial femoral artery, profunda femoral artery and popliteal artery normal. 2. Runoff shows moderate calcification of all tibial vessel which limits evaluation. The anterior tibial artery is patent. The peroneal artery is believed to be occluded or severely stenotic beginning in mid segment. The posterior tibial artery is occluded in the proximal segment with no definite reconstitution. LEFT LOWER EXTREMITY CT ANGIOGRAM: 1. The common femoral artery, superficial femoral artery, profunda femoral artery and popliteal artery normal. 2. Runoff show moderately calcified anterior tibial artery which is patent. Posterior tibial artery is occluded beginning proximal segment with no definite reconstitution. The peroneal artery is moderately calcified and also severely stenotic in the distal segment.
--- NOTE | 2018-02-22 10:33 | PCM.SURG1 ---
Surgeon's Initial Post Op Note - Surgeon's Notes Surgeon: delvis Tooth Cutter Spur: 0 Type of Anesthesia: IV Sedation Anesthesia Administered By: agueda Pre-Operative Diagnosis: left leg ulcer Operative Findings: severe tibial disease Post-Operative Diagnosis: same Operation Performed: aortofemoral angiogram via right groin. selective catherization left femoral artery. no intervention. manual comprssion right groin Specimen/Specimens Removed: 0 Estimated Blood Loss: EBL {In ML}: 5 Blood Products Given: N/A Drains Used: No Drains Post-Op Condition: Good Date of Surgery/Procedure: 02/22/18 Time of Surgery/Procedure: 10:33
[2018-02-22] MEDS ORDERED: Benzocaine/Menthol (Cepacol) Lozenge MT PRN (16:30)
[2018-02-23] MEDS: Albuterol-Ipratrop 3 mg / 0.5 (3 ml) UD INH SCH ×4 (01:04→19:47)
--- NOTE | 2018-02-23 03:42 | VAS ---
DATE: 02/22/2018 PREOPERATIVE DIAGNOSIS: Ischemic ulcer, left leg. PROCEDURE CARRIED OUT: Aortofemoral angiogram via right groin, selective catheterization of left femoral artery. No intervention. SURGEON: Luigi Patrick Jr., MD. MARRIAGE AND FAMILY COUNSELOR: None. ANESTHESIOLOGIST: Mr. Connolly. ANESTHESIA: Local sedation. INDICATIONS: An 83-year-old man, with ischemic ulcer, left leg. OPERATIVE FINDINGS: The aorta and renal arteries are free of significant occlusive disease. Both common, external and internal iliac arteries, common femoral arteries, profunda femoris and superficial femoral arteries were widely patent. Both vessels were widely patent down to the trifurcation. On the left side, which was the more effected side, the anterior tibial artery continued down to the foot and the foot itself there were no named vessels. The posterior tibial artery occluded soon after the origin and the peroneal artery occluded in its mid portion. In the right leg, there was a similar pattern, but the anterior tibial artery did have a focal occlusion in its mid portion, below that the peroneal and the posterior tibial arteries were both occluded. Pressure applied to the right groin, there was no device used. PROCEDURE: The patient was given local anesthesia, intravenous antibiotics had previously been administered. The catheter was positioned, a RIM catheter was necessary to get over the aortic bifurcation. After this had been done, we then placed the catheter down in the popliteal artery, took selective pictures on the left side down to the level of the foot with the above mentioned findings. On the right side, groin and the above mentioned findings that were focal occlusion of the anterior tibial artery. PLAN: Medical management. No intervention carried out. Luigi Patrick Jr., MD
--- NOTE | 2018-02-23 08:12 | CP.PCM.PN ---
Subjective - Date & Time of Evaluation Date of Evaluation: 02/22/18 Time of Evaluation: 08:11 - Subjective Subjective: patient still having pain in the right leg. Patient underwent aortofemoral angiogram, patient has a diffuse tibial disease bilaterally. Only medical treatment Patient is complaining of mild abdominal discomfort to the On examination: Vital signs stable. Chest good entry bilaterally Regular heart sound noted Nontender abdomen Patient has a bilateral pedal edema Also skin changes still persistently noted Will continue the current daily dressing. Patient will need subacute rehabilitation, daily wound management. Will follow the patient Objective - Vital Signs/Intake and Output Vital Signs (last 24 hours): Temp Pulse Resp BP Pulse Ox 98.1 F 76 20 133/78 95 02/23/18 07:31 02/23/18 07:31 02/23/18 07:31 02/23/18 07:31 02/23/18 07:31 Intake and Output: 02/23/18 02/23/18 06:59 18:59 Intake Total 700 Balance 700 - Medications Medications: Current Medications Acetaminophen (Tylenol 325mg Tab) 650 mg PO Q6 PRN PRN Reason: pain/fever Last Admin: 02/21/18 17:48 Dose: 650 mg Albuterol/Ipratropium (Duoneb 3 Mg/0.5 Mg (3 Ml) Ud) 3 ml INH RQ6 [facility] Last Admin: 02/23/18 07:30 Dose: Not Given Benzocaine/Menthol (Cepacol Sore Throat) 1 margaret MT Q6 PRN PRN Reason: Sore Throat Last Admin: 02/22/18 17:40 Dose: 1 margaret Famotidine (Pepcid) 20 mg PO DAILY [facility] Last Admin: 02/22/18 10:02 Dose: Not Given Furosemide (Lasix) 20 mg PO DAILY [facility] Last Admin: 02/22/18 12:34 Dose: 20 mg Metoprolol Succinate (Toprol Xl) 12.5 mg PO DAILY [facility] Last Admin: 02/22/18 12:33 Dose: 12.5 mg Polyethylene Glycol (Miralax) 17 gm PO DAILY [facility] Last Admin: 02/22/18 10:02 Dose: Not Given Rosuvastatin Calcium (Crestor) 10 mg PO HS [facility] Last Admin: 02/22/18 21:35 Dose: 10 mg Tamsulosin HCl (Flomax) 0.4 mg PO DAILY [facility] Last Admin: 02/22/18 10:01 Dose: Not Given Zolpidem Tartrate (Ambien) 5 mg PO HS PRN PRN Reason: Insomnia Last Admin: 02/22/18 21:40 Dose: 5 mg - Labs Labs: 02/22/18 06:48 02/22/18 06:48 PT 14.5 SECONDS (9.7-12.2) H 02/22/18 06:48 INR 1.3 02/22/18 06:48 APTT 34 SECONDS (21-34) 02/22/18 06:48
[2018-02-23] MEDS: Metoprolol Succinate 12.5 mg XL Tab PO SCH (10:22)
[2018-02-23] MEDS: POLYETHYLENE GLYCOL 3350 17 GM/Dose PACKET PO SCH (10:23)
--- NOTE | 2018-02-23 14:50 | CP.PCM.PN ---
Subjective - Date & Time of Evaluation Date of Evaluation: 02/23/18 Time of Evaluation: 07:30 - Subjective Subjective: PGY-1 general surgery note for Dr Patrick Patient is seen and examined at bedside. Patient does not report any acute events overnight. Patient denies pain in left leg. Patient denies fever, chills, nausea or vomiting. Objective - Vital Signs/Intake and Output Vital Signs (last 24 hours): Temp Pulse Resp BP Pulse Ox 98.1 F 76 20 133/78 95 02/23/18 07:31 02/23/18 07:31 02/23/18 07:31 02/23/18 10:22 02/23/18 07:31 Intake and Output: 02/23/18 02/23/18 06:59 18:59 Intake Total 700 Balance 700 - Medications Medications: Current Medications Acetaminophen (Tylenol 325mg Tab) 650 mg PO Q6 PRN PRN Reason: pain/fever Last Admin: 02/21/18 17:48 Dose: 650 mg Albuterol/Ipratropium (Duoneb 3 Mg/0.5 Mg (3 Ml) Ud) 3 ml INH RQ6 ODILIA Last Admin: 02/23/18 13:27 Dose: Not Given Benzocaine/Menthol (Cepacol Sore Throat) 1 margaret MT Q6 PRN PRN Reason: Sore Throat Last Admin: 02/22/18 17:40 Dose: 1 margaret Famotidine (Pepcid) 20 mg PO DAILY ODILIA Last Admin: 02/23/18 10:22 Dose: 20 mg Furosemide (Lasix) 20 mg PO DAILY ODILIA Last Admin: 02/23/18 10:22 Dose: 20 mg Metoprolol Succinate (Toprol Xl) 12.5 mg PO DAILY ODILIA Last Admin: 02/23/18 10:22 Dose: 12.5 mg Polyethylene Glycol (Miralax) 17 gm PO DAILY ODILIA Last Admin: 02/23/18 10:23 Dose: Not Given Rosuvastatin Calcium (Crestor) 10 mg PO HS ODILIA Last Admin: 02/22/18 21:35 Dose: 10 mg Tamsulosin HCl (Flomax) 0.4 mg PO DAILY [facility] Last Admin: 02/23/18 10:22 Dose: 0.4 mg Zolpidem Tartrate (Ambien) 5 mg PO HS PRN PRN Reason: Insomnia Last Admin: 02/22/18 21:40 Dose: 5 mg - Labs Labs: 02/22/18 06:48 02/22/18 06:48 PT 14.5 SECONDS (9.7-12.2) H 02/22/18 06:48 INR 1.3 02/22/18 06:48 APTT 34 SECONDS (21-34) 02/22/18 06:48 - Constitutional Appears: Non-toxic, No Acute Distress - Head Exam Head Exam: ATRAUMATIC, NORMAL INSPECTION, NORMOCEPHALIC - Eye Exam Eye Exam: EOMI, Normal appearance - ENT Exam ENT Exam: Mucous Membranes Moist, Normal Exam - Neck Exam Neck Exam: Full ROM, Normal Inspection - Respiratory Exam Respiratory Exam: NORMAL BREATHING PATTERN. absent: Accessory Muscle Use, Respiratory Distress - GI/Abdominal Exam GI & Abdominal Exam: Soft - Extremities Exam Additional comments: LLE ulcer, wrapped with dressing. nontender, not warm right inguinal area incision wound, covered in dressing, c/d/i, nontender to palpation - Back Exam Back Exam: NORMAL INSPECTION - Neurological Exam Neurological Exam: Alert, Awake - Psychiatric Exam Psychiatric exam: Normal Mood - Skin Skin Exam: Normal Color, Warm Assessment and Plan - Assessment and Plan (Free Text) Assessment: An 83 year old male with PMHx of CAD, HLD, DM, and CHF with ulcer on left posterolateral calf s/p CTA pod#1 Plan: - no further surgical intervention at this time - continue medical management as per medicine Plan to be discussed with Dr Darnell Mendez, PGY-1
[2018-02-24] MEDS: Albuterol-Ipratrop 3 mg / 0.5 (3 ml) UD INH SCH ×3 (01:12→13:29)
[2018-02-24 08:29] VITALS: BP 113/65; PULSE 84; TEMP 99.2; O2SAT 94
[2018-02-24] MEDS: POLYETHYLENE GLYCOL 3350 17 GM/Dose PACKET PO SCH (09:41)
[2018-02-24] MEDS: Metoprolol Succinate 12.5 mg XL Tab PO SCH (09:52)
--- NOTE | 2018-02-24 16:49 | CP.PCM.PN ---
Subjective - Date & Time of Evaluation Date of Evaluation: 02/24/18 Time of Evaluation: 11:00 - Subjective Subjective: alert, out of bed, denies acute pain, no sob or chest pains. Objective - Vital Signs/Intake and Output Vital Signs (last 24 hours): Temp Pulse Resp BP Pulse Ox 99.2 F 84 20 113/65 94 L 02/24/18 08:00 02/24/18 08:00 02/24/18 08:00 02/24/18 09:40 02/24/18 08:00 Intake and Output: 02/24/18 02/24/18 06:59 18:59 Intake Total 340 120 Balance 340 120 - Labs Labs: 02/22/18 06:48 02/22/18 06:48 PT 14.5 SECONDS (9.7-12.2) H 02/22/18 06:48 INR 1.3 02/22/18 06:48 APTT 34 SECONDS (21-34) 02/22/18 06:48 Assessment and Plan - Assessment and Plan (Free Text) Assessment: 83 year old male admitted with left leg cellulitis, alert and oriented , out of bed on wheelchair, no acute pain noted. Discussed with DR Ramirez, plan to discharge to [facility] [place], will be transferred today since patient agreed to go. Advised to continue daily dressing to left leg with rad and HOWIE.
--- NOTE | 2018-03-11 14:58 | CARD ---
APPROVED REPORT Date of service: 02/13/2018 EKG Measurement Heart [id number] <Conclusion> Sinus rhythm with 1st degree AV block Right bundle branch block Left anterior fascicular block Bifascicular block T wave abnormality, consider inferolateral ischemia Abnormal ECG
--- NOTE | 2018-04-08 13:08 | DS ---
HISTORY: This is an 83-year-old male with a history of hypertension, CAD, hypercholesterolemia, status post stent in 2015 and history of cholecystectomy, also has a history of aortic stenosis, history of ME x2 in the past, admitted to the hospital initially with increasing bilateral leg swelling, redness and rash associated with signs and symptoms suggestive of cellulitis. PAST MEDICAL HISTORY: The patient has a past medical history as noted above. PAST SURGICAL HISTORY: He has a surgical history of cholecystectomy and a stent in the heart. FAMILY HISTORY: Significant for CAD. SOCIAL HISTORY: The patient denied any smoking or alcohol in the past. The patient lives by himself in the senior [facility]. MEDICATIONS: The patient was taking multiple medications including metoprolol, simvastatin, Plavix, lisinopril, Flomax, and isosorbide. PHYSICAL EXAMINATION: On admission, clinical examination unremarkable except bilateral leg swelling and leg edema and also redness associated with skin changes including skin abrasions and skin peeling. On examination, initially suspected cellulitis bilateral lower extremities. LABORATORY DATA: He was also having mild elevation of the WBC noted, BUN elevated noted, elevated blood sugar noted. EKG showing evidence of right bundle branch block. ASSESSMENT: Initial admission, 83-year-old male with a history of diabetes mellitus, hypertension, hyperlipidemia, coronary artery disease, status post stent, admitted with elevated Pro-BNP and congestive heart failure pattern in the chest x-ray, likely decompensated and associated with bilateral pedal edema and cellulitis more on the left side than the right side. The patient admitted to the hospital and started on intravenous antibiotics, intravenous Lasix. Physical therapy started. COURSE IN THE HOSPITAL: During the stay in the hospital, the patient's leg swelling was slowly improving. The patient was also seen by strategic marketing manager and also was seen by vascular surgeon and he was needing further management. The patient had frequent episodes of hyperkalemia, treated with Kayexalate. He was also treated with antibiotics for the possible cellulitis. As the patient lives by himself, the patient was having difficult time in taking care of his medications as well as personal hygiene. It was decided that the patient will need a long-term acute care and the patient was agreeing for transfer to rehabilitation. The patient had an episode of fall in the hospital also. At that time, he had no evidence of any acute fractures was noted. The patient also underwent angiogram including aortofemoral angiogram through the right groin and noted to have severe tibial disease and associated with the left leg ulcer. Suggested medical management at that time. The patient is clinically stable. He will be discharged to Clinic for skilled nursing acute care. The patient will be continuing the dressing to the left leg with the Medihoney and wet-to-dry dressing. The patient will be also followed up by medical team at . FINAL DIAGNOSES: Cellulitis right leg, peripheral vascular disease, nonhealing ulcer, pedal edema, decompensated systolic heart failure. I discussed with the patient in detail. Keely Ramirez MD
== END 2018-02-24 14:02 | DRG 602 ==
LOC: C.ER 11:46 → C.9E 16:05 → C.3T 17:27
PROVIDERS: ADMIT Internal Medicine; ATTEND Internal Medicine
PROC: B4001ZZ Plain Radiography of Abdominal Aorta using Low Osmolar Contrast (ICD-10-PCS; principal; 2018-02-22)
PROC: B40G1ZZ Plain Radiography of Left Lower Extremity Arteries using Low Osmolar Contrast (ICD-10-PCS; 2018-02-22)
PROC: B420ZZZ Computerized Tomography (CT Scan) of Abdominal Aorta (ICD-10-PCS; 2018-02-22)
PROC: B42HZZZ Computerized Tomography (CT Scan) of Bilateral Lower Extremity Arteries (ICD-10-PCS; 2018-02-22)
DX: L03.115 Cellulitis of right lower limb (principal); I50.23 Acute on chronic systolic (congestive) heart failure; E11.622 Type 2 diabetes mellitus with other skin ulcer; L97.229 Non-pressure chronic ulcer of left calf with unspecified severity; L97.929 Non-pressure chronic ulcer of unspecified part of left lower leg with unspecified severity; L03.116 Cellulitis of left lower limb; E11.51 Type 2 diabetes mellitus with diabetic peripheral angiopathy without gangrene; I11.0 Hypertensive heart disease with heart failure; E87.5 Hyperkalemia; I35.0 Nonrheumatic aortic (valve) stenosis; I25.10 Atherosclerotic heart disease of native coronary artery without angina pectoris; F03.90 Unspecified dementia, unspecified severity, without behavioral disturbance, psychotic disturbance, mood disturbance, and anxiety; E78.5 Hyperlipidemia, unspecified; E78.00 Pure hypercholesterolemia, unspecified; W06.XXXA Fall from bed, initial encounter; Y92.230 Patient room in hospital as the place of occurrence of the external cause; Z95.5 Presence of coronary angioplasty implant and graft; I25.2 Old myocardial infarction; Z90.49 Acquired absence of other specified parts of digestive tract